=== PATIENT | male | born 1955 | race Caucasian/White ===

== ENCOUNTER → 2016-12-23 | Outpatient (CLI) | payer OTHER ==
--- NOTE | 2016-12-23 09:12 | US ---
EXAMINATION TYPE: US renals and bladder DATE OF EXAM: 12/23/2016 8:30 AM COMPARISON: NONE CLINICAL HISTORY: R31.0 gross hematuria. Sudden onset gross hematuria EXAM MEASUREMENTS: Right Kidney: 13.5 x 9.3 x 9.2 cm Left Kidney: 12.0 x 6.8 x 5.5 cm TECHNOLOGIST IMPRESSION: Right Kidney: large heterogeneous vascular mass = 13.2 x 11.6 x 13.1cm Left Kidney: cystic area upper pole = 1.0 x 1.0 x 1.0cm Bladder: irregular mass-like area posterior wall = 4.1 x 2.5 x 4.3cm Bilateral Jets seen: yes Normal Post Void Residual: patient unable to urinate There is no evidence for hydronephrosis at this point in time. No nephrolithiasis is seen. The urin mu bladder is anechoic. Bilateral ureteral jets are seen near the level of the mass on images saved . There is suspicious large heterogeneous solid partially exophytic mass from the right kidney worrisom e for neoplasm given patient history. There is also suspicious lobulated mass suspected in the bladde r in which neoplasm needs to BE excluded. IMPRESSION: Suspicious large right renal solid mass and bladder mass both worrisome for neoplasm. Urology and nida gical follow-up advised. Consider confirmation with CT urogram to confirm 2 suspicious areas.
--- NOTE | 2016-12-23 09:30 | US ---
EXAMINATION TYPE: US prostate transrectal DATE OF EXAM: 12/23/2016 8:52 AM COMPARISON: NONE CLINICAL HISTORY: N32.89 bladder spasm/R53.83 fatigue/R31.0 gross hematuria. This examination was performed using the transrectal probe. EXAM MEASUREMENTS: Gland Size: 4.6 x 2.8 x 4.1cm Volume: 28.0ml Predicted PSA: 3.36 Actual PSA (if available):unavailable TECHNOLOGIST IMPRESSION: Heterogeneous gland with no distinct nodule within peripheral zone. Calcifi cations noted The visualized seminal vesicles are unremarkable towards the beginning of study. Prostate gland is up per limits of normal in size with some central zone calcifications present. No worrisome hypoechoic n odule is identified. IMPRESSION: Prostate gland is upper limits of normal in size, no worrisome nodules are evident.
== END | disposition home or self-care (01) ==
LOC: RADUSMAIN 07:55
PROVIDERS: ATTEND Nurse Practitioner
DX: R53.83 Other fatigue (principal); R31.0 Gross hematuria; N32.89 Other specified disorders of bladder
CPT/HCPCS: 76770; 76872

== ENCOUNTER → 2016-12-27 | Outpatient (CLI) | payer OTHER ==
[2016-12-27 09:28] LABS: Blood Urea Nitrogen 17 mg/dL (9-20); Non-African American GFR(MDRD) 55 (>60 ml/min/1.73 sqM)
--- NOTE | 2016-12-27 11:08 | CT ---
EXAMINATION TYPE: CT chest abdomen w con DATE OF EXAM: 12/27/2016 10:41 AM COMPARISON: Correlation ultrasound performed 12/23/2016 HISTORY: 61-year-old male with renal and Bladder mass TECHNIQUE: Contiguous axial scanning of the chest and abdomen following administration of 80 ml Visip aque 320 IV contrast. Delayed images through the kidneys and coronal/sagittal reconstructions perfor med. CT DLP: 2179.8 mGycm Automated exposure control for dose reduction was used. FINDINGS: CHEST: The heart is normal size without pericardial effusion. Ectasia of the ascending aorta 3.8 cm with conventional arch vessel branching anatomy. There is an enlarged left tracheobronchial angle lymph node in the mediastinum measuring 1.4 cm. Zaid tional smaller mediastinal lymph nodes are not enlarged by CT size criteria. Mild bilateral gynecomas tia is noted. Numerous pulmonary nodules are present throughout both lungs, most of which are small measuring on th e order of 6 mm. Larger pulmonary nodules in the left mid and lower lung measure up to 1.2 and 1.8 cm , respectively. There is additional abnormal pleural-based soft tissue thickening measuring 3.2 x 1.1 cm posterolateral right upper lobe. No consolidation or pleural effusion. ABDOMEN: There is a hypervascular focus in the right hepatic dome, axial image 44 which is suspicious. The gallbladder, left adrenal gland, spleen, and pancreas appear within normal limits. Subcentimeter cortical cyst lateral upper pole left kidney. There is a very large heterogeneously enhancing mass involving the lateral right kidney extending fro m the upper pole to the lower pole measuring up to 13.8 cm craniocaudal by 14.5 cm AP by 10.7 cm wide . Portions of this mass extend to involve the renal sinus region and the collecting systems. There is also delayed excretion of contrast from the right kidney. There appears to be thrombus extending across the right renal vein and into the IVC extending up to t he level of the diaphragm, refer to coronal images 53 and 57. Some nodularity of the right adrenal gland 1.5 cm, axial image 59 and coronal image 60. Borderline enlarged retroperitoneal lymph nodes measure up to 7 mm particularly in the pericaval griselda on and are indeterminate. No mesenteric lymphadenopathy seen. Normal appendix. No dilated small bowel, free fluid, or free air. Mild stool burden without pericolon ic inflammatory change. BONES: Area of endosteal scalloping seen within the left iliac crest, axial image 94 is suspicious additiona l lytic area within the left L4 vertebral body with a mild pathologic compression deformity. Expansile lytic destruction involving the right acromion, axial image 2. Possible enhancing soft tiss ue lesion along the lateral mid right latissimus dorsi, axial image 33. IMPRESSION: 1. Large 13.8 cm heterogeneously enhancing mass involving the lateral right kidney highly suggestive of RCC extending from the upper pole to lower pole and demonstrating some invasion of the renal sinus and central collecting system. 2. Tumor versus bland thrombus within the right renal vein and extending up in the IVC to the level o f the diaphragm. 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 3. Findings compatible with metastatic disease with numerous pulmonary nodules measuring up to 1.8 cm , right upper lobe pleural-based metastasis measuring 3.2 cm, left tracheobronchial angle lymph node measuring 1.4 cm, and suspected hypervascular metastasis in the right hepatic dome. Right adrenal gla nd nodularity measuring 1.5 cm and borderline enlarged pericaval lymph nodes in the retroperitoneum m easuring 7 mm are equivocal for metastatic disease. 4. Additional osseous metastases with lytic destruction involving the right acromion, pathologic mild vertebral compression deformity of L4, and lytic metastatic disease involving the left iliac crest. Possible soft tissue metastasis involving the lateral right latissimus dorsi.
== END | disposition home or self-care (01) ==
LOC: RADCTMAIN 08:30
PROVIDERS: ATTEND Urology
DX: N28.89 Other specified disorders of kidney and ureter (principal); C79.51 Secondary malignant neoplasm of bone; E27.8 Other specified disorders of adrenal gland; R59.0 Localized enlarged lymph nodes
CPT/HCPCS: 82565; 84520; 71260; 74160; 36415; Q9967

== ENCOUNTER 2017-01-29 21:25 | Inpatient (IN) | payer OTHER ==
[2017-01-29] MEDS ORDERED: SODIUM CHLORIDE 0.9% 1,000 ML IV STA (22:07)
[2017-01-29] MEDS ORDERED: SODIUM CHLORIDE 0.9% 500 ML IV STA (22:07)
[2017-01-29] MEDS ORDERED: RX INFO: IV CONTRAST WAS GIVEN 1 EACH MISC MISCELLANE PRN (22:07)
--- NOTE | 2017-01-29 22:19 | ED ---
General Adult HPI - General Chief complaint: Shortness of Breath Stated complaint: Diff breathing Time Seen by Provider: 01/29/17 21:36 Source: patient, RN notes reviewed, old records reviewed Mode of arrival: wheelchair Limitations: no limitations - History of Present Illness Initial comments: This is a 61-year-old male here for evaluation of chest pain and shortness of breath right upper chest pain and shortness of breath for about 2 days now. Patient does have significant history of recent renal cell carcinoma, and multiple areas of metastasis. Patient denies fever, has been doing some supplementation with vitamins and medications at home no formal treatment. Patient denies again fever sick contacts, has not been overnight in the hospital. An pain is right-sided with movement - Related Data Home Medications Medication Instructions Recorded Confirmed No Known Home Medications [No 01/29/17 01/29/17 Known Home Medications] Allergies Allergy/AdvReac Type Severity Reaction Status Date / Time No Known Allergies Allergy Verified 01/29/17 21:29 Review of Systems ROS Statement: Those systems with pertinent positive or pertinent negative responses have been documented in the HPI. ROS Other: All systems not noted in ROS Statement are negative. Past Medical History Past Medical History: Cancer History of Any Multi-Drug Resistant Organisms: None Reported Past Surgical History: No Surgical Hx Reported Past Psychological History: No Psychological Hx Reported Smoking Status: Former smoker Past Alcohol Use History: None Reported Past Drug Use History: Marijuana General Exam Limitations: no limitations General appearance: anxious Head exam: Present: atraumatic, normocephalic, normal inspection Eye exam: Present: normal appearance, PERRL, EOMI. Absent: scleral icterus, conjunctival injection, periorbital swelling ENT exam: Present: normal exam, mucous membranes moist Neck exam: Present: normal inspection. Absent: tenderness, meningismus, lymphadenopathy Respiratory exam: Present: normal lung sounds bilaterally. Absent: respiratory distress, wheezes, rales, rhonchi, stridor Cardiovascular Exam: Present: normal rhythm, tachycardia, normal heart sounds. Absent: systolic murmur, diastolic murmur, rubs, gallop, clicks GI/Abdominal exam: Present: soft, normal bowel sounds. Absent: distended, tenderness, guarding, rebound, rigid Extremities exam: Present: normal inspection, full ROM, normal capillary refill. Absent: tenderness, pedal edema, joint swelling, calf tenderness Back exam: Present: normal inspection Neurological exam: Present: alert, oriented X3, CN II-XII intact Psychiatric exam: Present: normal affect, normal mood Skin exam: Present: warm, dry, intact, normal color. Absent: rash Course Vital Signs 01/29/17 01/30/17 21:29 00:01 Temperature 98.5 F 98.0 F Pulse Rate 120 H 100 Respiratory 20 20 Rate Blood Pressure 136/79 130/83 O2 Sat by Pulse 92 L 95 Oximetry - Reevaluation(s) Reevaluation #1: 01/30/17 00:31 Can continue significant shortness of breath, patient swears that is positional and not pain related. He does get very anxious and his pulse ox drops to the low 90s high 80s with tachypnea Medical Decision Making - Medical Decision Making 61-year-old male to the ER with new diagnosis of renal CA, with metastasis, patient does have CT positive for PE with shortness of breath and hypoxia. Patient's hypoxia is correctable with oxygen patient will be admitted for hemodynamic monitoring, anticoagulation and pain control. - Lab Data Result diagrams: 01/29/17 22:36 01/29/17 22:36 Lab Results 01/29/17 01/29/17 01/29/17 Range/Units 22:36 22:36 22:36 WBC 12.2 H (3.8-10.6) k/uL RBC 4.78 (4.30-5.90) m/uL Hgb 13.7 (13.0-17.5) gm/dL Hct 40.8 (39.0-53.0) % MCV 85.3 (80.0-100.0) fL MCH 28.6 (25.0-35.0) pg MCHC 33.6 (31.0-37.0) g/dL RDW 12.5 (11.5-15.5) % Plt Count 349 (150-450) k/uL Neutrophils % 77 % Lymphocytes % 13 % Monocytes % 7 % Eosinophils % 2 % Basophils % 1 % Neutrophils # 9.3 H (1.3-7.7) k/uL Lymphocytes # 1.6 (1.0-4.8) k/uL Monocytes # 0.8 (0-1.0) k/uL Eosinophils # 0.2 (0-0.7) k/uL Basophils # 0.1 (0-0.2) k/uL PT (9.0-12.0) sec INR (<1.1) APTT (22.0-30.0) sec D-Dimer (<0.60) mg/L FEU Sodium 137 (137-145) mmol/L Potassium 4.8 (3.5-5.1) mmol/L Chloride 102 (98-107) mmol/L Carbon Dioxide 25 (22-30) mmol/L Anion Gap 10 mmol/L BUN 16 (9-20) mg/dL Creatinine 1.00 (0.66-1.25) mg/dL Est GFR (MDRD) Af Amer >60 (>60 ml/min/1.73 sqM) Est GFR (MDRD) Non-Af >60 (>60 ml/min/1.73 sqM) Glucose 107 H (74-99) mg/dL Plasma Lactic Acid Janusz (0.7-2.0) mmol/L Calcium 10.6 H (8.4-10.2) mg/dL Phosphorus 3.8 (2.5-4.5) mg/dL Magnesium 2.1 (1.6-2.3) mg/dL Total Bilirubin 0.7 (0.2-1.3) mg/dL AST 33 (17-59) U/L ALT 31 (21-72) U/L Alkaline Phosphatase 77 (38-126) U/L Total Creatine Kinase 22 L (55-170) U/L CK-MB (CK-2) 0.5 (0.0-2.4) ng/mL CK-MB (CK-2) Rel Index 2.3 Troponin I <0.012 (0.000-0.034) ng/mL NT-Pro-B Natriuret Pep pg/mL Total Protein 6.8 (6.3-8.2) g/dL Albumin 3.7 (3.5-5.0) g/dL 01/29/17 01/29/17 01/29/17 Range/Units 22:36 22:36 22:36 WBC (3.8-10.6) k/uL RBC (4.30-5.90) m/uL Hgb (13.0-17.5) gm/dL Hct (39.0-53.0) % MCV (80.0-100.0) fL MCH (25.0-35.0) pg MCHC (31.0-37.0) g/dL RDW (11.5-15.5) % Plt Count (150-450) k/uL Neutrophils % % Lymphocytes % % Monocytes % % Eosinophils % % Basophils % % Neutrophils # (1.3-7.7) k/uL Lymphocytes # (1.0-4.8) k/uL Monocytes # (0-1.0) k/uL Eosinophils # (0-0.7) k/uL Basophils # (0-0.2) k/uL PT 10.9 (9.0-12.0) sec INR 1.1 (<1.1) APTT 23.5 (22.0-30.0) sec D-Dimer 5.00 H (<0.60) mg/L FEU Sodium (137-145) mmol/L Potassium (3.5-5.1) mmol/L Chloride (98-107) mmol/L Carbon Dioxide (22-30) mmol/L Anion Gap mmol/L BUN (9-20) mg/dL Creatinine (0.66-1.25) mg/dL Est GFR (MDRD) Af Amer (>60 ml/min/1.73 sqM) Est GFR (MDRD) Non-Af (>60 ml/min/1.73 sqM) Glucose (74-99) mg/dL Plasma Lactic Acid Janusz 1.3 (0.7-2.0) mmol/L Calcium (8.4-10.2) mg/dL Phosphorus (2.5-4.5) mg/dL Magnesium (1.6-2.3) mg/dL Total Bilirubin (0.2-1.3) mg/dL AST (17-59) U/L ALT (21-72) U/L Alkaline Phosphatase (38-126) U/L Total Creatine Kinase (55-170) U/L CK-MB (CK-2) (0.0-2.4) ng/mL CK-MB (CK-2) Rel Index Troponin I (0.000-0.034) ng/mL NT-Pro-B Natriuret Pep 254 pg/mL Total Protein (6.3-8.2) g/dL Albumin (3.5-5.0) g/dL - Radiology Data Radiology results: report reviewed (CT is positive for PE), image reviewed Critical Care Time Critical Care Time: Yes Total Critical Care Time: 31 Disposition Clinical Impression: Acute pulmonary embolism, Hypoxia Disposition: ADMITTED IP TO THIS [facility] Condition: Serious Referrals: Evelyn Negrete MD [Primary Care Provider] - 1-2 days
[2017-01-29 22:50] LABS: Basophils # (A) 0.1 k/uL (0-0.2); Basophils % (A) 1 %; CH 28.6; CHCM 33.6; Eosinophils # (A) 0.2 k/uL (0-0.7); Eosinophils % (A) 2 %; HCT 40.8 % (39.0-53.0); HDW 2.67; HGB 13.7 gm/dL (13.0-17.5); Luc # (Auto) 0.22; Luc % (Auto) 2; Lymphocytes # (A) 1.6 k/uL (1.0-4.8); Lymphocytes % (A) 13 %; MCH 28.6 pg (25.0-35.0); MCHC 33.6 g/dL (31.0-37.0); MCV 85.3 fL (80.0-100.0); Mean Platelet Volume 7.4; Monocytes # (A) 0.8 k/uL (0-1.0); Monocytes % (A) 7 %; Neutrophils # (A) 9.3 k/uL (1.3-7.7); Neutrophils % (A) 77 %; RBC 4.78 m/uL (4.30-5.90); RDW 12.5 % (11.5-15.5); WBC 12.2 k/uL (3.8-10.6); WBC (Perox) 12.46
[2017-01-29 23:04] LABS: ALT 31 U/L (21-72); AST 33 U/L (17-59); Alkaline Phosphatase 77 U/L (38-126); Anion Gap 10 mmol/L; Blood Urea Nitrogen 16 mg/dL (9-20); Calcium 10.6 mg/dL (8.4-10.2); Carbon Dioxide 25 mmol/L (22-30); Chloride 102 mmol/L (98-107); Glucose 107 mg/dL (74-99); Magnesium 2.1 mg/dL (1.6-2.3); Non-African American GFR(MDRD) >60 (>60 ml/min/1.73 sqM); Phosphorous 3.8 mg/dL (2.5-4.5); Potassium 4.8 mmol/L (3.5-5.1); Sodium 137 mmol/L (137-145); Total Bilirubin 0.7 mg/dL (0.2-1.3); Total Protein 6.8 g/dL (6.3-8.2)
[2017-01-29 23:12] LABS: INR 1.1 (<1.1); Prothrombin Time 10.9 sec (9.0-12.0)
[2017-01-29 23:21] LABS: Partial Thromboplastin Time 23.5 sec (22.0-30.0)
[2017-01-29 23:26] LABS: Creatine Kinase 22 U/L (55-170)
[2017-01-29 23:39] LABS: Creatine Kinase MB 0.5 ng/mL (0.0-2.4); Troponin I <0.012 ng/mL (0.000-0.034)
--- NOTE | 2017-01-29 23:57 | CT ---
EXAM: CT Angiography Chest With Intravenous Contrast. CLINICAL HISTORY: Reason: Pain TECHNIQUE: Axial computed tomographic angiography images of the chest with intravenous contrast using pulmonary embolism protocol. CTDI is 13 mGy and DLP is 493 mGy-cm This CT exam was performed using one or more of the following dose reduction techniques: automated exposure control, adjustment of the mA and/or kV according to patient size, and/or use of iterative reconstruction technique. MIP reconstructed images were created and reviewed. Coronal and sagittal reformatted images were created and reviewed. COMPARISON: CT 12/27/16 FINDINGS: Pulmonary arteries: Possible filling defects seen within the posterior and lateral segments of the left lower lobe suggestive of acute pulmonary embolism. Aorta: No acute findings. No thoracic aortic aneurysm. Lungs: Right upper lobe 3.7 x 5 cm alveolar opacity which may represent a new lung mass. Extensive pulmonary nodules are once again seen with interval increase in size the largest with the largest left upper lobe nodule measuring 7.3 mm, the largest left lower lobe nodule measuring 21 mm, the largest lingular lung nodule measuring up to 7.5 mm and the largest right lower lobe nodule measuring up to 12 mm. Previously seen right upper lobe pleural based mass is obscured. Pleural space: New large right pleural effusion. Heart: Unremarkable. No cardiomegaly. No significant pericardial effusion. No evidence of RV dysfunction. Bones/joints: There is a mass involving the right scapular spine measuring 8.5 x 6.7 cm, not fully visualized on the prior study. Lytic lesion of T2. Soft tissues: See above. Lymph nodes: AP window adenopathy measuring up to 2.3 cm, previously 2. 1 cm. Right hilar adenopathy appears to be slightly increased in size. Subcarinal, prevascular and paratracheal lymph nodes are also seen. IMPRESSION: 1. Possible filling defects seen within the posterior and lateral segments of the left lower lobe suggestive of acute pulmonary embolism. 2. There is a mass involving the right scapular spine measuring 8.5 x 6. 7 cm, not fully visualized on the prior study. 3. Right upper lobe 3.7 x 5 cm alveolar opacity which may represent a new lung mass. 4. New large right pleural effusion. 5. Extensive pulmonary nodules and adenopathy, increased in size. 6. Lytic lesion of T2. 7. Previously seen right upper lobe pleural based mass is obscured. [employer] 01/30/17 00:05 Call Doctor Regarding Pulmonary Embolism, called Dr. Guillermo on 01/30 00:05 (-04:00)
[2017-01-30] MEDS ORDERED: HEPARIN SODIUM,PORCINE 10,000 UNIT/ML 1 ML VIAL IV ONE (00:08)
[2017-01-30] MEDS ORDERED: HEPARIN SODIUM,PORCINE 5,000 UNIT/ML 1 ML VIAL IV PRN ×2 (00:08→16:07)
[2017-01-30] MEDS ORDERED: NITROGLYCERIN SL TABS 0.4 MG TAB SUBLINGUAL PRN (00:27)
[2017-01-30] MEDS: SODIUM CHLORIDE 0.9% 1,000 ML IV SCH ×3 (00:45→22:54)
[2017-01-30] MEDS: HEPARIN SODIUM,PORCINE/D5W PMX 25,000 UNIT in DEXTROSE/WATER 1 500ML.BAG IV SCH ×4 (00:47→22:53)
[2017-01-30 07:06] LABS: Creatine Kinase MB 0.9 ng/mL (0.0-2.4); Troponin I 0.013 ng/mL (0.000-0.034)
--- NOTE | 2017-01-30 10:27 | ECHOF ---
Referral Reason:PE MEASUREMENTS -------- HEIGHT: 172.7 cm WEIGHT: 114.3 kg BP: 138/87 RVIDd: 2.9 cm (< 3.3) IVSd: 1.1 cm (0.6 - 1.1) LVIDd: 4.8 cm (3.9 - 5.3) LVPWd: 1.1 cm (0.6 - 1.1) IVSs: 1.8 cm LVIDs: 3.0 cm LVPWs: 1.2 cm LA Diam: 3.2 cm (2.7 - 3.8) Ao Diam: 3.7 cm (2.0 - 3.7) AV Cusp: 2.3 cm (1.5 - 2.6) MV EXCURSION: 19.783 mm (> 18.000) MV EF SLOPE: 69 mm/s (70 - 150) EPSS: 0.8 cm MV E Christopher: 0.75 m/s MV DecT: 242 ms MV A Christopher: 0.67 m/s MV E/A Ratio: 1.12 FINDINGS -------- Sinus rhythm. This was a technically adequate study. The left ventricular size is normal. Left ventricular wall thickness is normal. Overall left ventricular systolic function is normal with, an EF between 55 - 60 %. The right ventricle is normal in size and function. The left atrial size is normal. The right atrium is normal in size. The aortic valve is trileaflet and appears structurally normal. Normal appearing mitral valve. No mitral regurgitation. The tricuspid valve appears structurally normal. No regurgitation noted The pulmonic valve was not well visualized. The aortic root is dilated measuring 3.7cm. AREA OF INTEREST IVC. Possible thrombus in IVC There is no pericardial effusion. CONCLUSIONS -------- 1. Sinus rhythm. 2. The aortic root is dilated measuring 3.7cm. 3. AREA OF INTEREST IVC. 4. Possible thrombus in IVC 5. There is no pericardial effusion. 6. This was a technically adequate study. 7. The left ventricular size is normal. 8. Left ventricular wall thickness is normal. 9. The left atrial size is normal. 10. The aortic valve is trileaflet and appears structurally normal. 11. Normal appearing mitral valve. 12. No regurgitation noted 13. The pulmonic valve was not well visualized. PARKING ENFORCER: Awa Gaitan RDCS
--- NOTE | 2017-01-30 10:48 | P.HPIM ---
History of Present Illness H&P Date: 01/30/17 Chief Complaint: Worsening shortness of breath This is a 61-year-old male, patient of Dr. Negrete. Patient has a known past medical history of recent diagnosis of renal cell carcinoma with metastatic disease about 4 months ago. He Was a former smoker. Patient presents to the emergency room with complaints of worsening shortness of breath. He reports symptoms started on Monday. He used some steam to help with the symptoms and was able to cough up yellowish phlegm. But then on Monday he was having difficulty breathing or talking in the front phone to a friend. The friend advised him to go to the emergency room. Patient waited a few more hours and noted that his breathing was not improving and did come in to the emergency room for further evaluation. Patient was hypoxic and tachycardic in the emergency room and was started on oxygen. He did have elevated d-dimer and a CTA was completed showing a pulmonary embolism in the left lower lobe. Patient was started on IV heparin. Cardiology and oncology have been consulted. Also on the computed tomography scan there is noted a mass involving the right scapular spine measuring 8.5 x 6 x 7 cm. Also a right upper lobe 3.7 x 5 cm alveolar opacity which may represent a new lung mass. A new large right pleural effusion. Extensive pulmonary nodules and adenopathy increased in size. Lytic lesion of T2. And previously seen right upper lobe pleural-based mass is obscured. Patient does report knowing he has multiple areas of cancer. He has seen oncology outpatient and is currently undergoing a holistic treatment. He has not received any chemo or radiation. Cardiology did order an echocardiogram showing a possible thrombus in the IVC. EF is 55-60%. Patient denies any chest pain. Denies any nausea or vomiting. He is complaining of some constipation and has been about 2 days since last bowel movement. Denies any burning with urination. Patient does admit to night sweats and weight loss. Patient also noted some right leg pain, mostly in the drying area a few days ago prior to the shortness of breath episodes. Review of Systems Please refer to HPI otherwise unremarkable Past Medical History Past Medical History: Cancer History of Any Multi-Drug Resistant Organisms: None Reported Past Surgical History: Ear Surgery, Orthopedic Surgery, Tonsillectomy Past Anesthesia/Blood Transfusion Reactions: No Reported Reaction Past Psychological History: No Psychological Hx Reported Smoking Status: Former smoker Past Alcohol Use History: None Reported Past Drug Use History: Marijuana Additional Drug Use History / Comment(s): pt states still smokes marijuana - Past Family History Father Family Medical History: Cancer Additional Family Medical History / Comment(s): dad 2015 from leukemia Mother Family Medical History: COPD, CVA/TIA Medications and Allergies Home Medications Medication Instructions Recorded Confirmed Type No Known Home Medications [No 01/29/17 01/30/17 History Known Home Medications] Allergies Allergy/AdvReac Type Severity Reaction Status Date / Time No Known Allergies Allergy Verified 01/29/17 21:29 Physical Exam Vitals: Vital Signs Temp Pulse Pulse Resp BP BP Pulse Ox 01/30/17 04:00 98.7 F 103 H 18 138/87 96 01/30/17 02:13 97.2 F L 98 20 137/78 95 01/30/17 01:31 98.7 F 108 H 18 135/91 95 Intake and Output 01/29/17 01/30/17 01/30/17 22:59 06:59 14:59 Intake Total 795.07 Output Total 500 Balance 795.07 -500 Intake: IV 564 Heparin Sodium,Porcine/ 164 D5w Pmx 25,000 unit In Dextrose/Water 1 500ml. bag @ 18 UNITS/KG/HR 41. 14 mls/hr IV .[id number] DARRIN Rx#:[id number] Sodium Chloride 0.9% 1, 400 000 ml @ 100 mls/hr IV . Q10H DARRIN Rx#:[id number] Intake, IV Titration 231.07 Amount Heparin Sodium,Porcine/ 231.07 D5w Pmx 25,000 unit In Dextrose/Water 1 500ml. bag @ 18 UNITS/KG/HR 41. 14 mls/hr IV .[id number] DARRIN Rx#:[id number] Output: Urine 500 Other: Voiding Method Urinal # Voids 1 Weight 110.3 kg Head normocephalic Neck supple Lungs diminished Heart regular rate and rhythm S1-S2, no rub or gallop Abdomen is soft nontender distended positive bowel sounds no hepatosplenomegaly Extremities no edema, no pain with palpation. Right shoulder palpable mass Neuro alert and orientated to 3 Results CBC & Chem 7: 01/29/17 22:36 01/29/17 22:36 Labs: Abnormal Lab Results - Last 24 Hours (Table) 01/30/17 01/30/17 Range/Units 05:37 05:37 APTT 45.9 H (22.0-30.0) sec Total Creatine Kinase 30 L (55-170) U/L Thrombosis Risk Factor Assmnt - Choose All That Apply Any of the Below Risk Factors Present?: Yes Each Factor Represents 1 point: Age 41-60 years Other Risk Factors: No Other congenital or acquired thrombophilia - If yes, enter type in comment: No Thrombosis Risk Factor Assessment Total Risk Factor Score: 1 Thrombosis Risk Factor Assessment Level: Low Risk Assessment and Plan Plan: 1. Acute pulmonary embolism: Patient started on IV heparin in the emergency room. Pulmonary service consulted. Agree with Dopplers of the lower extremity 2. Renal cell carcinoma with metastatic disease: Oncology has been consulted. Patient has not received chemo or radiation or any surgical intervention. He is proceed with a holistic approach. His cancer was diagnosed about 4 months ago 3. 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 Cardiology following. EF of 55 -60% 4. Former smoking history 5. Constipation start Colace 6. Pain management: Continue with the morphine as needed. At this time patient is refusing pain medication. 8. Acute hypoxic respiratory failure secondary to his pulmonary embolism GI prophylaxis Pepcid and DVT prophylaxis IV heparin Time with Patient: Greater than 30 (Greater than 50% of the total time spent in counseling and coordination of care.I performed an examination of the patient and discussed their management with the physician Pst Specialist. I have reviewed the Physician Pst Specialist's notes and agree with the documented findings and plan of care)
--- NOTE | 2017-01-30 11:55 | US ---
EXAMINATION TYPE: US venous doppler duplex LE BI DATE OF EXAM: 01/30/2017 11:27 AM COMPARISON: NONE CLINICAL HISTORY: PE. SIDE PERFORMED: Bilateral VESSELS IMAGED: External Iliac Vein (EIV) Common Femoral Vein Deep Femoral Vein Greater Saphenous Vein * Femoral Vein Popliteal Vein Small Saphenous Vein * Proximal Calf Veins- not visualized, large body habitus/swelling (* superficial vessels) Severe rouleaux seen on right, with no evidence of clot, seen on left as well but not as severe. Right Leg: Negative for DVT Left Leg: Negative for DVT No popliteal fossa lesion is seen. IMPRESSION: THIS EXAMINATION IS NEGATIVE FOR DVT IN BOTH LEGS.
[2017-01-30] MEDS: DOCUSATE 100 MG CAP PO SCH ×2 (12:31→20:17)
[2017-01-30] MEDS: FAMOTIDINE 20 MG TAB PO SCH (12:32)
[2017-01-30 13:05] LABS: Creatine Kinase MB 1.1 ng/mL (0.0-2.4); Troponin I 0.014 ng/mL (0.000-0.034)
--- NOTE | 2017-01-30 14:25 | CONS ---
DATE OF CONSULTATION: REASON FOR CONSULTATION: Cardiac evaluation and treatment. HISTORY OF PRESENT ILLNESS: Mr. Givens is a known patient of renal cancer with mets diagnosed about a month ago. Patient apparently was not feeling well for a year. Had some blood work at that time. Renal cancer was not diagnosed. Patient has not had any chemotherapy or radiation at the present time. Not being evaluated by oncologist ( ). Patient admitted to the hospital with increasing shortness of breath for the last 2 days, noted to have pulmonary embolism. Patient has METS to the right scapula and METs to the T1 and also lung mass noted consistent with renal cell cancer with METs to be confirmed but clinically suspected. Patient lives alone and patient used to be a smoker, quit smoking approximately 2 years ago. Not been feeling well over the last year. Has not been on any medications at present time. Patient since admission has been on heparin infusion and we will get an echocardiogram to assess LV function. REVIEW OF SYSTEMS: The patient denies any difficulties in hearing or vision, continues to have recurrent pains and not feeling well. Denies any cough or expectoration. Denies any cardiac problems. No history of hypertension, no history of diabetes. Patient is a former smoker; quit smoking 2 years ago. Patient's past history of marijuana use. Physical examination revealed a 61-year-old gentleman, who appears to be in mild distress with stable vital signs with a pulse rate of 100 beats per minute and regular, blood pressure 130/83, respirations 20. Head normocephalic. HEENT unremarkable. NECK: Supple. No thyroid enlargement. No bruit noted. Good carotid upstroke bilaterally. Chest is symmetrical. CARDIAC EXAMINATION: Chest is symmetrical and mass noted on the right scapula ( ) because of the mass. Neck is supple. No JVD. CARDIAC EXAMINATION: S1 and S2. Lungs are clinically to auscultation and percussion. ABDOMEN: No organomegaly. Active bowel sounds. EXTREMITIES: Peripheral pulses. No pedal edema. ADVERTISING OPERATIONS MANAGER examination: Grossly within normal limits. EKG revealed normal sinus rhythm, normal ST-T waves. Troponin x3 are negative. Patient D. dimer is elevated 5. Chest CT showed pulmonary nodules and scapular lesion and T1 lesion and also pulmonary embolism with pulmonary nodules. ASSESSMENT: 1. Acute pulmonary embolism. 2. Metastatic renal cell cancer untreated. 3. Past history of smoking. 4. Past history of marijuana use. RECOMMENDATIONS: Concur with current therapy. The patient is on heparin. Supportive care. We will get an echocardiogram to assess LV function. Thanks again for this kind referral and we will continue to follow him with interest.
--- NOTE | 2017-01-30 19:14 | P.CONS ---
History of Present Illness - Reason for Consult Consult date: 01/30/17 [facility] Requesting physician: Adria Guillermo - Chief Complaint STU, SOB - History of Present Illness Mr. Givens is a pleasant male who presented with acute onset of hematuria 12/19/16. He was treated for UTI with Bactrim and had an renal US on . This revealed 13.2 cmx 11.6 cm mass associated with the right kidney and a possible lobulated mass in the bladder. Urology did TRUS which was normal, PSA was negative, CT CAP on 12/27/16 showed a left tracheobronchial node 1.4 cm, multiple bilateral lung nodules, largest 1.8 cm, a pleural based mass in the posterolateral RUL 3.2 cm x 1.1 cm, a suspicious focus in the right hepatic dome , a 13.8 cm x 14.5 cm hypervascular mass associated with the right kidney with a thrombus extending into the right renal vein, lesions in the left iliac crest , left L4, right acromion along with a soft tissue mass involving the right latissimus dorsi muscle. He was seen in the office by Dr. Armando on 01/09/17 and was referred for a biopsy of the rt shoulder mass which was done on 01/11/17, path revealed poorly differentiated carcinoma most consistent with metastatic renal cell carcinoma. Patient was seen on 01/[address] Armando at which time diagnosis of stage IV renal cell carcinoma was communicated to the patient. He was explained to him that this was not curable with the objective of treatment to be prolongation of life and palliation of symptoms. Initial treatment with Votrient was recommended with Xgeva for bone metastases. The patient was not interested in pursuing chemotherapy at that time time as he wanted to pursue natural methods. He also wanted a opinion from [facility]. I confirm with the patient he did have his second opinion. Both free it was their recommendation as well. Patient states that he was doing very well and feeling much better with things such as nutrient dense diet, multiple herbs as well as alkaline water. He states he quit all of these last to see how he would feel. By Monday the patient was experiencing severe shortness of breath and difficulty in breathing. The patient could not walk more than a few feet without his chest hurting and being short of breath. Patient came to the hospital and has been diagnosed with pulmonary embolism. Heparin drip has been initiated. Doppler of bilateral lower extremities does not reveal DVT. Patient is still complaining of chest discomfort at this time. Patient denies any nosebleeds or hemoptysis, no current nausea or vomiting, he denies substernal or radiating chest pain, he can still only walk a few feet without being severely short of breath, he is requiring oxygen at this time. Review of Systems All systems: negative Constitutional: Reports as per HPI Past Medical History Past Medical History: Cancer History of Any Multi-Drug Resistant Organisms: None Reported Past Surgical History: Ear Surgery, Orthopedic Surgery, Tonsillectomy Past Anesthesia/Blood Transfusion Reactions: No Reported Reaction Past Psychological History: No Psychological Hx Reported Smoking Status: Former smoker Past Alcohol Use History: None Reported Past Drug Use History: Marijuana Additional Drug Use History / Comment(s): pt states still smokes marijuana - Past Family History Father Family Medical History: Cancer Additional Family Medical History / Comment(s): dad 2015 from leukemia Mother Family Medical History: COPD, CVA/TIA Medications and Allergies Home Medications Medication Instructions Recorded Confirmed Type No Known Home Medications [No 01/29/17 01/30/17 History Known Home Medications] Allergies Allergy/AdvReac Type Severity Reaction Status Date / Time No Known Allergies Allergy Verified 01/29/17 21:29 Physical Exam Vitals: Vital Signs Temp Pulse Pulse Resp BP BP Pulse Ox 01/30/17 16:26 98 01/30/17 12:00 98.7 F 97 18 154/94 96 01/30/17 08:00 98.2 F 95 18 133/93 97 01/30/17 04:00 98.7 F 103 H 18 138/87 96 01/30/17 02:13 97.2 F L 98 20 137/78 95 01/30/17 01:31 98.7 F 108 H 18 135/91 95 Intake and Output 01/30/17 01/30/17 01/30/17 06:59 14:59 22:59 Intake Total 795.07 388.93 Output Total 500 Balance 795.07 -111.07 Intake: IV 564 Heparin Sodium,Porcine/ 164 D5w Pmx 25,000 unit In Dextrose/Water 1 500ml. bag @ 18 UNITS/KG/HR 41. 14 mls/hr IV .[id number] [facility] Rx#:[id number] Sodium Chloride 0.9% 1, 400 000 ml @ 100 mls/hr IV . Q10H [facility] Rx#:[id number] Intake, IV Titration 231.07 268.93 Amount Heparin Sodium,Porcine/ 231.07 268.93 D5w Pmx 25,000 unit In Dextrose/Water 1 500ml. bag @ 18 UNITS/KG/HR 41. 14 mls/hr IV .[id number] [facility] Rx#:[id number] Oral 120 Output: Urine 500 Other: Voiding Method Urinal Urinal # Voids 1 Weight 110.3 kg - Constitutional General appearance: cooperative, mild distress, obese - EENT Eyes: anicteric sclerae, EOMI, PERRLA, normal appearance ENT: normal oropharynx - Neck Neck: no lymphadenopathy - Respiratory Respiratory: right: diminished, left: CTA - Cardiovascular Rhythm: regular Heart sounds: normal: S1, S2 leg Peripheral Edema: bilateral: None - Gastrointestinal General gastrointestinal: no absent bowel sounds, no decreased bowel sounds, no distended, no hepatomegaly, no hyperactive bowel sounds, normal bowel sounds, no organomegaly, no rigid, no scaphoid, soft, no splenomegaly, no tenderness, no umbilical hernia, no ventral hernia - Integumentary Integumentary: pale - Neurologic Neurologic: CNII-XII intact - Musculoskeletal Musculoskeletal: generalized weakness, strength equal bilaterally - Psychiatric Psychiatric: A&O x's 3, appropriate affect, intact judgment & insight Results CBC & Chem 7: 01/29/17 22:36 01/29/17 22:36 Labs: Abnormal Lab Results - Last 24 Hours (Table) 01/30/17 01/30/17 01/30/17 Range/Units 05:37 05:37 12:20 APTT 45.9 H (22.0-30.0) sec Total Creatine Kinase 30 L 33 L (55-170) U/L 01/30/17 Range/Units 12:20 APTT 37.4 H (22.0-30.0) sec Total Creatine Kinase (55-170) U/L Comments: BLE doppler report reviewed CT scan - chest: report reviewed Assessment and Plan (1) Renal cell carcinoma Narrative/Plan: Patient knows of metastatic renal cell carcinoma diagnosis. Patient is interested first in radiation to see if he can get control over his shoulder pain. Consultation will be placed for radiation oncology to evaluate patient. Patient is not interested currently in beginning any Votrient therapy but he states he will meet with Dr. Armando after he has spoken with radiation oncology. We will put a follow-up appointment in the patient's chart tomorrow to see Dr. Armando in the next few weeks. Status: Acute (2) Metastatic carcinoma Status: Acute (3) Cancer related pain Narrative/Plan: We will order patient [place] and see if he is willing to utilize the pain medication. We will also consult radiation oncology to evaluate patient Status: Acute (4) Acute pulmonary embolism Narrative/Plan: Patient is still very symptomatic. We'll continue heparin drip for at least 48- 72 hours. I did talk with the patient about multiple options for anticoagulation orally. Coumadin is not the best choice for this patient as he is treating himself with multiple herbs and diet control. Patient does have fluctuating renal function, therefore best choice would be eliquis. Patient will be started on 10 mg twice a day for 7 days then he will convert over to 5 mg twice a day. Status: Acute
[2017-01-31] MEDS: MORPHINE SULFATE 4 MG/ML SYRINGE IV PRN ×3 (03:28→15:28)
[2017-01-31] MEDS: HYDROcodone/APAP 5-325MG 1 EACH TAB PO PRN ×2 (06:26→12:55)
[2017-01-31 06:42] LABS: Basophils # (A) 0.1 k/uL (0-0.2); Basophils % (A) 1 %; CH 28.5; CHCM 33.1; Eosinophils # (A) 0.3 k/uL (0-0.7); Eosinophils % (A) 3 %; HCT 38.7 % (39.0-53.0); HDW 2.64; HGB 12.5 gm/dL (13.0-17.5); Luc # (Auto) 0.27; Luc % (Auto) 3; Lymphocytes # (A) 1.4 k/uL (1.0-4.8); Lymphocytes % (A) 14 %; MCHC 32.4 g/dL (31.0-37.0); MCV 86.4 fL (80.0-100.0); Mean Platelet Volume 7.2; Monocytes # (A) 0.7 k/uL (0-1.0); Monocytes % (A) 6 %; Neutrophils # (A) 7.7 k/uL (1.3-7.7); Neutrophils % (A) 74 %; RBC 4.47 m/uL (4.30-5.90); RDW 12.5 % (11.5-15.5); WBC 10.4 k/uL (3.8-10.6); WBC (Perox) 10.89
[2017-01-31 06:51] LABS: INR 1.2 (<1.1); Partial Thromboplastin Time 63.1 sec (22.0-30.0); Prothrombin Time 11.6 sec (9.0-12.0)
[2017-01-31] MEDS: SODIUM CHLORIDE 0.9% 1,000 ML IV SCH (07:04)
[2017-01-31 07:24] LABS: ALT 41 U/L (21-72); AST 26 U/L (17-59); Alkaline Phosphatase 77 U/L (38-126); Anion Gap 8 mmol/L; Blood Urea Nitrogen 11 mg/dL (9-20); Calcium 9.7 mg/dL (8.4-10.2); Carbon Dioxide 29 mmol/L (22-30); Chloride 102 mmol/L (98-107); Cholesterol 130 mg/dL (<200); Glucose 110 mg/dL (74-99); HDL Cholesterol 25 mg/dL (40-60); Non-African American GFR(MDRD) >60 (>60 ml/min/1.73 sqM); Potassium 4.3 mmol/L (3.5-5.1); Sodium 139 mmol/L (137-145); Total Bilirubin 0.5 mg/dL (0.2-1.3); Total Protein 6.1 g/dL (6.3-8.2); Triglycerides 179 mg/dL (<150)
[2017-01-31] MEDS: FAMOTIDINE 20 MG TAB PO SCH (09:42)
[2017-01-31] MEDS: DOCUSATE 100 MG CAP PO SCH ×2 (09:42→21:18)
[2017-01-31] MEDS: ASPIRIN 325 MG TAB PO SCH (09:42)
--- NOTE | 2017-01-31 12:01 | P.PN ---
Subjective Patient is complaining of pain today that is not well controlled. He is getting IV morphine and oral [place] around the clock with minimal relief. He said that his pain is worse in the right shoulder as well as his lower back. He is rating his pain as 8 out of 10 in severity. His daughter is at bedside. Objective - Vital Signs Vital signs: Vital Signs Temp 96.4 F L 01/31/17 11:21 Pulse 96 01/31/17 11:21 Resp 18 01/31/17 11:21 BP 141/83 01/31/17 11:21 Pulse Ox 97 01/31/17 11:21 Intake & Output 01/30/17 01/31/17 01/31/17 18:59 06:59 18:59 Intake Total 388.93 748.497 120 Output Total 500 1200 300 Balance -111.07 -451.503 -180 Weight 108.3 kg Intake: Intake, IV Titration 268.93 748.497 Amount Heparin Sodium,Porcine/ 748.497 D5w Pmx 25,000 unit In Dextrose/Water 1 500ml. bag @ 18 UNITS/KG/HR 39.7 mls/hr IV .[id number] [facility] Rx#:[id number] Heparin Sodium,Porcine/ 268.93 D5w Pmx 25,000 unit In Dextrose/Water 1 500ml. bag @ 18 UNITS/KG/HR 41. 14 mls/hr IV .[id number] [facility] Rx#:[id number] Oral 120 120 Output: Urine 500 1200 300 Other: Voiding Method Urinal Urinal Urinal # Voids 1 1 - Exam General: The patient is awake and alert, in no distress Eye: there is normal conjunctiva bilaterally. Neck: The neck is supple, there is no JVD. Cardiovascular: Normal S1-S2, no S3-S4, no murmurs. Respiratory: Lungs clear to auscultation bilaterally Gastrointestinal: Abdomen is soft, nontender Musculoskeletal: There is no pedal edema. Neurological:. Speech is normal. Skin: Skin is warm and dry - Labs CBC & Chem 7: 01/31/17 06:19 01/31/17 06:19 Labs: Abnormal Lab Results - Last 24 Hours (Table) 01/30/17 01/30/17 01/30/17 Range/Units 12:20 12:20 21:56 Hgb (13.0-17.5) gm/dL Hct (39.0-53.0) % APTT 37.4 H 84.4 H (22.0-30.0) sec Glucose (74-99) mg/dL Total Creatine Kinase 33 L (55-170) U/L Total Protein (6.3-8.2) g/dL Albumin (3.5-5.0) g/dL Triglycerides (<150) mg/dL HDL Cholesterol (40-60) mg/dL 01/31/17 01/31/17 01/31/17 Range/Units 06:19 06:19 06:19 Hgb 12.5 L (13.0-17.5) gm/dL Hct 38.7 L (39.0-53.0) % APTT 63.1 H (22.0-30.0) sec Glucose 110 H (74-99) mg/dL Total Creatine Kinase (55-170) U/L Total Protein 6.1 L (6.3-8.2) g/dL Albumin 3.2 L (3.5-5.0) g/dL Triglycerides 179 H (<150) mg/dL HDL Cholesterol 25 L (40-60) mg/dL Assessment and Plan Plan: 1. Acute pulmonary embolism: Patient started on IV heparin. Pulmonary and hematology following. Plan to continue IV heparin until 02/02/17 then switched to Eliquis as recommended by hematology. Lower extremity ultrasound negative for DVT. 2. Metastatic renal cell carcinoma: Oncology following. Patient was following holistic treatment and natural remedies since diagnosis approximately a month ago. He is not a candidate for systemic therapy at this time. Radiation oncology consulted for possible palliative treatment. 3. 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 Cardiology following. EF of 55 -60% 4. Former smoking history 5. Constipation started Colace 6. Pain management: I would add extended release morphine 15 mg every 8 hours to his regimen. Continue with the IV morphine as needed. 8. Acute hypoxic respiratory failure secondary to his pulmonary embolism Today, I discussed goals of care with the patient and his daughter at bedside. He is interested in palliative care and comfort measures. We agreed to consult hospice for an informative meeting. We will continue current regimen otherwise. Repeat lab work in the morning. Appreciate senior microsoft consultant's recommendations.
--- NOTE | 2017-01-31 12:11 | P.PN ---
Subjective Principal diagnosis: PE This is a pleasant 61-year-old patient with recent diagnosis of renal cell carcinoma with metastatic disease approximately 4 months ago. He presented to the hospital with symptoms of progressively worsening shortness of breath. Patient was found to have a pulmonary embolism and was initiated on anticoagulation. Also on the computed tomography scan there was a noted mass involving the right scapular spine, right upper lobe alveolar up a city which also may represent a new lung mass. Patient had presence of a large right pleural effusion with extensive pulmonary nodules and adenopathy. Echocardiogram with Doppler study was performed which revealed a normal ejection fraction with possible thrombus in the IVC. At the time of my examination this morning, patient had no complaints. Overall stable from a cardiology perspective, on Eliquis 10 mg by mouth twice a day. Objective - Vital Signs Vital signs: Vital Signs Temp 96.4 F L 01/31/17 11:21 Pulse 96 01/31/17 11:21 Resp 18 01/31/17 11:21 BP 141/83 01/31/17 11:21 Pulse Ox 97 01/31/17 11:21 Intake & Output 01/30/17 01/31/17 01/31/17 18:59 06:59 18:59 Intake Total 388.93 748.497 120 Output Total 500 1200 300 Balance -111.07 -451.503 -180 Weight 108.3 kg Intake: Intake, IV Titration 268.93 748.497 Amount Heparin Sodium,Porcine/ 748.497 D5w Pmx 25,000 unit In Dextrose/Water 1 500ml. bag @ 18 UNITS/KG/HR 39.7 mls/hr IV .[id number] [facility] Rx#:[id number] Heparin Sodium,Porcine/ 268.93 D5w Pmx 25,000 unit In Dextrose/Water 1 500ml. bag @ 18 UNITS/KG/HR 41. 14 mls/hr IV .[id number] [facility] Rx#:[id number] Oral 120 120 Output: Urine 500 1200 300 Other: Voiding Method Urinal Urinal Urinal # Voids 1 1 - Exam PHYSICAL EXAMINATION: HEENT: Head is atraumatic, normocephalic. Pupils equal, round. Neck is supple. There is no elevated jugular venous pressure. HEART EXAMINATION: Heart S1, S2 normal. No murmur or gallop heard. CHEST EXAMINATION: Lungs are clear to auscultation and precussion. No chest wall tenderness is noted on palpation or with deep breathing. ABDOMEN: Soft, nontender. Bowel sounds are heard. No organomegaly noted. EXTREMITIES: 2+ peripheral pulses with no evidence of peripheral edema and no calf tenderness noted. NEUROLOGIC patient is awake, alert and oriented -3. . - Labs CBC & Chem 7: 01/31/17 06:19 01/31/17 06:19 Labs: Abnormal Lab Results - Last 24 Hours (Table) 01/30/17 01/30/17 01/30/17 Range/Units 12:20 12:20 21:56 Hgb (13.0-17.5) gm/dL Hct (39.0-53.0) % APTT 37.4 H 84.4 H (22.0-30.0) sec Glucose (74-99) mg/dL Total Creatine Kinase 33 L (55-170) U/L Total Protein (6.3-8.2) g/dL Albumin (3.5-5.0) g/dL Triglycerides (<150) mg/dL HDL Cholesterol (40-60) mg/dL 01/31/17 01/31/17 01/31/17 Range/Units 06:19 06:19 06:19 Hgb 12.5 L (13.0-17.5) gm/dL Hct 38.7 L (39.0-53.0) % APTT 63.1 H (22.0-30.0) sec Glucose 110 H (74-99) mg/dL Total Creatine Kinase (55-170) U/L Total Protein 6.1 L (6.3-8.2) g/dL Albumin 3.2 L (3.5-5.0) g/dL Triglycerides 179 H (<150) mg/dL HDL Cholesterol 25 L (40-60) mg/dL Assessment and Plan (1) Acute pulmonary embolism Status: Acute (2) Metastatic carcinoma Status: Acute (3) Renal cell carcinoma Status: Acute Plan: Cardiology's perspective, we'll follow this patient with you now on an as- needed basis only, please hesitate to call with any questions. DNP note has been reviewed, I agree with a documented findings and plan of care. Patient was seen and examined.
--- NOTE | 2017-01-31 14:27 | P.CNPUL ---
History of Present Illness Consult date: 01/31/17 Reason for consult: dyspnea, lung mass Chief complaint: shortness of breath, difficulty breathing, shoulder pain History of present illness: This is a very sad case of a 61-year-old white male with a history of widely metastatic hypernephroma. The patient has a significant disease not only his kidney but distant sites including the right shoulder for had liver long, etc. He apparently was not taking any medications at home other than a number of different supplements that he was using for pain. He's overall homeopathic- type treatments. The patient presented to the emergency room with complaints of shortness of breath. The patient apparently had a CT that was possibly suggestive of PE in the distal pulmonary artery on the left side. He's got more than enough disease in the right chest explain his shortness of breath. He also has a large metastatic deposit near the right shoulder blade. He was on no medications at home. Does not have any ALLERGIES. The patient's currently on IV heparin. Apparently doesn't start the patient on Xarelto which is a factor X a inhibitor on . I think really the patient showed referred to hospice. CODE STATUS should be addressed immediately. Review of Systems The 12 point review of system is positive for shortness of breath and also primarily right shoulder pain. He also may be experiencing some pelvic and groin pain as well. Past Medical History Past Medical History: Cancer History of Any Multi-Drug Resistant Organisms: None Reported Past Surgical History: Ear Surgery, Orthopedic Surgery, Tonsillectomy Past Anesthesia/Blood Transfusion Reactions: No Reported Reaction Past Psychological History: No Psychological Hx Reported Smoking Status: Former smoker Past Alcohol Use History: None Reported Past Drug Use History: Marijuana Additional Drug Use History / Comment(s): pt states still smokes marijuana - Past Family History Father Family Medical History: Cancer Additional Family Medical History / Comment(s): dad 2016 from leukemia Mother Family Medical History: COPD, CVA/TIA Medications and Allergies Home Medications Medication Instructions Recorded Confirmed Type No Known Home Medications [No 01/29/17 01/30/17 History Known Home Medications] Allergies Allergy/AdvReac Type Severity Reaction Status Date / Time No Known Allergies Allergy Verified 01/29/17 21:29 Physical Exam Osteopathic Statement: *. No significant issues noted on an osteopathic structural exam other than those noted in the History and Physical/Consult. Vitals: Vital Signs Temp Pulse Resp BP Pulse Ox 01/31/17 12:00 95 20 01/31/17 11:21 96.4 F L 96 18 141/83 97 01/31/17 09:27 95 01/31/17 08:50 96 18 01/31/17 08:05 96.5 F L 102 H 18 126/78 95 01/31/17 08:00 18 01/31/17 03:43 99.1 F 100 18 141/82 96 01/31/17 00:00 98.5 F 96 18 136/85 97 01/30/17 20:00 99.6 F 95 18 127/83 94 L 01/30/17 16:26 98 01/30/17 16:00 97.6 F 100 18 149/82 96 Intake and Output 01/30/17 01/31/17 01/31/17 22:59 06:59 14:59 Intake Total 347.057 401.44 210 Output Total 1200 300 Balance 347.057 -798.56 -90 Intake: Intake, IV Titration 347.057 401.44 Amount Heparin Sodium,Porcine/ 347.057 401.44 D5w Pmx 25,000 unit In Dextrose/Water 1 500ml. bag @ 18 UNITS/KG/HR 39.7 mls/hr IV .[id number] [facility] Rx#:[id number] Oral 210 Output: Urine 1200 300 Other: Voiding Method Urinal Urinal Urinal # Voids 1 300 Weight 108.3 kg No acute distress, oriented 3. He does have some conversational dyspnea. HEENT examinations grossly unremarkable. Mucous membranes are moist. No oral lesions. He does have a lesion on his right forehead which is consistent with metastatic hypernephroma. Neck supple. Full range of motion. No adenopathy or thyromegaly. Neck veins are flat. Cardio vascular examination reveals regular rhythm rate. S1 and S2 normal. No S3-S4 or murmur. Lungs reveal few scattered rhonchi. No wheezes. No crackles. Breath sounds are slightly diminished on the right side. Abdomen soft bowel sounds are heard. Extremities are intact Results - Laboratory Findings CBC and BMP: 01/31/17 06:19 01/31/17 06:19 PT/INR, D-dimer PT 11.6 sec (9.0-12.0) 01/31/17 06:19 INR 1.2 (<1.1) 01/31/17 06:19 D-Dimer 5.00 mg/L FEU (<0.60) H 01/29/17 22:36 Abnormal lab findings: Abnormal Labs 01/30/17 01/30/17 01/30/17 05:37 05:37 12:20 Hgb Hct APTT 45.9 H Glucose Total Creatine Kinase 30 L 33 L Total Protein Albumin Triglycerides HDL Cholesterol 01/30/17 01/30/17 01/31/17 12:20 21:56 06:19 Hgb 12.5 L Hct 38.7 L APTT 37.4 H 84.4 H Glucose Total Creatine Kinase Total Protein Albumin Triglycerides HDL Cholesterol 01/31/17 01/31/17 06:19 06:19 Hgb Hct APTT 63.1 H Glucose 110 H Total Creatine Kinase Total Protein 6.1 L Albumin 3.2 L Triglycerides 179 H HDL Cholesterol 25 L - Diagnostic Findings Chest x-ray: image reviewed CT scan - chest: image reviewed (Chest x-ray labs and medications are all reviewed.) Assessment and Plan (1) Acute pulmonary embolism Status: Acute (2) Cancer related pain Status: Acute (3) Hypoxia Status: Acute (4) Metastatic carcinoma Status: Acute (5) Renal cell carcinoma Status: Acute Plan: Plan The patient's a pulmonary embolism may actually represent tumor emboli. I'm not sure that I really see much of a pulmonary embolism in the left lower lobe left lower lobe pulmonary artery. Anyway, as mentioned previously, he has more than enough disease in the right chest explain his shortness of breath. I would be inclined to be more conservative with this gentleman and off for him hospice consultation and/or palliative care consultation. Should he be started on blood thinners, he will need lifelong anticoagulation. No additional recommendations are made. Prognosis is very poor. Time with Patient: Greater than 30
--- NOTE | 2017-01-31 15:04 | P.CONS ---
History of Present Illness - Reason for Consult Consult date: 01/31/17 Right shoulder pain Requesting physician: Ayla Hays - Chief Complaint I have severe shoulder pain - History of Present Illness Mr. Givens is a pleasant 61-year-old male with a diagnosis of metastatic renal cell carcinoma. He initially presented and December 19, 2016 with acute onset hematuria. He was treated with antibiotics and underwent a renal ultrasound on December 22, 2016. Ultrasound identified a 13.2 cm mass associated with the right kidney. CT of the chest abdomen pelvis performed on December 27, 2016 identified a tracheobronchial node, multiple bilateral lung nodules, a pleural-based mass in the posterior lateral right upper lobe, and multiple bony metastatic lesions. Mr. Givens subsequently underwent a biopsy of the right shoulder mass on January 11, 2017. Pathology revealed poorly differentiated carcinoma most consistent with metastatic renal cell. Mr. Givens was evaluated by Dr. Armando who discussed the use of palliative chemotherapy as well as XGEVA for bone metastases. Mr. Givens wanted to approach his new diagnosis of malignancy with natural treatments prior to any chemotherapy. He did undergo a second opinion at [facility] which was consistent with Dr. Clancy opinion. Mr. Givens is now being seen as an inpatient with chief complaint of worsening shortness of breath and right upper shoulder pain. On admission, CT of the chest was performed and identified possible filling defects within the posterior and lateral segments of left lower lobe also noted was a mass involving the right Spine now measuring 8.5 x 6.7 cm in size. A large right upper lobe opacity was seen which may represent collapse and/or pleural effusion. Mr. Givens is now being seen for discussion of palliative radiotherapy Review of Systems Constitutional: Reports as per HPI Cardiovascular: Reports chest pain, Reports dyspnea on exertion Respiratory: Reports congestion, Reports dyspnea Gastrointestinal: Reports dyspepsia Musculoskeletal: Reports myalgias, Reports neck pain, Reports neck stiffness Past Medical History Past Medical History: Cancer History of Any Multi-Drug Resistant Organisms: None Reported Past Surgical History: Ear Surgery, Orthopedic Surgery, Tonsillectomy Past Anesthesia/Blood Transfusion Reactions: No Reported Reaction Past Psychological History: No Psychological Hx Reported Smoking Status: Former smoker Past Alcohol Use History: None Reported Past Drug Use History: Marijuana Additional Drug Use History / Comment(s): pt states still smokes marijuana - Past Family History Father Family Medical History: Cancer Additional Family Medical History / Comment(s): dad 2015 from leukemia Mother Family Medical History: COPD, CVA/TIA Medications and Allergies Home Medications Medication Instructions Recorded Confirmed Type No Known Home Medications [No 01/29/17 01/30/17 History Known Home Medications] Allergies Allergy/AdvReac Type Severity Reaction Status Date / Time No Known Allergies Allergy Verified 01/29/17 21:29 Physical Exam Vitals: Vital Signs Temp Pulse Resp BP Pulse Ox 01/31/17 12:00 95 20 01/31/17 11:21 96.4 F L 96 18 141/83 97 01/31/17 09:27 95 01/31/17 08:50 96 18 01/31/17 08:05 96.5 F L 102 H 18 126/78 95 01/31/17 08:00 18 01/31/17 03:43 99.1 F 100 18 141/82 96 01/31/17 00:00 98.5 F 96 18 136/85 97 01/30/17 20:00 99.6 F 95 18 127/83 94 L 01/30/17 16:26 98 01/30/17 16:00 97.6 F 100 18 149/82 96 Intake and Output 01/30/17 01/31/17 01/31/17 22:59 06:59 14:59 Intake Total 347.057 401.44 210 Output Total 1200 300 Balance 347.057 -798.56 -90 Intake: Intake, IV Titration 347.057 401.44 Amount Heparin Sodium,Porcine/ 347.057 401.44 D5w Pmx 25,000 unit In Dextrose/Water 1 500ml. bag @ 18 UNITS/KG/HR 39.7 mls/hr IV .[id number] [facility] Rx#:[id number] Oral 210 Output: Urine 1200 300 Other: Voiding Method Urinal Urinal Urinal # Voids 1 300 Weight 108.3 kg - Constitutional General appearance: obese - EENT Eyes: EOMI - Neck Neck: normal ROM - Respiratory Respiratory: right: diminished, dullness, prolonged expiration, left: CTA - Cardiovascular Rhythm: regular - Neurologic Neurologic: CNII-XII intact Results CBC & Chem 7: 01/31/17 06:19 01/31/17 06:19 Labs: Abnormal Lab Results - Last 24 Hours (Table) 01/30/17 01/31/17 01/31/17 Range/Units 21:56 06:19 06:19 Hgb 12.5 L (13.0-17.5) gm/dL Hct 38.7 L (39.0-53.0) % APTT 84.4 H 63.1 H (22.0-30.0) sec Glucose (74-99) mg/dL Total Protein (6.3-8.2) g/dL Albumin (3.5-5.0) g/dL Triglycerides (<150) mg/dL HDL Cholesterol (40-60) mg/dL 01/31/17 Range/Units 06:19 Hgb (13.0-17.5) gm/dL Hct (39.0-53.0) % APTT (22.0-30.0) sec Glucose 110 H (74-99) mg/dL Total Protein 6.1 L (6.3-8.2) g/dL Albumin 3.2 L (3.5-5.0) g/dL Triglycerides 179 H (<150) mg/dL HDL Cholesterol 25 L (40-60) mg/dL Assessment and Plan (1) Renal cell carcinoma Status: Acute Plan: Mr. Givens is a 61 year old with a diagnosis of metastatic renal cell caricnoma. He is treatment naive. We discussed palliative radiotherapy specifically to the right clavicular metastasis followed by possible palliative votrient. Mr. Givens is agreeable to the initiation of external beam radiation with plans for simulation on 02/01/17. A discussion of the risks and side effects of treatment was had and Mr. Givens has an appropriate understanding of our plan. We will see him in the department of radiation oncology 02/01/17. He was informed that have he any questions or concerns he can contact our office at any time.
[2017-01-31] MEDS: MORPHINE SULFATE ER 15 MG TABLET PO SCH ×2 (17:09→23:37)
[2017-01-31] MEDS: HEPARIN SODIUM,PORCINE/D5W PMX 25,000 UNIT in DEXTROSE/WATER 1 500ML.BAG IV SCH (18:42)
[2017-02-01] MEDS: HEPARIN SODIUM,PORCINE/D5W PMX 25,000 UNIT in DEXTROSE/WATER 1 500ML.BAG IV SCH ×2 (06:36→13:10)
[2017-02-01 07:06] LABS: INR 1.2 (<1.1); Partial Thromboplastin Time 59.5 sec (22.0-30.0); Prothrombin Time 11.7 sec (9.0-12.0)
[2017-02-01 07:09] LABS: Basophils # (A) 0.1 k/uL (0-0.2); Basophils % (A) 0 %; CH 28.2; CHCM 32.2; Eosinophils # (A) 0.3 k/uL (0-0.7); Eosinophils % (A) 3 %; HCT 37.7 % (39.0-53.0); HDW 2.64; HGB 12.4 gm/dL (13.0-17.5); Luc # (Auto) 0.18; Luc % (Auto) 2; Lymphocytes # (A) 1.4 k/uL (1.0-4.8); Lymphocytes % (A) 14 %; MCH 28.8 pg (25.0-35.0); MCHC 32.8 g/dL (31.0-37.0); MCV 87.6 fL (80.0-100.0); Mean Platelet Volume 6.9; Monocytes # (A) 0.7 k/uL (0-1.0); Monocytes % (A) 6 %; Neutrophils % (A) 75 %; RDW 12.5 % (11.5-15.5); WBC 10.7 k/uL (3.8-10.6); WBC (Perox) 10.76
[2017-02-01 07:29] LABS: ALT 38 U/L (21-72); AST 25 U/L (17-59); Alkaline Phosphatase 79 U/L (38-126); Anion Gap 7 mmol/L; Blood Urea Nitrogen 12 mg/dL (9-20); Calcium 9.8 mg/dL (8.4-10.2); Carbon Dioxide 28 mmol/L (22-30); Chloride 102 mmol/L (98-107); Glucose 111 mg/dL (74-99); Non-African American GFR(MDRD) >60 (>60 ml/min/1.73 sqM); Potassium 4.3 mmol/L (3.5-5.1); Sodium 137 mmol/L (137-145); Total Bilirubin 0.5 mg/dL (0.2-1.3)
[2017-02-01] MEDS: MORPHINE SULFATE ER 15 MG TABLET PO SCH ×2 (08:58→15:57)
[2017-02-01] MEDS: ASPIRIN 325 MG TAB PO SCH (08:59)
[2017-02-01] MEDS: FAMOTIDINE 20 MG TAB PO SCH (09:00)
[2017-02-01] MEDS: DOCUSATE 100 MG CAP PO SCH ×2 (09:00→21:08)
[2017-02-01] MEDS: ALPRAZolam 0.25 MG TAB PO PRN ×3 (09:42→22:01)
[2017-02-01] MEDS: HYDROcodone/APAP 5-325MG 1 EACH TAB PO PRN (09:49)
--- NOTE | 2017-02-01 11:48 | P.PN ---
Subjective Principal diagnosis: Acute pulmonary embolism Patient is feeling better he is complaining of cough complaining of shortness of breath complaining of pain in the right shoulder blade area and complaining of constipation otherwise no complaints at this time. Objective - Vital Signs Vital signs: Vital Signs Temp 96.1 F L 02/01/17 11:23 Pulse 99 02/01/17 11:23 Resp 18 02/01/17 11:23 BP 128/84 02/01/17 11:23 Pulse Ox 100 02/01/17 11:23 Intake & Output 01/31/17 02/01/17 02/01/17 18:59 06:59 18:59 Intake Total 428.56 500 120 Output Total 1100 900 Balance -671.44 -400 120 Weight 108 kg Intake: Intake, IV Titration 98.56 500 Amount Heparin Sodium,Porcine/ 98.56 500 D5w Pmx 25,000 unit In Dextrose/Water 1 500ml. bag @ 18 UNITS/KG/HR 39.7 mls/hr IV .[id number] [facility] Rx#:[id number] Oral 330 120 Output: Urine 1100 900 Other: Voiding Method Urinal Urinal Urinal # Voids 300 1 - Exam HEENT head normocephalic and atraumatic Neck is supple no JVD no goiter no lymphadenopathy Chest exam reveals a few scattered crackles no wheezing Cardiac exam reveals regular heart sounds no gallops no murmurs Abdomen is soft nontender no organomegaly Extremity exam reveals no edema no cyanosis or clubbing - Labs CBC & Chem 7: 02/01/17 05:49 02/01/17 05:49 Labs: Abnormal Lab Results - Last 24 Hours (Table) 02/01/17 02/01/17 02/01/17 Range/Units 05:49 05:49 05:49 WBC 10.7 H (3.8-10.6) k/uL Hgb 12.4 L (13.0-17.5) gm/dL Hct 37.7 L (39.0-53.0) % Neutrophils # 8.0 H (1.3-7.7) k/uL APTT 59.5 H (22.0-30.0) sec Glucose 111 H (74-99) mg/dL Total Protein 6.0 L (6.3-8.2) g/dL Albumin 3.1 L (3.5-5.0) g/dL Assessment and Plan Plan: 1. Acute pulmonary embolism: Patient started on IV heparin. Pulmonary and hematology following. Plan to continue IV heparin until 02/02/17 then switched to Eliquis as recommended by hematology. Lower extremity ultrasound negative for DVT. 2. Metastatic renal cell carcinoma: Oncology following. Patient was following holistic treatment and natural remedies since diagnosis approximately a month ago. He is not a candidate for systemic therapy at this time. Radiation oncology consulted for possible palliative treatment. 3. 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 Cardiology following. EF of 55 -60% 4. Former smoking history 5. Constipation started Colace, at this time will give a dose of lactulose 6. Pain management: I would add extended release morphine 15 mg every 8 hours to his regimen. Continue with the IV morphine as needed. 8. Acute hypoxic respiratory failure secondary to his pulmonary embolism Continue was current management will follow in a.m.
[2017-02-01] MEDS ORDERED: LACTULOSE 20 GM/30 ML CUP PO ONE (11:49)
[2017-02-01] MEDS: guaiFENesin 600 MG TABLET.ER PO SCH ×2 (12:22→21:08)
--- NOTE | 2017-02-01 14:04 | P.PN ---
Subjective Progress note dated 02/01/2017 This is a 61-year-old male with a history of widely metastatic hypernephroma. The patient was admitted with a possible diagnosis of pulmonary embolism. After I saw him yesterday examination he looked to his scans and labs, I thought may be a tumor embolism syndrome. Anyway regardless, he is currently on IV heparin. The patient's feeling a bit better today. His breathing is improved. His disease throughout his body including the right forehead right shoulder and lung. Anyway I thought that he should have a palliative care consult release a referral to hospice. I'm not sure where he sat in that process. I did see his daughter talking to the hospice individual yesterday. Again he looks a bit better today. Apparently still be started on a factor X inhibitor tomorrow. Objective - Vital Signs Vital signs: Vital Signs Temp 96.1 F L 02/01/17 11:23 Pulse 99 02/01/17 11:23 Resp 18 02/01/17 11:23 BP 128/84 02/01/17 11:23 Pulse Ox 100 02/01/17 11:23 Intake & Output 01/31/17 02/01/17 02/01/17 18:59 06:59 18:59 Intake Total 428.56 500 943.305 Output Total 1100 900 Balance -671.44 -400 943.305 Weight 108 kg Intake: Intake, IV Titration 98.56 500 343.305 Amount Heparin Sodium,Porcine/ 98.56 500 343.305 D5w Pmx 25,000 unit In Dextrose/Water 1 500ml. bag @ 18 UNITS/KG/HR 39.7 mls/hr IV .[id number] [facility] Rx#:[id number] Oral 330 600 Output: Urine 1100 900 Other: Voiding Method Urinal Urinal Urinal # Voids 300 1 - Exam No acute distress, oriented 3. Sleeping when we first came in. HEENT examination is grossly unremarkable. Neck supple. Full range of motion. No adenopathy. Cardiovascular examination reveals regular rhythm rate. S1-S2 normal. No S3- S4 murmur. Lungs reveal relatively clear breath sounds. A few scattered rhonchi. No wheezes. No crackles. Breast examination: The abdomen extremities are normal. - Labs CBC & Chem 7: 02/01/17 05:49 02/01/17 05:49 Labs: Abnormal Lab Results - Last 24 Hours (Table) 02/01/17 02/01/17 02/01/17 Range/Units 05:49 05:49 05:49 WBC 10.7 H (3.8-10.6) k/uL Hgb 12.4 L (13.0-17.5) gm/dL Hct 37.7 L (39.0-53.0) % Neutrophils # 8.0 H (1.3-7.7) k/uL APTT 59.5 H (22.0-30.0) sec Glucose 111 H (74-99) mg/dL Total Protein 6.0 L (6.3-8.2) g/dL Albumin 3.1 L (3.5-5.0) g/dL Assessment and Plan (1) Acute pulmonary embolism Status: Acute (2) Cancer related pain Status: Acute (3) Hypoxia Status: Acute (4) Metastatic carcinoma Status: Acute (5) Renal cell carcinoma Status: Acute Plan: Plan The patient's a pulmonary embolism may actually represent tumor emboli. I'm not sure that I really see much of a pulmonary embolism in the left lower lobe left lower lobe pulmonary artery. Anyway, as mentioned previously, he has more than enough disease in the right chest explain his shortness of breath. I would be inclined to be more conservative with this gentleman and off for him hospice consultation and/or palliative care consultation. Should he be started on blood thinners, he will need lifelong anticoagulation. No additional recommendations are made. Prognosis is very poor. Plan dated 02/01/2017 From the pulmonary standpoint patient seems reasonably stable. He has a history of possible acute pulmonary embolism, versus tumor embolism syndrome. He also suffers from widely metastatic hypernephroma. Apparently hospice will come today to speak to the patient. Additional recommendations suggestions are forthcoming. He is currently in IV heparin. We switched to a factor X a inhibitor tomorrow. Discharge hopefully soon. If he is maintained on the blood thinner, should be lifelong. Time with Patient: Less than 30
--- NOTE | 2017-02-01 18:58 | P.PN ---
Subjective Pt is somewhat improved,but still SOB. Objective - Vital Signs Vital signs: Vital Signs Temp 98.5 F 02/01/17 16:00 Pulse 95 02/01/17 16:00 Resp 20 02/01/17 16:00 BP 126/97 02/01/17 16:00 Pulse Ox 97 02/01/17 16:00 Intake & Output 01/31/17 02/01/17 02/01/17 18:59 06:59 18:59 Intake Total 428.56 500 1855.305 Output Total 1100 900 950 Balance -671.44 -400 905.305 Weight 108 kg Intake: IV 912 Heparin Sodium,Porcine/ 312 D5w Pmx 25,000 unit In Dextrose/Water 1 500ml. bag @ 18 UNITS/KG/HR 39.7 mls/hr IV .[id number] [facility] Rx#:[id number] Sodium Chloride 0.9% 1, 600 000 ml @ 100 mls/hr Intake, IV Titration 98.56 500 343.305 Amount Heparin Sodium,Porcine/ 98.56 500 343.305 D5w Pmx 25,000 unit In Dextrose/Water 1 500ml. bag @ 18 UNITS/KG/HR 39.7 mls/hr IV .[id number] [facility] Rx#:[id number] Oral 330 600 Output: Urine 1100 900 950 Other: Voiding Method Urinal Urinal Urinal # Voids 300 1 - Constitutional General appearance: Present: mild distress - EENT Eyes: Present: EOMI, PERRLA ENT: Present: hearing grossly normal, normal oropharynx - Respiratory Respiratory: right: diminished (lower half of lung.) - Cardiovascular Rhythm: regular Heart sounds: normal: S1, S2 - Gastrointestinal General gastrointestinal: Present: normal bowel sounds, soft - Integumentary Integumentary: Present: normal - Neurologic Neurologic: Present: CNII-XII intact - Musculoskeletal Musculoskeletal: Present: generalized weakness - Additional findings Additional findings: nodular metastasis on scalp, right shoulder - Labs CBC & Chem 7: 02/01/17 05:49 02/01/17 05:49 Labs: Abnormal Lab Results - Last 24 Hours (Table) 02/01/17 02/01/17 02/01/17 Range/Units 05:49 05:49 05:49 WBC 10.7 H (3.8-10.6) k/uL Hgb 12.4 L (13.0-17.5) gm/dL Hct 37.7 L (39.0-53.0) % Neutrophils # 8.0 H (1.3-7.7) k/uL APTT 59.5 H (22.0-30.0) sec Glucose 111 H (74-99) mg/dL Total Protein 6.0 L (6.3-8.2) g/dL Albumin 3.1 L (3.5-5.0) g/dL Assessment and Plan (1) Acute pulmonary embolism Narrative/Plan: the patient's CTA was read as pulmonary emboli in the distal arteries. Tumor emboli are also possible, but the distinction essentially impossible. The patient is at risk for PE because of his widespread metastatic cancer. Therefore it would be reasonable to and regulate him, in my opinion. The patient is currently on IV heparin, with plans to transition to direct factor inhibitor. If we treat him for a 0 PE, he will need prolonged anticoagulation since the cause of the PE is the cancer, which is not curable. Status: Acute (2) Dyspnea Narrative/Plan: the patient continues to be quite short of breath despite some improvement. The thrombi on CTA, were small and distal. Therefore the majority of his dyspnea is most likely due to the pleural effusion. I will consult the invasive radiology, to do a thoracentesis. Since the procedure is planned, I would recommend continuing heparin, as that can be stopped about 2-4 hours prior to the procedure. I would hold off on starting the direct factor inhibitor, because of a longer duration of action, till the procedure is completed Status: Acute (3) Renal cell carcinoma Narrative/Plan: the patient has widely metastatic disease is noted. He was having increasing pain in the right shoulder, and is now agreeable to palliative radiation. He did start radiation today. For systemic therapy I had recommended Votrient. The same was also recommended by the [facility], during his consult there. Apparently the patient and daughter, have met with Palliative care. The patient clarified to me that he DOES desire active treatment at this point. Therefore for now he is not a hospice candidate. She can continue symptom management with palliative care, while also having active treatment for his cancer, depending on his performance status. The purpose of cancer treatment in his situation is prolonged resolution of life and palliation of symptoms. In my opinion, Votrient is a reasonable option for him as it is overall and generally well tolerated. The patient states that he is inclined for that, but has not decided definitely yet. He wants to see how she will feel with the radiation and thoracentesis, and then decide if he wants to start the Votrient Status: Acute
[2017-02-02] MEDS: MORPHINE SULFATE ER 15 MG TABLET PO SCH ×4 (00:08→23:37)
[2017-02-02] MEDS: FLUTICASONE 50MCG/SPRAY NASAL 16GM EA NOSTRIL PRN ×2 (00:57→22:16)
[2017-02-02] MEDS: MORPHINE SULFATE 4 MG/ML SYRINGE IV PRN ×2 (03:35→11:25)
[2017-02-02] MEDS: ALPRAZolam 0.25 MG TAB PO PRN ×3 (03:51→23:37)
[2017-02-02 06:51] LABS: Basophils # (A) 0.1 k/uL (0-0.2); Basophils % (A) 1 %; CHCM 32.2; Eosinophils # (A) 0.4 k/uL (0-0.7); Eosinophils % (A) 3 %; HCT 38.6 % (39.0-53.0); HDW 2.69; HGB 12.8 gm/dL (13.0-17.5); Luc # (Auto) 0.31; Luc % (Auto) 2; Lymphocytes # (A) 1.6 k/uL (1.0-4.8); Lymphocytes % (A) 11 %; MCH 28.9 pg (25.0-35.0); MCHC 33.1 g/dL (31.0-37.0); MCV 87.2 fL (80.0-100.0); Mean Platelet Volume 7.4; Monocytes # (A) 0.9 k/uL (0-1.0); Monocytes % (A) 7 %; Neutrophils # (A) 10.6 k/uL (1.3-7.7); Neutrophils % (A) 76 %; RBC 4.42 m/uL (4.30-5.90); RDW 12.6 % (11.5-15.5); WBC 13.9 k/uL (3.8-10.6); WBC (Perox) 14.22
[2017-02-02 07:06] LABS: INR 1.2 (<1.1); Partial Thromboplastin Time 46.8 sec (22.0-30.0)
[2017-02-02] MEDS ORDERED: RIVAROXABAN 15 MG TAB PO SCH (07:30)
[2017-02-02 07:43] LABS: ALT 47 U/L (21-72); AST 35 U/L (17-59); Alkaline Phosphatase 94 U/L (38-126); Anion Gap 9 mmol/L; Blood Urea Nitrogen 9 mg/dL (9-20); Calcium 10.2 mg/dL (8.4-10.2); Carbon Dioxide 28 mmol/L (22-30); Chloride 101 mmol/L (98-107); Glucose 114 mg/dL (74-99); Non-African American GFR(MDRD) >60 (>60 ml/min/1.73 sqM); Sodium 138 mmol/L (137-145); Total Bilirubin 0.7 mg/dL (0.2-1.3); Total Protein 6.4 g/dL (6.3-8.2)
[2017-02-02] MEDS ORDERED: APIXABAN 5 MG TAB PO SCH (09:00)
[2017-02-02] MEDS: DOCUSATE 100 MG CAP PO SCH ×2 (09:23→20:57)
[2017-02-02] MEDS: FAMOTIDINE 20 MG TAB PO SCH (09:23)
[2017-02-02] MEDS: guaiFENesin 600 MG TABLET.ER PO SCH ×2 (09:25→20:57)
[2017-02-02] MEDS: HEPARIN SODIUM,PORCINE/D5W PMX 25,000 UNIT in DEXTROSE/WATER 1 500ML.BAG IV SCH ×3 (11:01→23:08)
[2017-02-02] MEDS ORDERED: IPRATROPIUM-ALBUTEROL 3 ML NEB INHALATION PRN (11:01)
--- NOTE | 2017-02-02 11:01 | P.PN ---
Subjective Progress note dated 02/01/2017 This is a 61-year-old male with a history of widely metastatic hypernephroma. The patient was admitted with a possible diagnosis of pulmonary embolism. After I saw him yesterday examination he looked to his scans and labs, I thought may be a tumor embolism syndrome. Anyway regardless, he is currently on IV heparin. The patient's feeling a bit better today. His breathing is improved. His disease throughout his body including the right forehead right shoulder and lung. Anyway I thought that he should have a palliative care consult release a referral to hospice. I'm not sure where he sat in that process. I did see his daughter talking to the hospice individual yesterday. Again he looks a bit better today. Apparently still be started on a factor X inhibitor tomorrow. Progress note dated 02/02/2017 61-year-old male with a history of widely metastatic hypernephroma. The patient was admitted with a possible diagnosis of pulmonary most him. Myself and my nurse practitioner looked at the CT angiogram were not impressed and I thought if he had pulmonary embolism it was really more tumor embolism syndrome. I do not think he really had a significant blood clot and certainly not large enough blood clots explain his respiratory issues. He does have a lot of disease in the right chest including pleural fluid. Interventional radiology was asked to do a drainage procedure on him today. I think just appropriate. Anyway there was a consult made to hospice. His breathing is worse today. I did speak to his daughter. His in bed. Using oxygen therapy. We'll be stacked started on a factor X a inhibitor today I believe her tomorrow. Other than that doing about the same. Objective - Vital Signs Vital signs: Vital Signs Temp 97.1 F L 02/02/17 08:06 Pulse 110 H 02/02/17 08:06 Resp 16 02/02/17 08:06 BP 117/79 02/02/17 08:06 Pulse Ox 95 02/02/17 08:06 Intake & Output 02/01/17 02/02/17 02/02/17 18:59 06:59 18:59 Intake Total 1855.305 600 Output Total 950 1200 Balance 905.305 -600 Weight 109.3 kg Intake: IV 912 Heparin Sodium,Porcine/ 312 D5w Pmx 25,000 unit In Dextrose/Water 1 500ml. bag @ 18 UNITS/KG/HR 39.7 mls/hr IV .[id number] [facility] Rx#:[id number] Sodium Chloride 0.9% 1, 600 000 ml @ 100 mls/hr Intake, IV Titration 343.305 Amount Heparin Sodium,Porcine/ 343.305 D5w Pmx 25,000 unit In Dextrose/Water 1 500ml. bag @ 18 UNITS/KG/HR 39.7 mls/hr IV .[id number] [facility] Rx#:[id number] Oral 600 600 Output: Urine 950 1200 Other: Voiding Method Urinal Urinal Urinal - Exam No acute distress, oriented 3. Sleeping when we first came in. HEENT examination is grossly unremarkable.he is a large lesion in his right forehead area consistent with metastatic hypernephroma Neck supple. Full range of motion. No adenopathy. Cardiovascular examination reveals regular rhythm rate. S1-S2 normal. No S3- S4 murmur. Lungs reveal relatively clear breath sounds. A few scattered rhonchi. No wheezes. No crackles. His abdominal examination is unremarkable. Extremities are intact. - Labs CBC & Chem 7: 02/02/17 06:11 02/02/17 06:11 Labs: Abnormal Lab Results - Last 24 Hours (Table) 02/02/17 02/02/17 02/02/17 Range/Units 06:11 06:11 06:11 WBC 13.9 H (3.8-10.6) k/uL Hgb 12.8 L (13.0-17.5) gm/dL Hct 38.6 L (39.0-53.0) % Neutrophils # 10.6 H (1.3-7.7) k/uL APTT 46.8 H (22.0-30.0) sec Glucose 114 H (74-99) mg/dL Albumin 3.3 L (3.5-5.0) g/dL Assessment and Plan (1) Acute pulmonary embolism Status: Acute (2) Cancer related pain Status: Acute (3) Hypoxia Status: Acute (4) Metastatic carcinoma Status: Acute (5) Renal cell carcinoma Status: Acute Plan: Plan The patient's a pulmonary embolism may actually represent tumor emboli. I'm not sure that I really see much of a pulmonary embolism in the left lower lobe left lower lobe pulmonary artery. Anyway, as mentioned previously, he has more than enough disease in the right chest explain his shortness of breath. I would be inclined to be more conservative with this gentleman and off for him hospice consultation and/or palliative care consultation. Should he be started on blood thinners, he will need lifelong anticoagulation. No additional recommendations are made. Prognosis is very poor. Plan dated 02/01/2017 From the pulmonary standpoint patient seems reasonably stable. He has a history of possible acute pulmonary embolism, versus tumor embolism syndrome. He also suffers from widely metastatic hypernephroma. Apparently hospice will come today to speak to the patient. Additional recommendations suggestions are forthcoming. He is currently in IV heparin. We switched to a factor X a inhibitor tomorrow. Discharge hopefully soon. If he is maintained on the blood thinner, should be lifelong. Plan dated 02/02/2017 Agree with thoracentesis done by interventional radiology. 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 He does have widely metastatic hypernephroma. His overall prognosis is poor. Additional recommendations suggestions are forthcoming. We' ll continue to follow. Meds labs and x-rays are reviewed. Time with Patient: Less than 30
--- NOTE | 2017-02-02 11:20 | P.PN ---
Subjective Patient having shortness of breath. He is scheduled for thoracentesis today. Currently on IV heparin. Also complaining of constipation. No BM after lactulose. Soapsuds enema ordered. Patient denies any chest pain. Denies any nausea or vomiting. Denies any difficulty urinating. Objective - Vital Signs Vital signs: Vital Signs Temp 97.1 F L 02/02/17 08:06 Pulse 110 H 02/02/17 08:06 Resp 16 02/02/17 08:06 BP 117/79 02/02/17 08:06 Pulse Ox 95 02/02/17 08:06 Intake & Output 02/01/17 02/02/17 02/02/17 18:59 06:59 18:59 Intake Total 1855.305 600 Output Total 950 1200 Balance 905.305 -600 Weight 109.3 kg Intake: IV 912 Heparin Sodium,Porcine/ 312 D5w Pmx 25,000 unit In Dextrose/Water 1 500ml. bag @ 18 UNITS/KG/HR 39.7 mls/hr IV .[id number] [facility] Rx#:[id number] Sodium Chloride 0.9% 1, 600 000 ml @ 100 mls/hr Intake, IV Titration 343.305 Amount Heparin Sodium,Porcine/ 343.305 D5w Pmx 25,000 unit In Dextrose/Water 1 500ml. bag @ 18 UNITS/KG/HR 39.7 mls/hr IV .[id number] [facility] Rx#:[id number] Oral 600 600 Output: Urine 950 1200 Other: Voiding Method Urinal Urinal Urinal - Exam Head normocephalic Neck supple Lungs diminished on the right Heart regular rate and rhythm S1-S2, no rub or gallop Abdomen is soft nontender nondistended positive bowel sounds no hepatosplenomegaly Extremities no edema Neuro alert and orientated to 3 - Labs CBC & Chem 7: 02/02/17 06:11 02/02/17 06:11 Labs: Abnormal Lab Results - Last 24 Hours (Table) 02/02/17 02/02/17 02/02/17 Range/Units 06:11 06:11 06:11 WBC 13.9 H (3.8-10.6) k/uL Hgb 12.8 L (13.0-17.5) gm/dL Hct 38.6 L (39.0-53.0) % Neutrophils # 10.6 H (1.3-7.7) k/uL APTT 46.8 H (22.0-30.0) sec Glucose 114 H (74-99) mg/dL Albumin 3.3 L (3.5-5.0) g/dL Assessment and Plan Plan: 1. Acute pulmonary embolism: Currently on IV heparin. Pulmonary and hematology following. 2. Renal cell carcinoma with metastatic disease: Oncology following. Patient started radiation treatment. Patient was following holistic treatment and natural remedies since diagnosis approximately a month ago. 3. 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 Cardiology following. EF of 55 -60% 4. Former smoking history 5. Constipation : We'll give us a soapsuds enema 6. Pain management: Continue morphine 15 mg every 8 hours and IV morphine as needed 8. Acute hypoxic respiratory failure secondary to his pulmonary embolism 9. Right-sided pleural effusion: Scheduled for thoracentesis today. GI prophylaxis Pepcid and DVT prophylaxis IV heparin
--- NOTE | 2017-02-02 13:03 | CDI ---
In responding to this query, please exercise your independent professional judgment. The [facility] Coding Staff and Clinical Documentation Specialists appreciate your assistance in clarifying documentation, maintaining compliance with coding guidelines, accurately documenting patients condition and capturing severity of illness. The fact that a question is asked does not imply that any particular answer is desired or expected. Communication forms are a method of clarifying documentation and are not made part of the Legal Health Record. Thank you in advance for your clarification. Last Revision, September 2015 Guicho Scott [address] [place] [address] Documentation Clarification Form Date: 02/02/2017 12:26:00 PM From: Simone Conley, RN, BSN, CDI Admit Date: 01/30/2017 12:34:00 AM Patient Name: Ever Givens Visit Number: [id number] Dr. Berenice Sosa: Presenting symptoms: Patient presents for evaluation of right upper chest pain and shortness of breath for 2 days. His pain is right-sided and worse with movement. Patient history/risk factors: The patient has a recent diagnosis of renal cell cancer with multiple areas of metastasis. He has not been treated for the cancer but has chosen a more holistic approach. Clinical Indicators: Radiology findings: CTA chest: possible filling defect seen w/in the posterior and lateral segments of the LLL suggestive of acute PE, there is a mass involving the right scapular spine, right upper lobe alveolar opacity which may represent new lung mass and new large right pleural effusion. Initial Vital Signs (done in ED): 136/79, 120, 20, 98.5, 92% RA (does drop to high 80's on RA). Treatment: Heparin drip, palliative radiotherapy specifically to the right clavicular metastasis followed by possible palliative Votrient, thoracentesis scheduled for today, Arco, Xanax, Morphine and MS Contin. Hospice has been consulted. per pulmonary note on 02/02: "looked at CTA lung, not to impressed w/PE- it was really more tumor embolism syndrome. Do not think he really had a significant blood clot and certainly not large enough to explain his respiratory issues-he does have a lot of disease in his right chest" The patients principal diagnosis has not been clearly identified and requires clarification. In your professional opinion, can you please clarify which diagnosis(es), after study, accounted for the patients presenting symptoms and was the reason chiefly responsible for the admission? Right sided chest pain and shortness of breath possibly secondary to: -Acute PE -Bony metastatic lesions (right shoulder) -Tumor emboli -Large right pleural effusion -Multifactorial (please document all possible diagnosis(es) that could have contributed to the patient's symptoms): -Unable to determine -Other, please specify: Please document in your progress notes and discharge summary in order to capture severity of illness and risk of mortality. Include clinical findings that support your diagnosis. FYI: Press F11 to launch patient chart. Place X here if this finding has no clinical significance, is not applicable or if you are not able to provide any additional documentation. ROGELIO
--- NOTE | 2017-02-02 15:06 | XR ---
EXAMINATION TYPE: XR chest 1V portable DATE OF EXAM: 02/02/2017 2:54 PM HISTORY: right thoracentesis. REFERENCE: NONE. FINDINGS: There is a large right pleural effusion. I do not see evidence of pneumothorax. There is va scular congestion and mild interstitial change. Heart size is obscured. IMPRESSION: 1. I DO NOT SEE A POSTTHORACENTESIS COMPLICATION. 2. CHANGES CONSISTENT WITH CONGESTIVE HEART FAILURE.
--- NOTE | 2017-02-02 15:56 | US ---
Ultrasound-guided therapeutic and diagnostic thoracentesis CLINICAL HISTORY: Large right pleural effusion The procedure was discussed with the patient. The risks, complications, benefits, and alternatives we re discussed and any questions were answered. Informed consent was obtained. The patient was placed s upine on the ultrasound table and prepped and draped in the usual sterile fashion. All elements of maximal barrier technique were utilized. Under ultrasound guidance, access into the pleural space was obtained, via the thoracentesis catheter system and direct ultrasound guidance. Approximately 1.5 liters of serous fluid was removed. Sample sent to pathology. The patient was stable throughout the procedure and remained stable upon discharge from Department of Radiology. IMPRESSION: Successful therapeutic and diagnostic thoracentesis under ultrasound guidance.
[2017-02-02 17:45] LABS: RBC, Body Fluid 357000 /uL
[2017-02-02] MEDS: IPRATROPIUM-ALBUTEROL 3 ML NEB INHALATION SCH ×2 (18:26→20:27)
[2017-02-02] MEDS: HYDROcodone/APAP 5-325MG 1 EACH TAB PO PRN (21:58)
[2017-02-03 06:36] LABS: Basophils % (A) 0 %; CH 28.2; CHCM 32.5; Eosinophils # (A) 0.3 k/uL (0-0.7); Eosinophils % (A) 3 %; HCT 36.2 % (39.0-53.0); HDW 2.65; HGB 11.7 gm/dL (13.0-17.5); Luc # (Auto) 0.27; Luc % (Auto) 3; Lymphocytes # (A) 1.4 k/uL (1.0-4.8); Lymphocytes % (A) 13 %; MCH 28.1 pg (25.0-35.0); MCHC 32.3 g/dL (31.0-37.0); Mean Platelet Volume 6.7; Monocytes # (A) 0.8 k/uL (0-1.0); Monocytes % (A) 7 %; Neutrophils # (A) 7.7 k/uL (1.3-7.7); Neutrophils % (A) 74 %; RBC 4.16 m/uL (4.30-5.90); RDW 12.7 % (11.5-15.5); WBC 10.5 k/uL (3.8-10.6); WBC (Perox) 10.39
[2017-02-03 06:50] LABS: INR 1.2 (<1.1); Partial Thromboplastin Time 45.1 sec (22.0-30.0); Prothrombin Time 11.9 sec (9.0-12.0)
[2017-02-03] MEDS: IPRATROPIUM-ALBUTEROL 3 ML NEB INHALATION SCH ×3 (08:38→20:43)
[2017-02-03] MEDS: MORPHINE SULFATE ER 15 MG TABLET PO SCH ×2 (08:54→16:30)
[2017-02-03] MEDS: guaiFENesin 600 MG TABLET.ER PO SCH ×2 (08:55→21:05)
[2017-02-03] MEDS: DOCUSATE 100 MG CAP PO SCH ×2 (08:55→21:05)
[2017-02-03] MEDS: FAMOTIDINE 20 MG TAB PO SCH (08:55)
[2017-02-03] MEDS: RIVAROXABAN 15 MG TAB PO SCH ×3 (11:47→13:06)
[2017-02-03] MEDS ORDERED: HEPARIN SODIUM,PORCINE 5,000 UNIT/ML 1 ML VIAL IV PRN ×2 (12:07→13:07)
[2017-02-03] MEDS ORDERED: HEPARIN SODIUM,PORCINE/D5W PMX 25,000 UNIT in DEXTROSE/WATER 1 500ML.BAG IV SCH (12:15)
--- NOTE | 2017-02-03 12:16 | P.PN ---
Subjective Progress note dated 02/01/2017 This is a 61-year-old male with a history of widely metastatic hypernephroma. The patient was admitted with a possible diagnosis of pulmonary embolism. After I saw him yesterday examination he looked to his scans and labs, I thought may be a tumor embolism syndrome. Anyway regardless, he is currently on IV heparin. The patient's feeling a bit better today. His breathing is improved. His disease throughout his body including the right forehead right shoulder and lung. Anyway I thought that he should have a palliative care consult release a referral to hospice. I'm not sure where he sat in that process. I did see his daughter talking to the hospice individual yesterday. Again he looks a bit better today. Apparently still be started on a factor X inhibitor tomorrow. Progress note dated 02/02/2017 61-year-old male with a history of widely metastatic hypernephroma. The patient was admitted with a possible diagnosis of pulmonary most him. Myself and my nurse practitioner looked at the CT angiogram were not impressed and I thought if he had pulmonary embolism it was really more tumor embolism syndrome. I do not think he really had a significant blood clot and certainly not large enough blood clots explain his respiratory issues. He does have a lot of disease in the right chest including pleural fluid. Interventional radiology was asked to do a drainage procedure on him today. I think just appropriate. Anyway there was a consult made to hospice. His breathing is worse today. I did speak to his daughter. His in bed. Using oxygen therapy. We'll be stacked started on a factor X a inhibitor today I believe her tomorrow. The patient is seen again today 02/03/2017 in follow-up on the selective care unit. He is awake and alert in no acute distress. He has been started on radiation treatments to the right scapular region and his pain feels improved today as compared to yesterday. Interventional radiology did remove 1.5 L of fluid from the right chest. Today's chest x-ray shows continued fluid there. Still requiring 4 L of high flow nasal cannula to maintain O2 saturations in the 90s. He is currently afebrile. Slightly tachycardic. No worsening shortness of breath. Objective - Vital Signs Vital signs: Vital Signs Temp 97.3 F L 02/03/17 08:00 Pulse 100 02/03/17 08:49 Resp 22 02/03/17 08:00 BP 127/75 02/03/17 08:00 Pulse Ox 94 L 02/03/17 08:00 Intake & Output 02/02/17 02/03/17 02/03/17 18:59 06:59 18:59 Intake Total 1356 2745.316 100 Output Total 550 2040 Balance 806 705.316 100 Weight 108 kg Intake: IV 706 1370.7 Heparin Sodium,Porcine/ 206 470.7 D5w Pmx 25,000 unit In Dextrose/Water 1 500ml. bag @ 18 UNITS/KG/HR 39.7 mls/hr IV .[id number] DARRIN Rx#:[id number] Sodium Chloride 0.9% 1, 500 900 000 ml @ 100 mls/hr Intake, IV Titration 774.616 Amount Heparin Sodium,Porcine/ 774.616 D5w Pmx 25,000 unit In Dextrose/Water 1 500ml. bag @ 18 UNITS/KG/HR 39.7 mls/hr IV .[id number] DARRIN Rx#:[id number] Oral 650 600 100 Output: Urine 550 2040 Other: Voiding Method Urinal Urinal Urinal # Voids 1 - Exam GENERAL EXAM: Alert, comfortable in no apparent distress. HEAD: Normocephalic. EYES: Normal reaction of pupils, equal size. NOSE: Clear with pink turbinates. THROAT: No erythema or exudates. NECK: No masses, no JVD. CHEST: No chest wall deformity. LUNGS: Equal air entry with crackles bilaterally more so on the right lung. CVS: S1 and S2 normal with no audible murmurs, regular rhythm. ABDOMEN: No hepatosplenomegaly, normal bowel sounds, no guarding or rigidity. Extremities: There is no significant peripheral edema. No clubbing, no cyanosis. Peripheral pulses are intact. - Labs CBC & Chem 7: 02/03/17 06:11 02/02/17 06:11 Labs: Abnormal Lab Results - Last 24 Hours (Table) 02/03/17 02/03/17 Range/Units 06:11 06:11 RBC 4.16 L (4.30-5.90) m/uL Hgb 11.7 L (13.0-17.5) gm/dL Hct 36.2 L (39.0-53.0) % APTT 45.1 H (22.0-30.0) sec Microbiology - Last 24 Hours (Table) 02/02/17 14:15 Gram Stain - Preliminary Pleural Fluid Body Fluid Culture - Preliminary Assessment and Plan Plan: Impression: #1 Pulmonary embolism or perhaps tumor emboli. #2 Large right-sided pleural effusion status post thoracentesis with 1.5 L of serous fluid removed. Pathology is pending. #3 Acute hypoxic respiratory failure secondary to above. #4 Metastatic renal cell carcinoma. Plan: The patient was seen and evaluated by Dr. Guerrero. We feel the pleural effusion will continue to be recurrent secondary to the metastatic disease. We have asked cardiothoracic surgeons to place a Pleurx catheter prior to the patient's discharge. They are in agreement and will plan on the procedure tomorrow. In the interim we'll continue with his current medications. He'll continue with radiation therapy as scheduled. He is considering Votrient therapy as well. We 'll continue to follow up
[2017-02-03] MEDS: HEPARIN SODIUM,PORCINE/D5W PMX 25,000 UNIT in DEXTROSE/WATER 1 500ML.BAG IV SCH (13:19)
--- NOTE | 2017-02-03 13:19 | P.PN ---
Subjective Pulmonary embolism Patient's shortness of breath has shown some improvement. He did have the right sided thoracentesis with 1.5 L removed. He denies any chest pain. Denies any nausea or vomiting. Did have a bowel movement yesterday. Denies any difficulty urinating. Pulmonary service has consulted cardiothoracic surgery for a Pleurx catheter for possible reoccurrence of pleural effusion. Patient lost IV access today. Objective - Vital Signs Vital signs: Vital Signs Temp 97.4 F L 02/03/17 12:00 Pulse 106 H 02/03/17 12:00 Resp 20 02/03/17 12:00 BP 129/74 02/03/17 12:00 Pulse Ox 95 02/03/17 12:00 Intake & Output 02/02/17 02/03/17 02/03/17 18:59 06:59 18:59 Intake Total 1356 2745.316 100 Output Total 550 2040 Balance 806 705.316 100 Weight 108 kg Intake: IV 706 1370.7 Heparin Sodium,Porcine/ 206 470.7 D5w Pmx 25,000 unit In Dextrose/Water 1 500ml. bag @ 18 UNITS/KG/HR 39.7 mls/hr IV .[id number] DARRIN Rx#:[id number] Sodium Chloride 0.9% 1, 500 900 000 ml @ 100 mls/hr Intake, IV Titration 774.616 Amount Heparin Sodium,Porcine/ 774.616 D5w Pmx 25,000 unit In Dextrose/Water 1 500ml. bag @ 18 UNITS/KG/HR 39.7 mls/hr IV .[id number] DARRIN Rx#:[id number] Oral 650 600 100 Output: Urine 550 2040 Other: Voiding Method Urinal Urinal Urinal # Voids 1 - Exam Head normocephalic Neck supple Lungs improvement in air movement Heart regular rate and rhythm S1-S2, no rub or gallop Abdomen is soft nontender nondistended positive bowel sounds no hepatosplenomegaly Extremities no edema Neuro alert and orientated to 3 - Labs CBC & Chem 7: 02/03/17 06:11 02/02/17 06:11 Labs: Abnormal Lab Results - Last 24 Hours (Table) 02/03/17 02/03/17 Range/Units 06:11 06:11 RBC 4.16 L (4.30-5.90) m/uL Hgb 11.7 L (13.0-17.5) gm/dL Hct 36.2 L (39.0-53.0) % APTT 45.1 H (22.0-30.0) sec Microbiology - Last 24 Hours (Table) 02/02/17 14:15 Gram Stain - Preliminary Pleural Fluid Body Fluid Culture - Preliminary Assessment and Plan Plan: 1. Acute pulmonary embolism or possible tumor emboli. Patient is followed by both pulmonary and hematology. IV heparin discontinued and patient started on Xarelto. Patient's insurance does cover the Xarelto 2. Renal cell carcinoma with metastatic disease: Oncology following. Patient started palliative radiation treatment. Patient scheduled for radiation treatment again tonight. He is considering Votrient therapy. Patient was following holistic treatment and natural remedies since diagnosis approximately a month ago. 3. 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 Cardiology following. EF of 55 -60% 4. Former smoking history 5. Constipation : Improved after soapsuds 6. Pain management: Continue morphine 15 mg every 8 hours and IV morphine as needed 8. Acute hypoxic respiratory failure secondary to his pulmonary embolism 9. Right-sided pleural effusion: Status post thoracentesis with 1.5 L removed. Pulmonary service recommendations noted they've asked cardiothoracic surgery to evaluate patient for possible Pleurx catheter. They're planning to proceed with procedure tomorrow Consult physical therapy Discharge plan: Patient is to go home with home care when discharged. GI prophylaxis Pepcid and DVT prophylaxis Xarelto
--- NOTE | 2017-02-03 15:22 | P.PN ---
Subjective Principal diagnosis: STU, PE, metastatic renal cell carcinoma Pt seen today s/p 1.5L thoracentesis, his breathing is better. He remains on heparin drip at this time for PE, denies any bleeding. Objective - Vital Signs Vital signs: Vital Signs Temp 97.4 F L 02/03/17 12:00 Pulse 106 H 02/03/17 12:00 Resp 20 02/03/17 12:00 BP 129/74 02/03/17 12:00 Pulse Ox 95 02/03/17 12:00 Intake & Output 02/02/17 02/03/17 02/03/17 18:59 06:59 18:59 Intake Total 1356 2745.316 100 Output Total 550 2040 Balance 806 705.316 100 Weight 108 kg Intake: IV 706 1370.7 Heparin Sodium,Porcine/ 206 470.7 D5w Pmx 25,000 unit In Dextrose/Water 1 500ml. bag @ 18 UNITS/KG/HR 39.7 mls/hr IV .[id number] DARRIN Rx#:[id number] Sodium Chloride 0.9% 1, 500 900 000 ml @ 100 mls/hr Intake, IV Titration 774.616 Amount Heparin Sodium,Porcine/ 774.616 D5w Pmx 25,000 unit In Dextrose/Water 1 500ml. bag @ 18 UNITS/KG/HR 39.7 mls/hr IV .[id number] DARRIN Rx#:[id number] Oral 650 600 100 Output: Urine 550 2040 Other: Voiding Method Urinal Urinal Urinal # Voids 1 - Constitutional General appearance: Present: cooperative, no acute distress, obese - Respiratory Respiratory: bilateral: CTA - Cardiovascular Heart sounds: normal: S1, S2 - Gastrointestinal General gastrointestinal: Present: soft - Integumentary Integumentary: Present: normal - Neurologic Neurologic: Present: CNII-XII intact - Musculoskeletal Musculoskeletal: Present: strength equal bilaterally - Psychiatric Psychiatric: Present: A&O x's 3, appropriate affect, intact judgment & insight - Labs CBC & Chem 7: 02/03/17 06:11 02/02/17 06:11 Labs: Abnormal Lab Results - Last 24 Hours (Table) 02/03/17 02/03/17 Range/Units 06:11 06:11 RBC 4.16 L (4.30-5.90) m/uL Hgb 11.7 L (13.0-17.5) gm/dL Hct 36.2 L (39.0-53.0) % APTT 45.1 H (22.0-30.0) sec Microbiology - Last 24 Hours (Table) 02/02/17 14:15 Gram Stain - Preliminary Pleural Fluid Body Fluid Culture - Preliminary Assessment and Plan (1) Renal cell carcinoma Narrative/Plan: Dr. Armando discussed with the pt VEGF therapy with pazopanib and pt is interested. We will have office look into that specialty Rx and follow up outpatient. He will continue with radiation therapy for pain control of right shoulder Status: Acute (2) Metastatic carcinoma Status: Acute (3) Cancer related pain Narrative/Plan: Continue radiation therapy and titrate pain meds for comfort Status: Acute (4) Acute pulmonary embolism Narrative/Plan: Continue on heparin drip for now. Xarelto will be initiated once all procedures have been completed. Status: Acute (5) Pleural effusion Narrative/Plan: 1.5 L drained, highly suspect malignant effusion. Plan is for pleurix drain. Status: Acute
[2017-02-03] MEDS: MORPHINE SULFATE 4 MG/ML SYRINGE IV PRN (15:26)
[2017-02-03] MEDS: ALPRAZolam 0.25 MG TAB PO PRN (16:32)
--- NOTE | 2017-02-03 18:58 | P.GSCN ---
<Yvrose Ornelas - Last Filed: 02/03/17 18:37> History of Present Illness Consult date: 02/03/17 Reason for Consult: Right pleural effusion, need for Pleurex catheter placement. Requesting physician: Derik Guerrero History of present illness: This 61 y/o male presented to ER with increasing shortness of breath and chest pain with coughing for approximately two days. He was worked up by cardiology and pulmonary as well as consults for oncology and radiation oncology as he has a recent diagnosis of metestatic renal cell carcinoma. He underwent thoracentesis yesterday with the post procedure xray demonstrating continued pleural effusion. Dr. Pena from thoracic surgery was consulted for placement of pleurex catheter for relief of symptoms. Review of Systems 14 point review of systems was completed and is negative except as noted. - Cardiovascular Reports as per HPI - Respiratory Reports as per HPI Past Medical History Past Medical History: Cancer Additional Past Medical History / Comment(s): recent diagnosis metastatic renal cell cancer History of Any Multi-Drug Resistant Organisms: None Reported Past Surgical History: Ear Surgery, Orthopedic Surgery, Tonsillectomy Past Anesthesia/Blood Transfusion Reactions: No Reported Reaction Past Psychological History: No Psychological Hx Reported Smoking Status: Former smoker Past Alcohol Use History: None Reported Past Drug Use History: Marijuana Additional Drug Use History / Comment(s): pt states still smokes marijuana - Past Family History Father Family Medical History: Cancer Additional Family Medical History / Comment(s): dad 2015 from leukemia Mother Family Medical History: COPD, CVA/TIA Medications and Allergies Home Medications Medication Instructions Recorded Confirmed Type No Known Home Medications [No 01/29/17 01/30/17 History Known Home Medications] Allergies Allergy/AdvReac Type Severity Reaction Status Date / Time No Known Allergies Allergy Verified 01/29/17 21:29 Surgical - Exam Vital Signs Temp Pulse Resp BP Pulse Ox 98.5 F 120 H 20 136/79 92 L 01/29/17 21:29 01/29/17 21:29 01/29/17 21:29 01/29/17 21:29 01/29/17 21:29 - General mild distress, anxious well developed - Eyes PERRL, normal ocular movement - Neck no masses, no bruits, trachea midline - Respiratory lung sounds diminished bilaterally, right > left, currently on 4L NC - Cardiovascular NSR/ST on telemetry, no edema present Rhythm: regular Heart Sounds: normal: S1, S2 - Abdomen Abdomen: soft, non tender, bowel sounds - Genitourinary deferred - Rectum deferred - Neurologic normal coordination, normal sensation - Musculoskeletal normal gait - Psychiatric oriented to time, oriented to person, oriented to place, speech is normal, memory intact Results - Labs 02/03/17 06:11 02/02/17 06:11 Abnormal Lab Results - Last 24 Hours (Table) 02/03/17 02/03/17 Range/Units 06:11 06:11 RBC 4.16 L (4.30-5.90) m/uL Hgb 11.7 L (13.0-17.5) gm/dL Hct 36.2 L (39.0-53.0) % APTT 45.1 H (22.0-30.0) sec Microbiology - Last 24 Hours (Table) 02/02/17 14:15 Gram Stain - Preliminary Pleural Fluid Body Fluid Culture - Preliminary - Imaging Chest x-ray: report reviewed, image reviewed Assessment and Plan (1) Dyspnea Status: Acute (2) Metastatic carcinoma Status: Acute (3) Pleural effusion Status: Acute Plan: 1. Pt is to be NPO after midnight for planned right pleurex catheter placement tomorrow morning. 2. Stop heparin drip transport conductor to OR. 3. Teaching done with pt/family related to pleurex catheter, all questions answered. 4. Medical management per primary/pulmonology/oncology. 5. May discharge after pleurex cath placement from our standpoint with need for teaching to family and home care to follow. Pt can have pleurex cath drained 3x per week, or more often if warranted by symptoms. Please have home care call our office at with drainage amounts so that we may determine when the catheter needs to be removed. Thank you, Dr. Guerrero, for this consult. We appreciate the ability to assist in the care of your patient. Time with Patient: Greater than 30 <Marbin Pena - Last Filed: 02/04/17 09:42> Surgical - Exam Vital Signs Temp Pulse Resp BP Pulse Ox 98.5 F 120 H 20 136/79 92 L 01/29/17 21:29 01/29/17 21:29 01/29/17 21:29 01/29/17 21:29 01/29/17 21:29 Results - Labs 02/04/17 02:57 02/04/17 02:57 Abnormal Lab Results - Last 24 Hours (Table) 02/03/17 02/04/17 02/04/17 Range/Units 19:06 02:57 02:57 RBC 4.11 L (4.30-5.90) m/uL Hgb 11.7 L (13.0-17.5) gm/dL Hct 36.1 L (39.0-53.0) % APTT 32.1 H (22.0-30.0) sec Carbon Dioxide 31 H (22-30) mmol/L BUN 8 L (9-20) mg/dL Glucose 118 H (74-99) mg/dL Total Protein 5.6 L (6.3-8.2) g/dL Albumin 2.8 L (3.5-5.0) g/dL 02/04/17 Range/Units 02:57 RBC (4.30-5.90) m/uL Hgb (13.0-17.5) gm/dL Hct (39.0-53.0) % APTT 35.6 H (22.0-30.0) sec Carbon Dioxide (22-30) mmol/L BUN (9-20) mg/dL Glucose (74-99) mg/dL Total Protein (6.3-8.2) g/dL Albumin (3.5-5.0) g/dL Microbiology - Last 24 Hours (Table) 02/02/17 14:15 Gram Stain - Preliminary Pleural Fluid Body Fluid Culture - Preliminary Diabetes panel 02/04/17 Range/Units 02:57 Sodium 138 (137-145) mmol/L Potassium 4.2 (3.5-5.1) mmol/L Chloride 100 (98-107) mmol/L Carbon Dioxide 31 H (22-30) mmol/L BUN 8 L (9-20) mg/dL Creatinine 0.90 (0.66-1.25) mg/dL Glucose 118 H (74-99) mg/dL Calcium 9.7 (8.4-10.2) mg/dL AST 25 (17-59) U/L ALT 44 (21-72) U/L Alkaline Phosphatase 85 (38-126) U/L Total Protein 5.6 L (6.3-8.2) g/dL Albumin 2.8 L (3.5-5.0) g/dL Calcium panel 02/04/17 Range/Units 02:57 Calcium 9.7 (8.4-10.2) mg/dL Albumin 2.8 L (3.5-5.0) g/dL Pituitary panel 02/04/17 Range/Units 02:57 Sodium 138 (137-145) mmol/L Potassium 4.2 (3.5-5.1) mmol/L Chloride 100 (98-107) mmol/L Carbon Dioxide 31 H (22-30) mmol/L BUN 8 L (9-20) mg/dL Creatinine 0.90 (0.66-1.25) mg/dL Glucose 118 H (74-99) mg/dL Calcium 9.7 (8.4-10.2) mg/dL Adrenal panel 02/04/17 Range/Units 02:57 Sodium 138 (137-145) mmol/L Potassium 4.2 (3.5-5.1) mmol/L Chloride 100 (98-107) mmol/L Carbon Dioxide 31 H (22-30) mmol/L BUN 8 L (9-20) mg/dL Creatinine 0.90 (0.66-1.25) mg/dL Glucose 118 H (74-99) mg/dL Calcium 9.7 (8.4-10.2) mg/dL Total Bilirubin 0.5 (0.2-1.3) mg/dL AST 25 (17-59) U/L ALT 44 (21-72) U/L Alkaline Phosphatase 85 (38-126) U/L Total Protein 5.6 L (6.3-8.2) g/dL Albumin 2.8 L (3.5-5.0) g/dL Assessment and Plan Plan: chest x-ray was reviewed with Dr. Guerrero. chart was reviewed. The patient was examined. There was marked decrease in breath sounds on the right as well as dullness to percussion. I met with the patient and his family and discussed the options for treatment. In light of his rapidly recurrent and symptomatic right pleural effusion status post thoracentesis the day before, the best treatment appears to be a Pleurx catheter. The operation its indications risks versus benefits possible complications and alternatives were all discussed. The usual perioperative course was discussed. The outpatient management was also discussed. Informed consent was obtained. Assessment is recurrent right malignant pleural effusion due to lung cancer. Plan is to proceed with right Pleurx catheter placement in the morning.
[2017-02-04 03:13] LABS: Basophils # (A) 0.1 k/uL (0-0.2); Basophils % (A) 1 %; CH 28.2; CHCM 32.2; Eosinophils # (A) 0.3 k/uL (0-0.7); Eosinophils % (A) 3 %; HCT 36.1 % (39.0-53.0); HDW 2.61; HGB 11.7 gm/dL (13.0-17.5); Luc # (Auto) 0.19; Luc % (Auto) 2; Lymphocytes # (A) 1.3 k/uL (1.0-4.8); Lymphocytes % (A) 14 %; MCH 28.5 pg (25.0-35.0); MCHC 32.4 g/dL (31.0-37.0); MCV 87.9 fL (80.0-100.0); Mean Platelet Volume 6.5; Monocytes # (A) 0.7 k/uL (0-1.0); Monocytes % (A) 7 %; Neutrophils % (A) 74 %; RBC 4.11 m/uL (4.30-5.90); RDW 12.8 % (11.5-15.5); WBC 9.5 k/uL (3.8-10.6); WBC (Perox) 10.26
[2017-02-04 03:21] LABS: INR 1.2 (<1.1); Partial Thromboplastin Time 35.6 sec (22.0-30.0); Prothrombin Time 11.8 sec (9.0-12.0)
[2017-02-04 03:25] LABS: ALT 44 U/L (21-72); AST 25 U/L (17-59); Alkaline Phosphatase 85 U/L (38-126); Anion Gap 7 mmol/L; Blood Urea Nitrogen 8 mg/dL (9-20); Calcium 9.7 mg/dL (8.4-10.2); Carbon Dioxide 31 mmol/L (22-30); Chloride 100 mmol/L (98-107); Glucose 118 mg/dL (74-99); Non-African American GFR(MDRD) >60 (>60 ml/min/1.73 sqM); Potassium 4.2 mmol/L (3.5-5.1); Sodium 138 mmol/L (137-145); Total Bilirubin 0.5 mg/dL (0.2-1.3); Total Protein 5.6 g/dL (6.3-8.2)
[2017-02-04] MEDS: HYDROcodone/APAP 5-325MG 1 EACH TAB PO PRN (05:19)
[2017-02-04] MEDS ORDERED: LIDOCAINE 1% INJ 10MG/ML (20 ML MDV) SQ ONE ×3 (08:30→09:17)
[2017-02-04] MEDS ORDERED: IV FLUID CONTINUATION 1,000 ML IV ONE (08:31)
[2017-02-04] MEDS: IPRATROPIUM-ALBUTEROL 3 ML NEB INHALATION SCH ×3 (08:59→21:02)
[2017-02-04] MEDS ORDERED: MIDAZOLAM 2 MG/2 ML VIAL ONE (09:01)
[2017-02-04] MEDS ORDERED: KETAMINE 10 MG/ML 20 ML VIAL ONE (09:01)
[2017-02-04] MEDS ORDERED: PROPOFOL 10 MG/ML 20 ML VIAL IV ONE (09:01)
[2017-02-04] MEDS ORDERED: SODIUM CHLORIDE 0.9% 100 ML with ceFAZolin 2,000 MG IV ONE ×2 (09:12)
--- NOTE | 2017-02-04 09:40 | P.OP ---
Date of Procedure: 02/04/17 Preoperative Diagnosis: recurrent malignant pleural effusion Postoperative Diagnosis: recurrent malignant pleural effusion Procedure(s) Performed: right Pleurx catheter placement with fluoroscopic guidance Implants: Pleurx catheter Anesthesia: MAC Surgeon: Marbin Pena Estimated Blood Loss (ml): 2 IV fluids (ml): 150 Urine output (ml): 0 Pathology: none sent Condition: stable Disposition: PACU Indications for Procedure: recurrent right malignant pleural effusion Operative Findings: 1700 mL of serosanguineous fluid was drained from right pleural space Description of Procedure: the patient was brought to the operating room and placed supine on the operating table. The right anterior and lateral chest and right upper quadrant were sterilely prepped and draped. One percent lidocaine was used for local anesthesia this was infused in the skin in the region of the sixth interspace in the midaxillary line. We then used the skinny needle to confirm presence of pleural fluid deep to this area. 18-gauge needle was then used to puncture the pleural space in this area. Guidewire was threaded into the right pleural space under fluoroscopic guidance. The puncture site was enlarged to just over a centimeter with an 11 blade and a counter incision was made with local anesthesia infiltration at the costal margin anterior and inferior to this. The Pleurx catheter was tunneled from the counterincision to the puncture site and the cuff was positioned just subcutaneous. Introducer and dilator were placed over the wire and through the introducer sheath the Pleurx catheter was placed into the right pleural space under fluoroscopic guidance. Introducer sheath was then removed. The catheter was connected to suction and the pleural space evacuated. Catheter was secured at the exit site with a 2-0 silk suture. The puncture site was closed with a 4-0 Vicryl subcuticular stitch and then dressed with skin glue and a Band-Aid.'s were removed and standard Pleurx catheter dressing was placed on the Pleurx catheter. Patient was transferred to recovery in stable condition.
--- NOTE | 2017-02-04 09:58 | FL ---
FLUOROSCOPY 9 seconds of fluoroscopy time were utilized during pleural catheter placement. 0 images document the procedure.
[2017-02-04] MEDS ORDERED: HYDROmorphone 1 MG/ML 1 ML SYRINGE IVP ONE (10:06)
--- NOTE | 2017-02-04 10:21 | XR ---
EXAMINATION TYPE: XR chest 1V portable DATE OF EXAM: 02/04/2017 10:07 AM HISTORY: Pleural Catheter placement. REFERENCE: Previous study dated 02/02/2017. FINDINGS: The patient's pleural catheter cannot be visualized with certainty. There has been a reduction in the size of the pleural effusion on the right. Some fluid persists. The re is right basilar airspace disease. Heart size is obscured. The left lung appears normal. IMPRESSION: DECREASE IN THE SIZE OF THE PATIENT'S RIGHT-SIDED PLEURAL EFFUSION.
[2017-02-04] MEDS: MORPHINE SULFATE 4 MG/ML SYRINGE IV PRN ×2 (10:34→14:19)
[2017-02-04] MEDS: FAMOTIDINE 20 MG TAB PO SCH (11:17)
[2017-02-04] MEDS: DOCUSATE 100 MG CAP PO SCH (11:17)
[2017-02-04] MEDS: MORPHINE SULFATE ER 15 MG TABLET PO SCH ×3 (11:17→17:45)
[2017-02-04] MEDS: guaiFENesin 600 MG TABLET.ER PO SCH (11:17)
[2017-02-04] MEDS: HEPARIN SODIUM,PORCINE/D5W PMX 25,000 UNIT in DEXTROSE/WATER 1 500ML.BAG IV SCH (11:21)
--- NOTE | 2017-02-04 12:05 | P.PN ---
Subjective Progress note dated 02/01/2017 This is a 61-year-old male with a history of widely metastatic hypernephroma. The patient was admitted with a possible diagnosis of pulmonary embolism. After I saw him yesterday examination he looked to his scans and labs, I thought may be a tumor embolism syndrome. Anyway regardless, he is currently on IV heparin. The patient's feeling a bit better today. His breathing is improved. His disease throughout his body including the right forehead right shoulder and lung. Anyway I thought that he should have a palliative care consult release a referral to hospice. I'm not sure where he sat in that process. I did see his daughter talking to the hospice individual yesterday. Again he looks a bit better today. Apparently still be started on a factor X inhibitor tomorrow. Progress note dated 02/02/2017 61-year-old male with a history of widely metastatic hypernephroma. The patient was admitted with a possible diagnosis of pulmonary most him. Myself and my nurse practitioner looked at the CT angiogram were not impressed and I thought if he had pulmonary embolism it was really more tumor embolism syndrome. I do not think he really had a significant blood clot and certainly not large enough blood clots explain his respiratory issues. He does have a lot of disease in the right chest including pleural fluid. Interventional radiology was asked to do a drainage procedure on him today. I think just appropriate. Anyway there was a consult made to hospice. His breathing is worse today. I did speak to his daughter. His in bed. Using oxygen therapy. We'll be stacked started on a factor X a inhibitor today I believe her tomorrow. The patient is seen again today 02/03/2017 in follow-up on the selective care unit. He is awake and alert in no acute distress. He has been started on radiation treatments to the right scapular region and his pain feels improved today as compared to yesterday. Interventional radiology did remove 1.5 L of fluid from the right chest. Today's chest x-ray shows continued fluid there. Still requiring 4 L of high flow nasal cannula to maintain O2 saturations in the 90s. He is currently afebrile. Slightly tachycardic. No worsening shortness of breath. He is seen again today 01/04/2017 in follow-up. He is awake and alert in no acute distress. He did undergo Pleurx catheter insertion to the right chest this morning. His chest x-ray does show decrease in size of the right pleural effusion. Fluid for cytology is still pending from previous thoracentesis.He denies any worsening shortness of breath, cough or congestion. He does state he feels he is getting a sore throat and is utilizing lozenges. Has has complaints of right lower extremity discomfort and low back pain. Otherwise he is doing about the same as compared to yesterday. He did have a follow-up radiation to the right scapular area. Objective - Vital Signs Vital signs: Vital Signs Temp 96.8 F L 02/04/17 09:36 Pulse 94 02/04/17 10:15 Resp 14 02/04/17 10:15 BP 103/71 02/04/17 10:15 Pulse Ox 94 L 02/04/17 10:15 Intake & Output 02/03/17 02/04/17 02/04/17 18:59 06:59 18:59 Intake Total 100 900.000 300 Output Total 150 2000 405 Balance -50 -1100.000 -105 Weight 107.9 kg Intake: IV 300 Intake, IV Titration 500.000 Amount Heparin Sodium,Porcine/ 500.000 D5w Pmx 25,000 unit In Dextrose/Water 1 500ml. bag @ 18 UNITS/KG/HR 38. 88 mls/hr IV .[id number] [facility] Rx#:[id number] Oral 100 400 Output: Urine 150 2000 400 Estimated Blood Loss 5 Other: Voiding Method Toilet Toilet # Voids 1 1 - Exam GENERAL EXAM: Alert, comfortable in no apparent distress. HEAD: Normocephalic. EYES: Normal reaction of pupils, equal size. NOSE: Clear with pink turbinates. THROAT: No erythema or exudates. NECK: No masses, no JVD. CHEST: No chest wall deformity. Right-sided Pleurx catheter in place. LUNGS: Equal air entry with crackles bilaterally more so on the right lung. CVS: S1 and S2 normal with no audible murmurs, regular rhythm. ABDOMEN: No hepatosplenomegaly, normal bowel sounds, no guarding or rigidity. Extremities: There is no significant peripheral edema. No clubbing, no cyanosis. Peripheral pulses are intact. - Labs CBC & Chem 7: 02/04/17 02:57 02/04/17 02:57 Labs: Abnormal Lab Results - Last 24 Hours (Table) 02/03/17 02/04/17 02/04/17 Range/Units 19:06 02:57 02:57 RBC 4.11 L (4.30-5.90) m/uL Hgb 11.7 L (13.0-17.5) gm/dL Hct 36.1 L (39.0-53.0) % APTT 32.1 H (22.0-30.0) sec Carbon Dioxide 31 H (22-30) mmol/L BUN 8 L (9-20) mg/dL Glucose 118 H (74-99) mg/dL Total Protein 5.6 L (6.3-8.2) g/dL Albumin 2.8 L (3.5-5.0) g/dL 02/04/17 Range/Units 02:57 RBC (4.30-5.90) m/uL Hgb (13.0-17.5) gm/dL Hct (39.0-53.0) % APTT 35.6 H (22.0-30.0) sec Carbon Dioxide (22-30) mmol/L BUN (9-20) mg/dL Glucose (74-99) mg/dL Total Protein (6.3-8.2) g/dL Albumin (3.5-5.0) g/dL Microbiology - Last 24 Hours (Table) 02/02/17 14:15 Gram Stain - Preliminary Pleural Fluid Body Fluid Culture - Preliminary Assessment and Plan Plan: Impression: #1 Pulmonary embolism or perhaps tumor emboli. #2 Large right-sided pleural effusion status post thoracentesis with 1.5 L of serous fluid removed. Pathology is pending. Status post Pleurx catheter insertion today 02/04/2017. #3 Acute hypoxic respiratory failure secondary to above. #4 Metastatic renal cell carcinoma. Plan: The patient was seen and evaluated by Dr. Guerrero. His chest x-ray and labs were reviewed. He did receive a Pleurx catheter the right side of the chest today. In the interim we'll continue with his current medications. Oncology has discussed with him palliative versus hospice care. He'll continue with radiation therapy as scheduled. He is considering Votrient therapy as well. We' ll continue to follow.
--- NOTE | 2017-02-04 12:53 | P.PN ---
Subjective Principal diagnosis: Acute pulmonary embolism Patient is feeling better he is complaining of cough complaining of shortness of breath complaining of pain in the right shoulder blade area and complaining of constipation otherwise no complaints at this time. Objective - Vital Signs Vital signs: Vital Signs Temp 96.8 F L 02/04/17 09:36 Pulse 94 02/04/17 10:15 Resp 14 02/04/17 10:15 BP 103/71 02/04/17 10:15 Pulse Ox 94 L 02/04/17 10:15 Intake & Output 02/03/17 02/04/17 02/04/17 18:59 06:59 18:59 Intake Total 100 900.000 300 Output Total 150 2000 405 Balance -50 -1100.000 -105 Weight 107.9 kg Intake: IV 300 Intake, IV Titration 500.000 Amount Heparin Sodium,Porcine/ 500.000 D5w Pmx 25,000 unit In Dextrose/Water 1 500ml. bag @ 18 UNITS/KG/HR 38. 88 mls/hr IV .[id number] [facility] Rx#:[id number] Oral 100 400 Output: Urine 150 2000 400 Estimated Blood Loss 5 Other: Voiding Method Toilet Toilet # Voids 1 1 - Exam HEENT head normocephalic and atraumatic Neck is supple no JVD no goiter no lymphadenopathy Chest exam reveals a few scattered crackles no wheezing Cardiac exam reveals regular heart sounds no gallops no murmurs Abdomen is soft nontender no organomegaly Extremity exam reveals no edema no cyanosis or clubbing - Labs CBC & Chem 7: 02/04/17 02:57 02/04/17 02:57 Labs: Abnormal Lab Results - Last 24 Hours (Table) 02/03/17 02/04/17 02/04/17 Range/Units 19:06 02:57 02:57 RBC 4.11 L (4.30-5.90) m/uL Hgb 11.7 L (13.0-17.5) gm/dL Hct 36.1 L (39.0-53.0) % APTT 32.1 H (22.0-30.0) sec Carbon Dioxide 31 H (22-30) mmol/L BUN 8 L (9-20) mg/dL Glucose 118 H (74-99) mg/dL Total Protein 5.6 L (6.3-8.2) g/dL Albumin 2.8 L (3.5-5.0) g/dL 02/04/17 Range/Units 02:57 RBC (4.30-5.90) m/uL Hgb (13.0-17.5) gm/dL Hct (39.0-53.0) % APTT 35.6 H (22.0-30.0) sec Carbon Dioxide (22-30) mmol/L BUN (9-20) mg/dL Glucose (74-99) mg/dL Total Protein (6.3-8.2) g/dL Albumin (3.5-5.0) g/dL Microbiology - Last 24 Hours (Table) 02/02/17 14:15 Gram Stain - Preliminary Pleural Fluid Body Fluid Culture - Preliminary Assessment and Plan Plan: 1. Acute pulmonary embolism: Patient started on IV heparin. Pulmonary and hematology following. Plan to continue IV heparin then switch to Eliquis as recommended by hematology. Lower extremity ultrasound negative for DVT. 2. Metastatic renal cell carcinoma: Oncology following. Patient was following holistic treatment and natural remedies since diagnosis approximately a month ago. He is not a candidate for systemic therapy at this time. Radiation oncology consulted for possible palliative treatment. 3. 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 Cardiology following. EF of 55 -60% 4. Former smoking history 5. Constipation started Colace, at this time will give a dose of lactulose 6. Pain management: I would add extended release morphine 15 mg every 8 hours to his regimen. Continue with the IV morphine as needed. 8. Acute hypoxic respiratory failure secondary to his pulmonary emboli 9. R hip pain will check R hip CT scan Continue was current management will follow in a.m.
[2017-02-04] MEDS: ALPRAZolam 0.25 MG TAB PO PRN ×2 (14:17)
[2017-02-04] MEDS: RIVAROXABAN 15 MG TAB PO SCH (17:47)
--- NOTE | 2017-02-04 18:13 | CT ---
EXAMINATION TYPE: CT hip RT wo con DATE OF EXAM: 02/04/2017 2:48 PM COMPARISON: NONE HISTORY: Recent diagnosis renal cell cancer. Right hip pain, difficulty walking. CT DLP: 894.20 mGycm Automated exposure control for dose reduction was used. FINDINGS: There is a 2.8 x 4.6 x 4.9 cm destructive mass involving the posterior aspect of the iliac bone. This is invading through the SI joint and affecting the posterior sacrum on the right. This is also invad ing the adjacent gluteus muscles. There is an additional 2.7 x 3.0 x 5.1 cm lesion in the intertrochanteric region of the right hip. Th is is also breaking through the cortex. No pathological fracture is seen at this time. This is invadi ng the adjacent soft tissues. The pseudocystic change within the right femoral neck. The hip is nonspherical. There is a "bump" on the femoral neck. IMPRESSION: 1. 2 METASTATIC DEPOSITS BOTH WITH CORTICAL BREAKTHROUGH AND LOCAL INVASION. ONE INVOLVES THE INTERTR OCHANTERIC REGION AND PROXIMAL DIAPHYSIS OF THE FEMUR AND A LARGER LESION INVOLVES THE ILIAC BONE AND SACRUM. 2. FINDINGS COMPATIBLE WITH FEMOROACETABULAR IMPINGEMENT SYNDROME.
[2017-02-05] MEDS: MORPHINE SULFATE ER 15 MG TABLET PO SCH ×4 (00:08→23:19)
[2017-02-05] MEDS: ALPRAZolam 0.25 MG TAB PO PRN ×2 (00:08→12:42)
[2017-02-05] MEDS: guaiFENesin 600 MG TABLET.ER PO SCH ×3 (00:09→20:01)
[2017-02-05] MEDS: DOCUSATE 100 MG CAP PO SCH ×3 (00:09→20:01)
[2017-02-05] MEDS: HYDROcodone/APAP 5-325MG 1 EACH TAB PO PRN (06:00)
[2017-02-05 06:53] LABS: Basophils % (A) 0 %; Eosinophils # (A) 0.4 k/uL (0-0.7); Eosinophils % (A) 4 %; HDW 2.61; Luc # (Auto) 0.19; Luc % (Auto) 2; Lymphocytes # (A) 1.2 k/uL (1.0-4.8); Lymphocytes % (A) 12 %; MCH 27.7 pg (25.0-35.0); MCHC 31.6 g/dL (31.0-37.0); MCV 87.8 fL (80.0-100.0); Mean Platelet Volume 6.9; Monocytes # (A) 0.7 k/uL (0-1.0); Monocytes % (A) 7 %; Neutrophils # (A) 7.4 k/uL (1.3-7.7); Neutrophils % (A) 75 %; RBC 4.33 m/uL (4.30-5.90); RDW 13.1 % (11.5-15.5); WBC 9.9 k/uL (3.8-10.6)
[2017-02-05 07:01] LABS: ALT 32 U/L (21-72); AST 22 U/L (17-59); Alkaline Phosphatase 82 U/L (38-126); Anion Gap 7 mmol/L; Blood Urea Nitrogen 8 mg/dL (9-20); Carbon Dioxide 31 mmol/L (22-30); Chloride 100 mmol/L (98-107); Glucose 114 mg/dL (74-99); Non-African American GFR(MDRD) >60 (>60 ml/min/1.73 sqM); Potassium 4.2 mmol/L (3.5-5.1); Sodium 138 mmol/L (137-145); Total Bilirubin 0.7 mg/dL (0.2-1.3); Total Protein 5.9 g/dL (6.3-8.2)
[2017-02-05 07:05] LABS: INR 1.2 (<1.1); Prothrombin Time 12.3 sec (9.0-12.0)
[2017-02-05] MEDS: IPRATROPIUM-ALBUTEROL 3 ML NEB INHALATION SCH ×3 (07:07→21:16)
--- NOTE | 2017-02-05 07:23 | XR ---
EXAMINATION TYPE: XR chest 2V DATE OF EXAM: 02/05/2017 7:00 AM HISTORY: Pleural Catheter placement. REFERENCE: Previous study dated 02/04/2017. FINDINGS: I cannot with certainty identify the patient is pleural drain. There continues to be right-sided effusion. Some of this appears loculated. There is right basilar at electasis. The left lung is clear. Heart size is obscured. IMPRESSION: CONTINUING RIGHT-SIDED PLEURAL EFFUSION, SOME OF WHICH IS LOCULATED. THERE IS ASSOCIATED ATELECTASIS AT THE RIGHT LUNG BASE.
--- NOTE | 2017-02-05 08:06 | P.PN ---
Subjective Principal diagnosis: Recurrent malignant plural effusion, POD #1 right Pleurx catheter placement with fluoroscopic guidance Patient currently sitting up in bed in no apparent distress. States his breathing feels much better since placement of the catheter. Does admit to pain with movement but states his ordered pain medication is helping. Objective - Vital Signs Vital signs: Vital Signs Temp 97.8 F 02/05/17 04:00 Pulse 106 H 02/05/17 04:00 Resp 20 02/05/17 04:00 BP 110/72 02/05/17 04:00 Pulse Ox 91 L 02/05/17 04:00 Intake & Output 02/04/17 02/05/17 02/05/17 18:59 06:59 18:59 Intake Total 1560 Output Total 405 4150 Balance 1155 -4150 Weight 106.5 kg Intake: IV 1100 Sodium Chloride 0.9% 1, 800 000 ml @ 100 mls/hr Oral 460 Output: Urine 400 4150 Estimated Blood Loss 5 Other: Voiding Method Urinal Urinal # Voids 1 - Constitutional General appearance: Present: cooperative, no acute distress, obese - Respiratory Details: Lungs sounds diminished bilaterally. Respirations even, nonlabored. Currently on 3 L nasal cannula. Right Pleurx catheter present covered by occlusive dressing. - Cardiovascular Details: S1, S2 present. No murmurs, rubs, or gallops. Regular rate and rhythm, sinus rhythm to sinus tach on telemetry. - Gastrointestinal Gastrointestinal Comment(s): Abdomen soft, nontender, nondistended. Active bowel sounds 4 quadrants. Tolerating diet. - Genitourinary Genitourinary Comment(s): Continues to void clear yellow urine. - Musculoskeletal Musculoskeletal: Present: strength equal bilaterally - Psychiatric Psychiatric: Present: A&O x's 3, appropriate affect, intact judgment & insight - Allied health notes Allied health notes reviewed: nursing - Labs CBC & Chem 7: 02/05/17 06:26 02/05/17 06:26 Labs: Abnormal Lab Results - Last 24 Hours (Table) 02/05/17 02/05/17 02/05/17 Range/Units 06:26 06:26 06:26 Hgb 12.0 L (13.0-17.5) gm/dL Hct 38.0 L (39.0-53.0) % PT 12.3 H (9.0-12.0) sec Carbon Dioxide 31 H (22-30) mmol/L BUN 8 L (9-20) mg/dL Glucose 114 H (74-99) mg/dL Total Protein 5.9 L (6.3-8.2) g/dL Albumin 3.0 L (3.5-5.0) g/dL Microbiology - Last 24 Hours (Table) 02/02/17 14:15 Gram Stain - Preliminary Pleural Fluid Body Fluid Culture - Preliminary - Imaging and Cardiology Chest x-ray: report reviewed, image reviewed Assessment and Plan (1) Dyspnea Status: Acute (2) Metastatic carcinoma Status: Acute (3) Pleural effusion Status: Acute Plan: 1. Will drain Pleurx catheter tomorrow morning with family present in order for teaching to be reinforced. 2. Chest x-ray looks improved this morning. No need for further x-rays. 3. Teaching done with pt/family related to pleurex catheter, all questions answered. 4. Medical management per primary/pulmonology/oncology. 5. May discharge from our standpoint with need for teaching to family and home care to follow. Pt can have pleurex cath drained 3x per week, or more often if warranted by symptoms. Please have home care call our office at with drainage amounts so that we may determine when the catheter needs to be removed. Time with Patient: Greater than 30
[2017-02-05] MEDS: RIVAROXABAN 15 MG TAB PO SCH ×2 (08:25→17:58)
[2017-02-05] MEDS: FAMOTIDINE 20 MG TAB PO SCH (08:25)
--- NOTE | 2017-02-05 08:30 | P.PN ---
Subjective Principal diagnosis: Acute pulmonary embolism Patient is feeling better he is complaining of cough, complaining of shortness of breath, complaining of pain in the right shoulder blade area and complaining of constipation, patient is also complaining of R hip pain otherwise no complaints at this time. Objective - Vital Signs Vital signs: Vital Signs Temp 97.5 F L 02/05/17 08:00 Pulse 102 H 02/05/17 08:00 Resp 20 02/05/17 08:00 BP 114/68 02/05/17 08:00 Pulse Ox 95 02/05/17 08:00 Intake & Output 02/04/17 02/05/17 02/05/17 18:59 06:59 18:59 Intake Total 1560 Output Total 405 4150 200 Balance 1155 -4150 -200 Weight 106.5 kg Intake: IV 1100 Sodium Chloride 0.9% 1, 800 000 ml @ 100 mls/hr Oral 460 Output: Urine 400 4150 200 Estimated Blood Loss 5 Other: Voiding Method Urinal Urinal # Voids 1 - Exam HEENT head normocephalic and atraumatic Neck is supple no JVD no goiter no lymphadenopathy Chest exam reveals a few scattered crackles no wheezing Cardiac exam reveals regular heart sounds no gallops no murmurs Abdomen is soft nontender no organomegaly Extremity exam reveals no edema no cyanosis or clubbing - Labs CBC & Chem 7: 02/05/17 06:26 02/05/17 06:26 Labs: Abnormal Lab Results - Last 24 Hours (Table) 02/05/17 02/05/17 02/05/17 Range/Units 06:26 06:26 06:26 Hgb 12.0 L (13.0-17.5) gm/dL Hct 38.0 L (39.0-53.0) % PT 12.3 H (9.0-12.0) sec Carbon Dioxide 31 H (22-30) mmol/L BUN 8 L (9-20) mg/dL Glucose 114 H (74-99) mg/dL Total Protein 5.9 L (6.3-8.2) g/dL Albumin 3.0 L (3.5-5.0) g/dL Microbiology - Last 24 Hours (Table) 02/02/17 14:15 Gram Stain - Preliminary Pleural Fluid Body Fluid Culture - Preliminary Assessment and Plan Plan: 1. Acute pulmonary embolism: Patient started on IV heparin. Pulmonary and hematology following. Plan to continue IV heparin then switch to Eliquis as recommended by hematology. Lower extremity ultrasound negative for DVT. 2. Metastatic renal cell carcinoma: Oncology following. Patient was following holistic treatment and natural remedies since diagnosis approximately a month ago. He is not a candidate for systemic therapy at this time. Radiation oncology consulted for possible palliative treatment. 3. 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 Cardiology following. EF of 55 -60% 4. Former smoking history 5. Constipation started Colace, at this time will give a dose of lactulose 6. Pain management: I would add extended release morphine 15 mg every 8 hours to his regimen. Continue with the IV morphine as needed. 8. Acute hypoxic respiratory failure secondary to his pulmonary emboli 9. R hip pain, R hip CT scan done and reveals evidence of metastatic disease Continue was current management will follow in a.m.
[2017-02-05] MEDS: MORPHINE SULFATE 4 MG/ML SYRINGE IV PRN ×2 (11:59→18:04)
--- NOTE | 2017-02-05 12:31 | P.PN ---
Subjective Progress note dated 02/01/2017 This is a 61-year-old male with a history of widely metastatic hypernephroma. The patient was admitted with a possible diagnosis of pulmonary embolism. After I saw him yesterday examination he looked to his scans and labs, I thought may be a tumor embolism syndrome. Anyway regardless, he is currently on IV heparin. The patient's feeling a bit better today. His breathing is improved. His disease throughout his body including the right forehead right shoulder and lung. Anyway I thought that he should have a palliative care consult release a referral to hospice. I'm not sure where he sat in that process. I did see his daughter talking to the hospice individual yesterday. Again he looks a bit better today. Apparently still be started on a factor X inhibitor tomorrow. Progress note dated 02/02/2017 61-year-old male with a history of widely metastatic hypernephroma. The patient was admitted with a possible diagnosis of pulmonary most him. Myself and my nurse practitioner looked at the CT angiogram were not impressed and I thought if he had pulmonary embolism it was really more tumor embolism syndrome. I do not think he really had a significant blood clot and certainly not large enough blood clots explain his respiratory issues. He does have a lot of disease in the right chest including pleural fluid. Interventional radiology was asked to do a drainage procedure on him today. I think just appropriate. Anyway there was a consult made to hospice. His breathing is worse today. I did speak to his daughter. His in bed. Using oxygen therapy. We'll be stacked started on a factor X a inhibitor today I believe her tomorrow. Other than that doing about the same. Progress note dated 02/05/2017 61-year-old male with history of metastatic hypernephroma. A Pleurx catheter was placed on the right side. The patient's got metastatic disease. His overall prognosis is poor. He was thought to have pulmonary embolism but he may actually have tumor embolism syndrome. Anyway the patient is doing about the same or slightly better. Draining the fluid from the right chest has improved his pulmonary status. He also had a thoracentesis on the right side. Objective - Vital Signs Vital signs: Vital Signs Temp 97.5 F L 02/05/17 08:00 Pulse 102 H 02/05/17 08:00 Resp 20 02/05/17 08:00 BP 114/68 02/05/17 08:00 Pulse Ox 95 02/05/17 08:00 Intake & Output 02/04/17 02/05/17 02/05/17 18:59 06:59 18:59 Intake Total 1560 240 Output Total 405 4150 200 Balance 1155 -4150 40 Weight 106.5 kg Intake: IV 1100 Sodium Chloride 0.9% 1, 800 000 ml @ 100 mls/hr Oral 460 240 Output: Urine 400 4150 200 Estimated Blood Loss 5 Other: Voiding Method Urinal Urinal # Voids 1 - Exam No acute distress, oriented 3. Sleeping when we first came in. HEENT examination is grossly unremarkable.he is a large lesion in his right forehead area consistent with metastatic hypernephroma Neck supple. Full range of motion. No adenopathy. Cardiovascular examination reveals regular rhythm rate. S1-S2 normal. No S3- S4 murmur. Lungs reveal relatively clear breath sounds. A few scattered rhonchi. No wheezes. No crackles. His abdominal examination is unremarkable. Extremities are intact. - Labs CBC & Chem 7: 02/05/17 06:26 02/05/17 06:26 Labs: Abnormal Lab Results - Last 24 Hours (Table) 02/05/17 02/05/17 02/05/17 Range/Units 06:26 06:26 06:26 Hgb 12.0 L (13.0-17.5) gm/dL Hct 38.0 L (39.0-53.0) % PT 12.3 H (9.0-12.0) sec Carbon Dioxide 31 H (22-30) mmol/L BUN 8 L (9-20) mg/dL Glucose 114 H (74-99) mg/dL Total Protein 5.9 L (6.3-8.2) g/dL Albumin 3.0 L (3.5-5.0) g/dL Microbiology - Last 24 Hours (Table) 02/02/17 14:15 Gram Stain - Preliminary Pleural Fluid Body Fluid Culture - Preliminary Assessment and Plan (1) Acute pulmonary embolism Status: Acute (2) Cancer related pain Status: Acute (3) Hypoxia Status: Acute (4) Metastatic carcinoma Status: Acute (5) Renal cell carcinoma Status: Acute Plan: Plan The patient's a pulmonary embolism may actually represent tumor emboli. I'm not sure that I really see much of a pulmonary embolism in the left lower lobe left lower lobe pulmonary artery. Anyway, as mentioned previously, he has more than enough disease in the right chest explain his shortness of breath. I would be inclined to be more conservative with this gentleman and off for him hospice consultation and/or palliative care consultation. Should he be started on blood thinners, he will need lifelong anticoagulation. No additional recommendations are made. Prognosis is very poor. Plan dated 02/01/2017 From the pulmonary standpoint patient seems reasonably stable. He has a history of possible acute pulmonary embolism, versus tumor embolism syndrome. He also suffers from widely metastatic hypernephroma. Apparently hospice will come today to speak to the patient. Additional recommendations suggestions are forthcoming. He is currently in IV heparin. We switched to a factor X a inhibitor tomorrow. Discharge hopefully soon. If he is maintained on the blood thinner, should be lifelong. Plan dated 02/02/2017 Agree with thoracentesis done by interventional radiology. 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 He does have widely metastatic hypernephroma. His overall prognosis is poor. Additional recommendations suggestions are forthcoming. We' ll continue to follow. Meds labs and x-rays are reviewed. Plan dated 02/05/2017 Overall the patient's clinical status has improved. His shortness of breath is improved with the thoracentesis done by interventional radiology and the Pleurx catheter placement done by thoracic surgery. We'll continue to follow. Chest x -rays improved although this remains of fluid loculated on the right chest. No additional recommendations are made. Hopefully discharge soon. Hospice has been consulted. Time with Patient: Less than 30
[2017-02-05] MEDS: diphenhydrAMINE 25 MG CAP PO PRN (16:36)
[2017-02-06 01:19] VITALS: RESP 18; TEMP 97.8
[2017-02-06] MEDS: diphenhydrAMINE 25 MG CAP PO PRN (03:44)
[2017-02-06] MEDS: ALPRAZolam 0.25 MG TAB PO PRN (03:44)
[2017-02-06] MEDS: MORPHINE SULFATE 4 MG/ML SYRINGE IV PRN (03:46)
[2017-02-06 06:57] LABS: ALT 32 U/L (21-72); AST 21 U/L (17-59); Alkaline Phosphatase 73 U/L (38-126); Anion Gap 8 mmol/L; Blood Urea Nitrogen 10 mg/dL (9-20); Calcium 10.1 mg/dL (8.4-10.2); Carbon Dioxide 31 mmol/L (22-30); Chloride 100 mmol/L (98-107); Glucose 122 mg/dL (74-99); Non-African American GFR(MDRD) >60 (>60 ml/min/1.73 sqM); Potassium 4.7 mmol/L (3.5-5.1); Sodium 139 mmol/L (137-145); Total Bilirubin 0.5 mg/dL (0.2-1.3); Total Protein 5.9 g/dL (6.3-8.2)
[2017-02-06] MEDS: RIVAROXABAN 15 MG TAB PO SCH ×2 (06:59→16:23)
[2017-02-06] MEDS: DOCUSATE 100 MG CAP PO SCH (08:58)
[2017-02-06] MEDS: ASPIRIN 325 MG TAB PO SCH (08:58)
[2017-02-06] MEDS: MORPHINE SULFATE ER 15 MG TABLET PO SCH ×2 (08:59→16:23)
[2017-02-06] MEDS: guaiFENesin 600 MG TABLET.ER PO SCH (08:59)
[2017-02-06] MEDS: FAMOTIDINE 20 MG TAB PO SCH (08:59)
[2017-02-06] MEDS: IPRATROPIUM-ALBUTEROL 3 ML NEB INHALATION SCH ×2 (09:07→14:03)
--- NOTE | 2017-02-06 10:20 | P.PN ---
Subjective Principal diagnosis: Recurrent malignant plural effusion, POD #2 right Pleurx catheter placement with fluoroscopic guidance Patient currently sitting up in bed in no apparent distress. States his breathing feels much better since placement of the catheter. Objective - Vital Signs Vital signs: Vital Signs Temp 97.8 F 02/06/17 00:00 Pulse 104 H 02/06/17 04:00 Resp 18 02/06/17 04:00 BP 111/79 02/06/17 04:00 Pulse Ox 93 L 02/06/17 04:00 Intake & Output 02/05/17 02/06/17 02/06/17 18:59 06:59 18:59 Intake Total 1720 1000 220 Output Total 1250 725 Balance 470 275 220 Weight 106 kg Intake: IV 800 1000 Sodium Chloride 0.9% 1, 800 1000 000 ml @ 100 mls/hr Oral 920 220 Output: Urine 1250 725 - Constitutional General appearance: Present: cooperative, no acute distress, obese - Respiratory Details: Lungs sounds diminished bilaterally, right greater than left. Respirations even , nonlabored. Currently on 3 L nasal cannula. Right Pleurx catheter present covered with dry intact dressing - Cardiovascular Details: S1, S2 present tachycardia rate, regular rhythm, sinus tach on telemetry. - Gastrointestinal Gastrointestinal Comment(s): Abdomen soft, nontender, nondistended. Active bowel sounds 4 quadrants. - Genitourinary Genitourinary Comment(s): Continues to void clear, yellow urine. - Musculoskeletal Musculoskeletal: Present: strength equal bilaterally - Psychiatric Psychiatric: Present: A&O x's 3, appropriate affect, intact judgment & insight - Allied health notes Allied health notes reviewed: nursing - Labs CBC & Chem 7: 02/05/17 06:26 02/06/17 06:16 Labs: Abnormal Lab Results - Last 24 Hours (Table) 02/06/17 Range/Units 06:16 Carbon Dioxide 31 H (22-30) mmol/L Glucose 122 H (74-99) mg/dL Total Protein 5.9 L (6.3-8.2) g/dL Albumin 2.9 L (3.5-5.0) g/dL Microbiology - Last 24 Hours (Table) 02/02/17 14:15 Gram Stain - Preliminary Pleural Fluid Body Fluid Culture - Preliminary Assessment and Plan (1) Dyspnea Status: Acute (2) Metastatic carcinoma Status: Acute (3) Pleural effusion Status: Acute Plan: 1. Pleurx catheter drained 1000 cc straw colored fluid this morning with family present. 2. Teaching done with pt/family related to pleurex catheter, all questions answered. 3. Medical management per primary/pulmonology/oncology. 4. May discharge from our standpoint with need for teaching to family and home care to follow. Pt can have pleurex cath drained 3x per week, or more often if warranted by symptoms. Please have home care call our office at with drainage amounts so that we may determine when the catheter needs to be removed. 5. If patient remains in the hospital we will see PRN. Time with Patient: Greater than 30
[2017-02-06] MEDS: HYDROcodone/APAP 5-325MG 1 EACH TAB PO PRN (11:12)
--- NOTE | 2017-02-06 11:20 | P.DS ---
Providers Date of admission: 01/30/17 00:34 Expected date of discharge: 02/06/17 Attending physician: Berenice Sosa Consults: 01/30/17 06:25 Consult Physician Routine Consulting Provider: Ramone Lewis Consult Reason/Comments: Pulmonary Embolism Do you want consulting provider notified?: Yes 01/30/17 10:42 Consult Physician Routine Consulting Provider: Adan Washington Consult Reason/Comments: Pulmonary emboli Do you want consulting provider notified?: Yes 01/30/17 19:19 Consult Physician Routine Consulting Provider: Kamari Ferro Consult Reason/Comments: Malignancy pain Do you want consulting provider notified?: Yes, Notify in am 02/03/17 18:15 Consult Physician Routine Consulting Provider: Marbin Pena Consult Reason/Comments: pleurex catheter placement Do you want consulting provider notified?: Already Contacted Primary care physician: Evelyn Spencer Hospital Course: This is a 61-year-old gentleman with complex past medical history significant for recently diagnosed metastatic renal cell carcinoma with diffuse bony metastasis presented to the hospital initially with worsening shortness of breath. Patient was found to have an acute pulmonary emboli and was seen and evaluated by multiple specialists including oncology, pulmonology, and radiation oncology. Patient was started on radiation therapy and palliative treatment. He was also noted to have a large metastatic pleural effusion and underwent a Pleurx catheter placement by thoracic surgery. Catheter will remain in place. He will be trained by visiting nurse at home as needed for symptomatic relief. His pain regimen was adjusted. He would be discharged home with home care. He is scheduled to continue radiation therapy as an outpatient. No oral anticoagulants will be used as a blood thinner. Please refer to the electronic chart for further details about this hospitalization. Patient Condition at Discharge: Serious Plan - Discharge Summary New Discharge Prescriptions: Hydrocodone/Acetaminophen [[place] 10-325] 1 tab PO Q4H PRN #60 tab PRN Reason: Pain Morphine Sulfate ER [Ms Contin] 15 mg PO Q8HR #30 tablet Rivaroxaban [Xarelto] 15 mg PO BID-W/MEALS #40 tab Rivaroxaban [Xarelto] 20 mg PO DAILY #30 tab Discharge Medication List Hydrocodone/Acetaminophen [[place] 10-325] 1 tab PO Q4H PRN #60 tab 02/06/17 [Rx] Morphine Sulfate ER [Ms Contin] 15 mg PO Q8HR #30 tablet 02/06/17 [Rx] Rivaroxaban [Xarelto] 15 mg PO BID-W/MEALS #40 tab 02/06/17 [Rx] Rivaroxaban [Xarelto] 20 mg PO DAILY #30 tab 02/06/17 [Rx] Follow up Appointment(s)/Referral(s): Evelyn Negrete MD [Primary Care Provider] - 02/07/17 2:15 pm [facility], [NON-STAFF] - Kurt Armando MD [STAFF PHYSICIAN] - 1 Week Activity/Diet/Wound Care/Special Instructions: Pleurex cath can be drained 3x per week, or more often if pt symptomatic/large drainage present. Please have home care call cardiac surgery office @ with weekly total of drainage so we may anticipate when catheter should be removed. Discharge Disposition: HOME WITH HOME HEALTH SERVICES
[2017-02-06 13:17] VITALS: BP 106/65; PULSE 103
--- NOTE | 2017-02-06 17:52 | P.PN ---
Subjective This is a 61-year-old gentleman with complex past medical history significant for recently diagnosed metastatic renal cell carcinoma with diffuse bony metastasis presented to the hospital initially with worsening shortness of breath. Patient was found to have an acute pulmonary emboli and pleural effusion. The patient underwent a successful therapeutic and diagnostic thoracentesis and total of 1.5 L of fluid was removed from the right lung and the pleural fluid was minimally cellular and it had mainly inflammatory cells. Sequently, the patient had a Pleurx catheter placement by CT surgery and he is undergoing periodic evacuation of the right sided pleural effusion and the most recent drainage was performed today where a total of 1 L of fluid was removed from the right lung. There are plans to discharge this patient home today on home oxygen. Note that he has started on radiation therapy and palliative treatment for a 8 x 6 cm mass involving the right scapular spine. He is also found out to have extensive bilateral pulmonary nodules and adenopathy along with lytic lesions at the level of the 2 and the large right upper lobe alveolar opacity measuring 5 x 3.7 cm in size. Oncology is on the case. He'll be discharged home today for outpatient radiation therapy and possible systemic therapy Objective - Vital Signs Vital signs: Vital Signs Temp 97.8 F 02/06/17 00:00 Pulse 103 H 02/06/17 12:00 Resp 18 02/06/17 12:00 BP 106/65 02/06/17 12:00 Pulse Ox 95 02/06/17 12:00 Intake & Output 02/05/17 02/06/17 02/06/17 18:59 06:59 18:59 Intake Total 1720 1000 1020 Output Total 1250 1725 Balance 470 -725 1020 Weight 106 kg Intake: IV 800 1000 Sodium Chloride 0.9% 1, 800 1000 000 ml @ 100 mls/hr Intake, IV Titration 800 Amount Sodium Chloride 0.9% 100 800 ml As IV .STK-MED ONE with ceFAZolin 2,000 mg Rx#:[id number] Oral 920 220 Output: Chest Tube Drainage 1000 Pleural Catheter Right 1000 Urine 1250 725 - Exam Head exam was generally normal. There was no scleral icterus or corneal arcus. Mucous membranes were moist.Neck was supple and without jugular venous distension, thyromegaly, or carotid bruits. Carotids were easily palpable bilaterally. There was no adenopathy. Lung sounds are diminished in the right lung base compared to the left.Cardiac exam revealed the PMI to be normally situated and sized. The rhythm was regular and no extrasystoles were noted during several minutes of auscultation. The first and second heart sounds were normal and physiologic splitting of the second heart sound was noted. There were no murmurs, rubs, clicks, or gallops.Abdominal exam revealed normal bowel sounds. The abdomen was soft, non-tender, and without masses, organomegaly, or appreciable enlargement of the abdominal aorta.Examination of the extremities revealed easily palpable radial, femoral and pedal pulses. There was no cyanosis , clubbing or edema. Examination head shows no other lesions over the right forehead typical of metastatic lesions. - Labs CBC & Chem 7: 02/05/17 06:26 02/06/17 06:16 Labs: Abnormal Lab Results - Last 24 Hours (Table) 02/06/17 Range/Units 06:16 Carbon Dioxide 31 H (22-30) mmol/L Glucose 122 H (74-99) mg/dL Total Protein 5.9 L (6.3-8.2) g/dL Albumin 2.9 L (3.5-5.0) g/dL Microbiology - Last 24 Hours (Table) 02/02/17 14:15 Gram Stain - Preliminary Pleural Fluid Body Fluid Culture - Preliminary Assessment and Plan Plan: Assessment 1 metastatic renal cell carcinoma with extensive pulmonary skeletal involvement. 2 large right-sided pleural effusion status post insertion of a Pleurx catheter 3 pulmonary embolism on Xarelto 4 hypoxic respiratory failure secondary to above Plan Continue scheduled for radiation therapy. Education on the use a Pleurx catheter and anticipate evacuation of the right-sided pleural effusion every 48 hours. Follow-up with pulmonary. Follow-up with oncology. Follow-up with radiation oncology. This is a patient home on morphine sulfate and oxycodone for pain control and Xarelto for long-term and to coagulation.
== END 2017-02-06 18:37 | disposition home health service (06) | DRG 542 ==
LOC: EC 21:25 → 6SEL 01-30 00:34
PROVIDERS: ADMIT Internal Medicine; ATTEND Internal Medicine
PROC: DP0C1ZZ Beam Radiation of Other Bone using Photons 1 - 10 MeV (ICD-10-PCS; 2017-02-01)
PROC: 0W993ZX Drainage of Right Pleural Cavity, Percutaneous Approach, Diagnostic (ICD-10-PCS; principal; 2017-02-02)
PROC: DP0C1ZZ Beam Radiation of Other Bone using Photons 1 - 10 MeV (ICD-10-PCS; 2017-02-02)
PROC: DP0C1ZZ Beam Radiation of Other Bone using Photons 1 - 10 MeV (ICD-10-PCS; 2017-02-03)
PROC: 0W9930Z Drainage of Right Pleural Cavity with Drainage Device, Percutaneous Approach (ICD-10-PCS; 2017-02-04)
PROC: DP0C1ZZ Beam Radiation of Other Bone using Photons 1 - 10 MeV (ICD-10-PCS; 2017-02-06)
DX: C79.51 Secondary malignant neoplasm of bone (principal); I26.99 Other pulmonary embolism without acute cor pulmonale; J96.01 Acute respiratory failure with hypoxia; J91.0 Malignant pleural effusion; C64.9 Malignant neoplasm of unspecified kidney, except renal pelvis; I82.890 Acute embolism and thrombosis of other specified veins; E66.9 Obesity, unspecified; R53.1 Weakness; R00.0 Tachycardia, unspecified; G89.3 Neoplasm related pain (acute) (chronic); R59.0 Localized enlarged lymph nodes; K59.00 Constipation, unspecified; F12.90 Cannabis use, unspecified, uncomplicated; Z82.5 Family history of asthma and other chronic lower respiratory diseases; Z80.6 Family history of leukemia; Z99.81 Dependence on supplemental oxygen; Z87.891 Personal history of nicotine dependence; Z82.3 Family history of stroke; Z87.440 Personal history of urinary (tract) infections; Z68.35 Body mass index [BMI] 35.0-35.9, adult
CPT/HCPCS: 32555; 36415; 71010; 71020; 71275; 77290; 77295; 77300; 77334; 77387; 77412; 80053; 80061; 82550; 82553; 82945; 83605; 83615; 83735; 83880; 84100; 84157; 84484; 85025; 85379; 85610; 85730; 87070; 87205; 88108; 88305; 89050; 93005; 93306; 93970; 94640; 94760; 96361; 96365; 96376; 99291

== ENCOUNTER → 2017-03-03 | Outpatient (CLI) | payer OTHER ==
[~2017-03-03] MED LIST: DENOSUMAB 120 MG/1.7 ML VIAL SQ ONE
[2017-03-03 12:20] VITALS: BP 111/72; PULSE 88; RESP 18; TEMP 98.1
== END ==
LOC: PROCWHC3 11:40
PROVIDERS: ATTEND Internal Medicine Hematology & Oncology
DX: C79.51 Secondary malignant neoplasm of bone (principal)
CPT/HCPCS: 96372; J0897

== ENCOUNTER 2017-03-05 22:45 | Inpatient (IN) | payer OTHER ==
--- NOTE | 2017-03-05 23:12 | ED ---
General Adult HPI - General Chief complaint: Shortness of Breath Stated complaint: Dyspnea Time Seen by Provider: 03/05/17 22:58 Source: patient, family, RN notes reviewed Mode of arrival: ambulatory Limitations: no limitations - History of Present Illness Initial comments: Patient is a pleasant 62-year-old male presenting to the emergency Department with shortness of breath. Patient does have stage IV renal cell cancer with bony metastases and erosion. Patient reportedly has a renal tumor the size of a football. Patient has had shortness of breath progressive since yesterday. Patient does have cough with occasional blood-tinged sputum. Patient is on Xarelto. Patient has some mild discomfort in his chest. Patient has had some mild intermittent abdominal discomfort and fullness. Patient has been somewhat chilled. Patient feels dehydrated. - Related Data Home Medications Medication Instructions Recorded Confirmed [id number] 12MCG/HR PATCH [Duragesic 1 patch TRANSDERM Q72H 03/03/17 03/06/17 12MCG/HR] Pazopanib HCl [Votrient] 800 mg PO DAILY 03/06/17 03/06/17 guaiFENesin [Mucinex] 600 mg PO Q12H 03/06/17 03/06/17 Previous Rx's Medication Instructions Recorded Hydrocodone/Acetaminophen [[place] 1 tab PO Q4H PRN #60 tab 02/06/17 10-325] Rivaroxaban [Xarelto] 20 mg PO DAILY #30 tab 02/06/17 Allergies Allergy/AdvReac Type Severity Reaction Status Date / Time No Known Allergies Allergy Verified 03/05/17 22:52 Review of Systems ROS Statement: Those systems with pertinent positive or pertinent negative responses have been documented in the HPI. ROS Other: All systems not noted in ROS Statement are negative. Constitutional: Reports: chills Eyes: Denies: eye pain ENT: Denies: ear pain Respiratory: Reports: dyspnea Cardiovascular: Reports: chest pain Endocrine: Reports: fatigue Gastrointestinal: Reports: abdominal pain Genitourinary: Denies: dysuria Musculoskeletal: Denies: back pain Skin: Reports: change in color (Patient appeared slightly jaundice last week) Neurological: Reports: confusion (Sometimes with pain medication) Past Medical History Past Medical History: Cancer Additional Past Medical History / Comment(s): recent diagnosis metastatic renal cell cancer History of Any Multi-Drug Resistant Organisms: None Reported Past Surgical History: Ear Surgery, Orthopedic Surgery, Tonsillectomy Past Anesthesia/Blood Transfusion Reactions: No Reported Reaction Past Psychological History: No Psychological Hx Reported Smoking Status: Former smoker Past Alcohol Use History: None Reported Past Drug Use History: Marijuana Additional Drug Use History / Comment(s): pt states still smokes marijuana - Past Family History Father Family Medical History: Cancer Additional Family Medical History / Comment(s): dad 2016 from leukemia Mother Family Medical History: COPD, CVA/TIA General Exam Limitations: no limitations General appearance: alert, in no apparent distress Head exam: Present: atraumatic, other (Patient does have some subcutaneous lesions on his head) Eye exam: Present: normal appearance, PERRL ENT exam: Present: normal oropharynx Neck exam: Present: normal inspection Respiratory exam: Present: normal lung sounds bilaterally Cardiovascular Exam: Present: regular rate, normal rhythm GI/Abdominal exam: Present: soft, distended. Absent: tenderness Extremities exam: Present: normal inspection Neurological exam: Present: alert Psychiatric exam: Present: normal affect, normal mood Skin exam: Absent: rash Course Vital Signs 03/05/17 03/06/17 03/06/17 22:49 00:00 02:19 Temperature 99.4 F Pulse Rate 98 91 90 Respiratory 22 18 18 Rate Blood Pressure 124/75 141/81 124/76 O2 Sat by Pulse 97 96 96 Oximetry EKG Findings - EKG Comments: EKG Findings:: Normal sinus rhythm and 98. UT 126. QRS 82. QT 332. QTC 423. Normal axis. Normal QRS. Normal ST-T. Medical Decision Making - Lab Data Result diagrams: 03/08/17 06:06 03/08/17 06:06 Lab Results 03/05/17 03/05/17 03/05/17 Range/Units 23:15 23:15 23:15 WBC 8.9 (3.8-10.6) k/uL RBC 4.07 L (4.30-5.90) m/uL Hgb 11.5 L (13.0-17.5) gm/dL Hct 34.2 L (39.0-53.0) % MCV 84.1 (80.0-100.0) fL MCH 28.3 (25.0-35.0) pg MCHC 33.7 (31.0-37.0) g/dL RDW 14.2 (11.5-15.5) % Plt Count 465 H (150-450) k/uL Neutrophils % 77 % Lymphocytes % 13 % Monocytes % 6 % Eosinophils % 2 % Basophils % 1 % Neutrophils # 6.9 (1.3-7.7) k/uL Lymphocytes # 1.2 (1.0-4.8) k/uL Monocytes # 0.5 (0-1.0) k/uL Eosinophils # 0.2 (0-0.7) k/uL Basophils # 0.1 (0-0.2) k/uL PT (9.0-12.0) sec INR (<1.1) APTT (22.0-30.0) sec Sodium 133 L (137-145) mmol/L Potassium 4.6 (3.5-5.1) mmol/L Chloride 98 (98-107) mmol/L Carbon Dioxide 27 (22-30) mmol/L Anion Gap 8 mmol/L BUN 14 (9-20) mg/dL Creatinine 0.80 (0.66-1.25) mg/dL Est GFR (MDRD) Af Amer >60 (>60 ml/min/1.73 sqM) Est GFR (MDRD) Non-Af >60 (>60 ml/min/1.73 sqM) Glucose 101 H (74-99) mg/dL Calcium 9.0 (8.4-10.2) mg/dL Total Bilirubin 0.6 (0.2-1.3) mg/dL AST 58 (17-59) U/L ALT 69 (21-72) U/L Alkaline Phosphatase 92 (38-126) U/L Total Creatine Kinase 23 L (55-170) U/L CK-MB (CK-2) 0.5 (0.0-2.4) ng/mL CK-MB (CK-2) Rel Index 2.2 Troponin I <0.012 (0.000-0.034) ng/mL NT-Pro-B Natriuret Pep pg/mL Total Protein 7.1 (6.3-8.2) g/dL Albumin 3.5 (3.5-5.0) g/dL Urine Color Urine Appearance (Clear) Urine pH (5.0-8.0) Ur Specific [place] (1.001-1.035) Urine Protein (Negative) Urine Glucose (UA) (Negative) Urine Ketones (Negative) Urine Blood (Negative) Urine Nitrite (Negative) Urine Bilirubin (Negative) Urine Urobilinogen (<2.0) mg/dL Ur Leukocyte Esterase (Negative) 03/05/17 03/05/17 03/05/17 Range/Units 23:15 23:15 23:23 WBC (3.8-10.6) k/uL RBC (4.30-5.90) m/uL Hgb (13.0-17.5) gm/dL Hct (39.0-53.0) % MCV (80.0-100.0) fL MCH (25.0-35.0) pg MCHC (31.0-37.0) g/dL RDW (11.5-15.5) % Plt Count (150-450) k/uL Neutrophils % % Lymphocytes % % Monocytes % % Eosinophils % % Basophils % % Neutrophils # (1.3-7.7) k/uL Lymphocytes # (1.0-4.8) k/uL Monocytes # (0-1.0) k/uL Eosinophils # (0-0.7) k/uL Basophils # (0-0.2) k/uL PT 12.1 H (9.0-12.0) sec INR 1.2 (<1.1) APTT 29.4 (22.0-30.0) sec Sodium (137-145) mmol/L Potassium (3.5-5.1) mmol/L Chloride (98-107) mmol/L Carbon Dioxide (22-30) mmol/L Anion Gap mmol/L BUN (9-20) mg/dL Creatinine (0.66-1.25) mg/dL Est GFR (MDRD) Af Amer (>60 ml/min/1.73 sqM) Est GFR (MDRD) Non-Af (>60 ml/min/1.73 sqM) Glucose (74-99) mg/dL Calcium (8.4-10.2) mg/dL Total Bilirubin (0.2-1.3) mg/dL AST (17-59) U/L ALT (21-72) U/L Alkaline Phosphatase (38-126) U/L Total Creatine Kinase (55-170) U/L CK-MB (CK-2) (0.0-2.4) ng/mL CK-MB (CK-2) Rel Index Troponin I (0.000-0.034) ng/mL NT-Pro-B Natriuret Pep 216 pg/mL Total Protein (6.3-8.2) g/dL Albumin (3.5-5.0) g/dL Urine Color Yellow Urine Appearance Clear (Clear) Urine pH 7.0 (5.0-8.0) Ur Specific [place] 1.014 (1.001-1.035) Urine Protein Trace H (Negative) Urine Glucose (UA) Negative (Negative) Urine Ketones Negative (Negative) Urine Blood Negative (Negative) Urine Nitrite Negative (Negative) Urine Bilirubin Negative (Negative) Urine Urobilinogen <2.0 (<2.0) mg/dL Ur Leukocyte Esterase Negative (Negative) Disposition Clinical Impression: Dyspnea Disposition: ADMITTED IP TO THIS HOSP
[2017-03-05 23:31] LABS: Appearance,Urine Clear (Clear); Bilirubin,Urine Negative (Negative); Glucose,Urine (UA) Negative (Negative); Ketones,Urine Negative (Negative); Leukocyte Esterase,Urine Negative (Negative); Nitrite,Urine Negative (Negative); Protein,Urine Trace (Negative); Specific Gravity,Urine 1.014 (1.001-1.035); UA Billing (MACRO vs. MICRO) CHEM; Urobilinogen,Urine <2.0 mg/dL (<2.0)
[2017-03-05 23:55] LABS: Basophils # (A) 0.1 k/uL (0-0.2); Basophils % (A) 1 %; CH 28.1; CHCM 33.6; Eosinophils # (A) 0.2 k/uL (0-0.7); Eosinophils % (A) 2 %; HCT 34.2 % (39.0-53.0); HDW 3.11; HGB 11.5 gm/dL (13.0-17.5); Luc % (Auto) 1; Lymphocytes # (A) 1.2 k/uL (1.0-4.8); Lymphocytes % (A) 13 %; MCH 28.3 pg (25.0-35.0); MCHC 33.7 g/dL (31.0-37.0); MCV 84.1 fL (80.0-100.0); Mean Platelet Volume 7.1; Monocytes # (A) 0.5 k/uL (0-1.0); Monocytes % (A) 6 %; Neutrophils # (A) 6.9 k/uL (1.3-7.7); Neutrophils % (A) 77 %; RBC 4.07 m/uL (4.30-5.90); RDW 14.2 % (11.5-15.5); WBC 8.9 k/uL (3.8-10.6); WBC (Perox) 8.42
[2017-03-05 23:57] LABS: ALT 69 U/L (21-72); AST 58 U/L (17-59); Alkaline Phosphatase 92 U/L (38-126); Anion Gap 8 mmol/L; Blood Urea Nitrogen 14 mg/dL (9-20); Carbon Dioxide 27 mmol/L (22-30); Chloride 98 mmol/L (98-107); Glucose 101 mg/dL (74-99); Non-African American GFR(MDRD) >60 (>60 ml/min/1.73 sqM); Potassium 4.6 mmol/L (3.5-5.1); Sodium 133 mmol/L (137-145); Total Bilirubin 0.6 mg/dL (0.2-1.3); Total Protein 7.1 g/dL (6.3-8.2)
[2017-03-06] MEDS ORDERED: RX INFO: IV CONTRAST WAS GIVEN 1 EACH MISC MISCELLANE PRN (00:02)
[2017-03-06] MEDS ORDERED: MORPHINE SULFATE 4 MG/ML SYRINGE IV STA (00:04)
[2017-03-06 00:05] LABS: Creatine Kinase 23 U/L (55-170); INR 1.2 (<1.1); Partial Thromboplastin Time 29.4 sec (22.0-30.0); Prothrombin Time 12.1 sec (9.0-12.0)
--- NOTE | 2017-03-06 00:06 | XR ---
EXAM: XR Chest, 2 Views CLINICAL HISTORY: Reason: difficulty breathing TECHNIQUE: Frontal and lateral views of the chest. COMPARISON: 02/05/17 and 01/29/17. FINDINGS: Lungs: Patchy bilateral lung opacities may represent atelectasis, infiltrate, or underlying pulmonary nodules seen on prior CT., More prominent 3.2 cm rounded opacity at the lateral right mid lung field. Pleural space: Persistent loculated right pleural effusion, slightly improved. Heart: Likely stable cardiomediastinal silhouette. Mediastinum: See above. Bones/joints: Stable. IMPRESSION: 1. Patchy bilateral lung opacities may represent atelectasis, infiltrate, or underlying pulmonary nodules as seen on prior CT. More prominent 3.2 cm rounded opacity at the lateral right mid lung field. 2. Persistent loculated right pleural effusion, slightly improved.
--- NOTE | 2017-03-06 00:11 | XR ---
EXAM: XR Abdomen Complete, 2 or More Views CLINICAL HISTORY: Reason: Pain TECHNIQUE: Frontal view of the abdomen/pelvis with upright view of the abdomen. COMPARISON: CT 12/27/16. FINDINGS: Lower thorax: Loculated right pleural effusion. Intraperitoneal space: No evidence of intraperitoneal free air Gastrointestinal tract: Prominent air-filled bowel loops in the mid- left abdomen. Moderate stool in the right colon. Bones/joints: L4 vertebral body lesion as seen on prior CT Tubes, lines and devices: Query catheter overlying the right upper abdomen. IMPRESSION: Prominent air-filled bowel loops in the mid-left abdomen. Differential considerations include ileus, enteritis, or early partial obstruction.
[2017-03-06 00:19] LABS: Creatine Kinase MB 0.5 ng/mL (0.0-2.4); Troponin I <0.012 ng/mL (0.000-0.034)
--- NOTE | 2017-03-06 01:30 | CT ---
EXAM: CT Angiography Chest With Intravenous Contrast CLINICAL HISTORY: Reason: pe protocol. Chest pain. TECHNIQUE: Axial computed tomographic angiography images of the chest with intravenous contrast using pulmonary embolism protocol. CTDI is 16.14 mGy and DLP is 559 mGy-cm This CT exam was performed using one or more of the following dose reduction techniques: automated exposure control, adjustment of the mA and/or kV according to patient size, and/or use of iterative reconstruction technique. MIP reconstructed images were created and reviewed. COMPARISON: CT 01/29/17. FINDINGS: Pulmonary arteries: Possible small filling defects in the right upper lobe, cannot exclude PE. Aorta: No aortic aneurysm or dissection. Lungs: Multiple bilateral pulmonary nodules, previous dominant nodule at the left lower lobe has decreased in size, now measuring 1.7 cm compared to 2.1 cm previously.. Right upper lobe pleural-based mass appears increased in size compared to 12/27/16, measuring up to 4.4 cm. Additional pulmonary nodules in the right lung, previously not well seen due to atelectasis. Interval decrease in size of loculated right pleural effusion. Right chest tube noted with the tip at the right lung base. Small focus of air at the lateral right basilar pleural space may related to intervention. Layering hyperdensity may represent hemorrhagic or proteinaceous material. Probable associated atelectasis. Pleural space: See above. Heart: Stable. Bones/joints: Partially visualized soft tissue mass involving the right scapula measures approximately 6.7 cm, appears smaller compared to prior. Lytic lesion in the T2 vertebral body and left first rib redemonstrated. Soft tissues: Stable. Lymph nodes: Left tracheobronchial angle lymph node measures 1.4 cm in short axis diameter, decreased in size compared to 1.8 cm previously. Additional smaller mediastinal and hilar lymph nodes. Additional findings: Please refer to CT abdomen/pelvis report. IMPRESSION: 1. Possible small filling defects in the right upper lobe, cannot exclude PE. 2. Multiple bilateral pulmonary nodules, previous dominant nodule at the left lower lobe has decreased in size, now measuring 1.7 cm compared to 2. 1 cm previously.. Right upper lobe pleural-based mass appears increased in size compared to 12/27/16, measuring up to 4.4 cm. Additional pulmonary nodules in the right lung, previously not well seen due to atelectasis. 3. Interval decrease in size of loculated right pleural effusion. Right chest tube noted with the tip at the right lung base. Small focus of air at the lateral right basilar pleural space may related to intervention. Layering hyperdensity may represent hemorrhagic or proteinaceous material. Probable associated atelectasis. 4. Partially visualized soft tissue mass involving the right scapula measures approximately 6.7 cm, appears smaller compared to prior. 5. Additional findings, as above. [employer] 03/06/17 01:36 Call Doctor Regarding Above results, called Dr. Llanes on 03/06 01:35 (-04:00)
[2017-03-06] MEDS ORDERED: HEPARIN SODIUM,PORCINE 5,000 UNIT/ML 1 ML VIAL IV PRN (01:50)
[2017-03-06] MEDS ORDERED: HEPARIN SODIUM,PORCINE 5,000 UNIT/ML 1 ML VIAL IV ONE (01:50)
[2017-03-06] MEDS ORDERED: ONDANSETRON 4 MG/2 ML VIAL IVP PRN (01:56)
[2017-03-06] MEDS ORDERED: ACETAMINOPHEN TAB 325 MG TAB PO PRN (01:56)
[2017-03-06] MEDS ORDERED: NALOXONE 0.4 MG/ML 1 ML VIAL IV PRN (01:56)
--- NOTE | 2017-03-06 02:06 | CT ---
EXAM: CT Abdomen and Pelvis With Intravenous Contrast CLINICAL HISTORY: Reason: Pain TECHNIQUE: Axial computed tomography images of the abdomen and pelvis with intravenous contrast. CTDI is 19.71, 17.46, 19.19 mGy and DLP is 10 38. 77, 404.6, and 701.26 mGy-cm This CT exam was performed using one or more of the following dose reduction techniques: automated exposure control, adjustment of the mA and/or kV according to patient size, and/or use of iterative reconstruction technique. COMPARISON: CT 12/27/16. FINDINGS: Lower thorax: Please see CT chest report. ABDOMEN: Liver: Small low-density lesions in the liver measuring up to 1.8 cm, not seen on prior study and concerning for metastatic disease. Gallbladder and bile ducts: Distended gallbladder. Pancreas: Unremarkable. Spleen: Mild splenomegaly. 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 Kidneys and ureters: Redemonstration of large right heterogeneous enhancing renal mass measuring approximately 14.6 cm AP x 11.5 cm SI x 10. 8 cm transverse. There is adjacent stranding/fluid. Left upper pole renal hypodensity, similar to prior. Stomach and bowel: Scattered colonic diverticula. No evidence of bowel obstruction. Appendix: No findings to suggest acute appendicitis. PELVIS: Bladder: Unremarkable. Reproductive: Unremarkable as visualized. ABDOMEN and PELVIS: Intraperitoneal space: No free air. Bones/joints: Multiple soft tissue masses with associated lytic changes in the pelvis, the largest involving the right sacroiliac region measuring approximately 6 cm. Additional lesions involving the left iliac bone , right acetabulum and proximal right femur also noted. Lytic lesion in the L4 vertebral body as seen on prior. New or increased in size of lytic lesions in the L5 vertebral body and left pedicle also noted. Soft tissues: Unremarkable. Vasculature: Redemonstration of thrombus extending from the right renal vein into the IVC. Lymph nodes: Small mesenteric and retroperitoneal lymph nodes. IMPRESSION: 1. Redemonstration of large heterogeneous enhancing right renal mass with adjacent stranding/fluid. 2. Small low-density hepatic lesions in the liver, not seen on prior study and concerning for metastatic disease. 3. 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 4. Multiple soft tissue masses with associated lytic changes in the pelvis, the largest involving the right sacroiliac region measuring approximately 6 cm. Additional osseous metastases, as described. 5. Additional findings, as above.
[2017-03-06] MEDS: SODIUM CHLORIDE 0.9% 1,000 ML IV SCH (02:10)
[2017-03-06] MEDS: HEPARIN SODIUM,PORCINE/D5W PMX 25,000 UNIT in DEXTROSE/WATER 1 500ML.BAG IV SCH ×2 (02:12→16:07)
[2017-03-06] MEDS ORDERED: LORazepam 2 MG/ML SYRINGE IV STA (02:55)
[2017-03-06 03:24] LABS: Glucose,Whole Blood 150 mg/dL (75-99)
[2017-03-06] MEDS: HYDROcodone/APAP 10-325MG 1 EACH TAB PO PRN ×2 (03:28→10:10)
[2017-03-06 05:35] LABS: ALT 70 U/L (21-72); AST 59 U/L (17-59); Alkaline Phosphatase 108 U/L (38-126); Anion Gap 12 mmol/L; Blood Urea Nitrogen 15 mg/dL (9-20); Calcium 9.1 mg/dL (8.4-10.2); Carbon Dioxide 26 mmol/L (22-30); Chloride 96 mmol/L (98-107); Glucose 147 mg/dL (74-99); Magnesium 1.9 mg/dL (1.6-2.3); Non-African American GFR(MDRD) >60 (>60 ml/min/1.73 sqM); Phosphorous 3.9 mg/dL (2.5-4.5); Potassium 3.9 mmol/L (3.5-5.1); Sodium 134 mmol/L (137-145); Total Bilirubin 0.7 mg/dL (0.2-1.3); Total Protein 7.4 g/dL (6.3-8.2)
[2017-03-06] MEDS ORDERED: SODIUM CHLORIDE 0.9% 2,000 ML IV ONE (05:54)
[2017-03-06] MEDS: VOTRIENT 200 MG PO SCH (08:22)
[2017-03-06] MEDS: FAMOTIDINE 20 MG TAB PO SCH ×2 (11:25→19:48)
--- NOTE | 2017-03-06 12:25 | P.HPIM ---
History of Present Illness H&P Date: 03/06/17 Chief Complaint: Shortness of breath This is a 62-year-old gentleman with complex past medical history significant for metastatic renal cell carcinoma with diffuse bony metastasis Presented to the hospital with worsening shortness of breath. Patient said that he has been doing fairly well recently. He is getting chemotherapy with his oncologist that he is not clear what it is. He said for the past couple of days he has been having more bloating and what he describes as abdominal distention. He said that he was having normal bowel movement though with normal stool. Yesterday he was found to be more short of breath. He usually wear 3 L of oxygen at home via nasal cannula that his shortness of breath was not getting any better so he decided to come to the emergency room. In the emergency room, patient was noted to be hypoxic requiring higher oxygen up to 8 L. He underwent a computed tomography scan of the chest showing a right upper lobe pulmonary emboli. Patient is on anticoagulation with Rivaroxaban secondary to history of PE diagnosed approximately a month ago. He was also noted to have diffuse pulmonary nodules and significant metastatic disease described in the computed tomography scan report. Patient was admitted to the hospital for further evaluation. He is currently on IV heparin. He is feeling slightly better. He reports taking all of his medication as prescribed. He did not recognize xarelto when I mention it to him that he said that he is taking a blood thinner at home for sure. Review of Systems Review of system: 14 points review of systems were obtained and were negative except to what were mentioned in the HPI. Past Medical History Past Medical History: Cancer Additional Past Medical History / Comment(s): recent diagnosis metastatic renal cell cancer with mets to bone- right leg, right arm History of Any Multi-Drug Resistant Organisms: None Reported Past Surgical History: Ear Surgery, Orthopedic Surgery, Tonsillectomy Past Anesthesia/Blood Transfusion Reactions: No Reported Reaction Past Psychological History: No Psychological Hx Reported Smoking Status: Former smoker Past Alcohol Use History: None Reported Past Drug Use History: Marijuana Additional Drug Use History / Comment(s): pt states still smokes marijuana - Past Family History Father Family Medical History: Cancer Additional Family Medical History / Comment(s): dad 2016 from leukemia Mother Family Medical History: COPD, CVA/TIA Medications and Allergies Home Medications and Allergies Comment(s): General: The patient is awake and alert, in no distress Eye: extra-ocular movements are intact; there is normal conjunctiva bilaterally. . Neck: There is no tenderness or JVD. Cardiovascular: Normal S1-S2, no S3-S4, no murmurs. Respiratory: Lungs clear to auscultation bilaterally with no wheezes rhonchi or rales. Pigtail catheter to the right chest Gastrointestinal: Abdomen is soft, nontender, nondistended, with no organomegaly. Musculoskeletal: Normal ROM, no tenderness, There is no pedal edema. Neurological: There are no obvious motor or sensory deficits. Speech is normal. Skin: Skin is warm and dry and no rashes or lesions are noted. Home Medications Medication Instructions Recorded Confirmed Type fentaNYL 12MCG/HR PATCH [Duragesic 1 patch TRANSDERM Q72H 03/03/17 03/06/17 History 12MCG/HR] Pazopanib HCl [Votrient] 800 mg PO DAILY 03/06/17 03/06/17 History guaiFENesin [Mucinex] 600 mg PO Q12H 03/06/17 03/06/17 History Allergies Allergy/AdvReac Type Severity Reaction Status Date / Time No Known Allergies Allergy Verified 03/05/17 22:52 Physical Exam Vitals: Vital Signs Temp Pulse Resp BP Pulse Ox 03/06/17 10:00 80 20 133/89 98 03/06/17 09:00 108 H 20 118/67 98 03/06/17 08:00 99.4 F 93 24 150/91 97 03/06/17 07:00 97 27 H 134/91 99 03/06/17 06:00 97 15 135/87 99 03/06/17 05:30 111 H 21 135/87 98 03/06/17 05:00 125 H 18 128/80 98 03/06/17 04:30 100.6 F H 124 H 28 H 128/80 97 03/06/17 04:00 126 H 26 H 149/97 99 03/06/17 03:30 124 H 25 H 149/97 97 03/06/17 03:22 101.2 F H 129 H 26 H 99 03/06/17 02:19 90 18 124/76 96 Intake and Output 03/05/17 03/06/17 03/06/17 22:59 06:59 14:59 Intake Total 148.113 Output Total 150 Balance -1.887 Intake: Intake, IV Titration 148.113 Amount Heparin Sodium,Porcine/ 128.113 D5w Pmx 25,000 unit In Dextrose/Water 1 500ml. bag @ 18 UNITS/KG/HR 34. 94 mls/hr IV .[id number] DARRIN Rx#:[id number] Sodium Chloride 0.9% 1, 20 000 ml @ 20 mls/hr IV . Q24H DARRIN Rx#:[id number] Output: Urine 150 Other: Voiding Method Urinal Urinal Weight 94.8 kg General: The patient is awake and alert, in no distress Eye: extra-ocular movements are intact; there is normal conjunctiva bilaterally. . Neck: There is no tenderness or JVD. Cardiovascular: Normal S1-S2, no S3-S4, no murmurs. Respiratory: Lungs clear to auscultation bilaterally with no wheezes rhonchi or rales. Pigtail catheter to the right chest Gastrointestinal: Abdomen is soft, nontender, nondistended, with no organomegaly. Musculoskeletal: Normal ROM, no tenderness, There is no pedal edema. Neurological: There are no obvious motor or sensory deficits. Speech is normal. Skin: Skin is warm and dry and no rashes or lesions are noted. Results CBC & Chem 7: 03/05/17 23:15 03/06/17 03:53 Labs: Abnormal Lab Results - Last 24 Hours (Table) 03/06/17 03/06/17 03/06/17 Range/Units 03:23 03:53 03:53 APTT (22.0-30.0) sec Sodium 134 L (137-145) mmol/L Chloride 96 L (98-107) mmol/L Glucose 147 H (74-99) mg/dL POC Glucose (mg/dL) 150 H (75-99) mg/dL Plasma Lactic Acid Janusz 2.1 H (0.7-2.0) mmol/L 03/06/17 Range/Units 08:01 APTT 54.2 H (22.0-30.0) sec Sodium (137-145) mmol/L Chloride (98-107) mmol/L Glucose (74-99) mg/dL POC Glucose (mg/dL) (75-99) mg/dL Plasma Lactic Acid Janusz (0.7-2.0) mmol/L Thrombosis Risk Factor Assmnt - Choose All That Apply Any of the Below Risk Factors Present?: Yes Each Factor Represents 1 point: Age 41-60 years, Obesity (BMI >25) Other Risk Factors: Yes Each Risk Factor Represents 2 Points: Malignancy Each Risk Factor Represents 3 Points: History of DVT/PE Thrombosis Risk Factor Assessment Total Risk Factor Score: 7 Thrombosis Risk Factor Assessment Level: High Risk Assessment and Plan Plan: 1. Acute on chronic hypoxic respiratory failure 2. Pulmonary emboli most likely chronic 3. Renal cell carcinoma with diffuse metastatic disease/bony metastasis 4. Recurrent right malignant pleural effusion status post chronic pigtail to the right chest to be drained periodically as needed 5. Chronic pain syndrome secondary to metastatic disease This is a 62-year-old gentleman with complex past medical history noted above who presented to the hospital with worsening shortness of breath and hypoxia. Findings on computed tomography scan of the chest suggests for a possible right upper lobe pulmonary emboli that patient is already on anticoagulation with Rivaroxaban. I advised to discontinue the heparin drip tonight and resume his dose of Rivaroxaban at 20 mg at bedtime. Wean off oxygen as tolerated for O2 sat above 90%. Pulmonology and oncology consulted, appreciate recommendations. We will continue current regimen otherwise. Repeat lab work in the morning.
--- NOTE | 2017-03-06 16:30 | P.CNPUL ---
History of Present Illness Consult date: 03/06/17 Requesting physician: Anna Devlin Reason for consult: pulmonary embolism Chief complaint: Shortness of breath History of present illness: This is a 62-year-old white male with history of metastatic renal cell carcinoma with diffuse pulmonary and bony metastasis. Patient is receiving chemotherapy at present for his metastatic renal cell cancer. Over the last couple of days, patient has been experiencing bloating, and some abdominal distention. He was also complaining of shortness of breath. Patient is normally on 3 L nasal cannula, but since his shortness of breath was becoming more pronounced, patient presented to the ER, and he was noted to have abnormal CT of the chest suggestive of a right upper lobe pulmonary embolism. Patient has been on Xarelto for recently diagnosed right sided pulmonary embolism about a month ago. At any rate patient was also noted to have significant pulmonary nodules consistent with metastatic disease to the lungs. He was admitted, placed on heparin, and I was asked to see him on consultation. Patient apparently has been compliant with his anticoagulation therapy, however we are not certain whether he is actually taking Xarelto at this point are not. I discussed his condition briefly with Dr. Armando, and at this point I believe the patient may or may have not failed Xarelto therapy, but considering his presentation and considering the overall picture, I believe the patient would be better off eventually discharged home on Lovenox. In the meantime patient is to continue present therapy for his metastatic renal cell carcinoma. Review of Systems 14 point review of systems were obtained, please refer to pertinent positives and negatives in HPI. Past Medical History Past Medical History: Cancer Additional Past Medical History / Comment(s): recent diagnosis metastatic renal cell cancer with mets to bone- right leg, right arm History of Any Multi-Drug Resistant Organisms: None Reported Past Surgical History: Ear Surgery, Orthopedic Surgery, Tonsillectomy Past Anesthesia/Blood Transfusion Reactions: No Reported Reaction Past Psychological History: No Psychological Hx Reported Smoking Status: Former smoker Past Alcohol Use History: None Reported Past Drug Use History: Marijuana Additional Drug Use History / Comment(s): pt states still smokes marijuana - Past Family History Father Family Medical History: Cancer Additional Family Medical History / Comment(s): dad 2015 from leukemia Mother Family Medical History: COPD, CVA/TIA Medications and Allergies Home Medications Medication Instructions Recorded Confirmed Type fentaNYL 12MCG/HR PATCH [Duragesic 1 patch TRANSDERM Q72H 03/03/17 03/06/17 History 12MCG/HR] Pazopanib HCl [Votrient] 800 mg PO DAILY 03/06/17 03/06/17 History guaiFENesin [Mucinex] 600 mg PO Q12H 03/06/17 03/06/17 History Allergies Allergy/AdvReac Type Severity Reaction Status Date / Time No Known Allergies Allergy Verified 03/05/17 22:52 Physical Exam Vitals: Vital Signs Temp Pulse Pulse Resp BP BP Pulse Ox 03/06/17 15:52 97.4 F L 87 18 135/88 98 03/06/17 12:00 98.2 F 87 23 137/79 99 03/06/17 10:00 80 20 133/89 98 03/06/17 09:00 108 H 20 118/67 98 03/06/17 08:00 99.4 F 93 24 150/91 97 03/06/17 07:00 97 27 H 134/91 99 03/06/17 06:00 97 15 135/87 99 03/06/17 05:30 111 H 21 135/87 98 03/06/17 05:00 125 H 18 128/80 98 03/06/17 04:30 100.6 F H 124 H 28 H 128/80 97 03/06/17 04:00 126 H 26 H 149/97 99 03/06/17 03:30 124 H 25 H 149/97 97 03/06/17 03:22 101.2 F H 129 H 26 H 99 03/06/17 02:19 90 18 124/76 96 Intake and Output 03/06/17 03/06/17 03/06/17 06:59 14:59 22:59 Intake Total 148.113 20 358.135 Output Total 150 Balance -1.887 20 358.135 Intake: Intake, IV Titration 148.113 20 358.135 Amount Heparin Sodium,Porcine/ 128.113 358.135 D5w Pmx 25,000 unit In Dextrose/Water 1 500ml. bag @ 18 UNITS/KG/HR 34. 94 mls/hr IV .[id number] DARRIN Rx#:[id number] Sodium Chloride 0.9% 1, 20 20 000 ml @ 20 mls/hr IV . Q24H DARRIN Rx#:[id number] Output: Urine 150 Other: Voiding Method Urinal Urinal Weight 94.8 kg Physical Exam: Revealed a 62-year-old white male in no distress. HEENT:[Neck is supple.] [No neck masses.] [No thyromegaly.] [No JVD.] Chest: [Diminished breath sounds at the bases, no crackles or rhonchi or wheezes , pigtail catheter noted in the right chest for recent pleural effusion. Cardiac Exam: [Normal S1 and S2, no S3 gallop, no murmur.] Abdomen: [Soft, nontender, no megaly, no rebound, no guarding, normal bowel sounds.] Extremities: [No clubbing, no edema, no cyanosis.] Neurological Exam: [No focal neurologic deficit.] Results - Laboratory Findings CBC and BMP: 03/05/17 23:15 03/06/17 03:53 PT/INR, D-dimer PT 12.1 sec (9.0-12.0) H 03/05/17 23:15 INR 1.2 (<1.1) 03/05/17 23:15 Abnormal lab findings: Abnormal Labs 03/06/17 03/06/17 03/06/17 03:23 03:53 03:53 APTT Sodium 134 L Chloride 96 L Glucose 147 H POC Glucose (mg/dL) 150 H Plasma Lactic Acid Janusz 2.1 H 03/06/17 08:01 APTT 54.2 H Sodium Chloride Glucose POC Glucose (mg/dL) Plasma Lactic Acid Janusz - Diagnostic Findings CT scan - chest: image reviewed (I reviewed the CT of the chest, and I agree with the radiologist that the CT is suggestive and suspicious for possible right upper lobe pulmonary embolism. There is definite filling defect noted.) Assessment and Plan Plan: Impression: Acute on chronic hypoxic respiratory failure multifactorial, mostly secondary to acute pulmonary embolism, metastatic disease to the lungs, right- sided pleural effusion requiring pigtail catheter placement today recently, and the effusion was malignant in nature. Recommendation: Agree with the treatment plan for pulmonary embolism utilizing heparin, patient could be switched to subcu Lovenox or could be placed on Xarelto, I really do not believe that this is a failure to therapy with Xarelto , not to mention the patient may have not been compliant with it to begin with. Reviewed all meds, and we'll continue to follow. Time with Patient: Greater than 30
--- NOTE | 2017-03-06 16:40 | P.CONS ---
History of Present Illness - Reason for Consult Consult date: 03/06/17 metastatic renal cell carcinoma Requesting physician: Joseph Bustos - Chief Complaint SOB, STU - History of Present Illness Mr. Givens has recently started pazopanib on 02/26/17 for metastatic renal cell carcinoma. He initially presented with acute onset hematuria 12/19/16. He was treateed with Bactrim. US on 12/22/16 revealed a 13.2 x 11.6 cm mass associated with the right kidney, possible lobulated mass in the bladder. Urology performed TRUS which was normal. PSA was negative, CT CAP on 12/27/16 showed a left tracheobronchial node 1.4 cm, multiple bilateral lung nodules, a pleural based mass in the posterolateral RUL (3.2 cm x 1.1 cm) a suspicious focus in the right hepatic dome, a 13.8 x 14.5 cm hypervascular mass associated with the right kidney with a thrombus extending into the right renal vein, lesions were also noted in the left iliac crest, left L4, right acromion, along with a soft tissue mass involving the right latissimus dorsi muscle. Biopsy of the rt shoulder mass done on 01/11 revealed poorly differentiated carcinoma most consistent with metastatic renal cell. He was recommended to start treatment with pazopanib and bisphosphonate therapy for bone mets but refused it, he continued with dietary modifications and alkaline water. He had an opinion at [facility], where the same recommendations were given. He decided to have radiation shoulder 1st due to the pain. While on radiation he was admitted with progressive pleural effusions, also found to have a PE. PleurX catheter was placed and he was discharged on Xarelto. He completed radiation 02/14/17. He was seen by Orthopedic Onc at [facility] for a large lytic lesion in the right femur with no plans at this time for surgery. He started pazopanib 02/26, he was not interested in starting xgeva yet. He was seen on 03/03 with no c/o r/ t panopanib. He states that over the weekend he was having progressive SOB, fever and chills, he had hemoptysis as well but was not sure if that was r/t removal of humidification from his O2. He still feels that the pazopanib is working as the SQ masses are smaller and softer. His breathing is a little better since admit, no nausea, indigestion, diarrhea, dysuria, pain is currently controlled. Review of Systems All systems: negative Constitutional: Reports as per HPI Past Medical History Past Medical History: Cancer Additional Past Medical History / Comment(s): recent diagnosis metastatic renal cell cancer with mets to bone- right leg, right arm History of Any Multi-Drug Resistant Organisms: None Reported Past Surgical History: Ear Surgery, Orthopedic Surgery, Tonsillectomy Past Anesthesia/Blood Transfusion Reactions: No Reported Reaction Past Psychological History: No Psychological Hx Reported Smoking Status: Former smoker Past Alcohol Use History: None Reported Past Drug Use History: Marijuana Additional Drug Use History / Comment(s): pt states still smokes marijuana - Past Family History Father Family Medical History: Cancer Additional Family Medical History / Comment(s): dad 2015 from leukemia Mother Family Medical History: COPD, CVA/TIA Medications and Allergies Home Medications Medication Instructions Recorded Confirmed Type fentaNYL 12MCG/HR PATCH [Duragesic 1 patch TRANSDERM Q72H 03/03/17 03/06/17 History 12MCG/HR] Pazopanib HCl [Votrient] 800 mg PO DAILY 03/06/17 03/06/17 History guaiFENesin [Mucinex] 600 mg PO Q12H 03/06/17 03/06/17 History Allergies Allergy/AdvReac Type Severity Reaction Status Date / Time No Known Allergies Allergy Verified 03/05/17 22:52 Physical Exam Vitals: Vital Signs Temp Pulse Pulse Resp BP BP Pulse Ox 03/06/17 15:52 97.4 F L 87 18 135/88 98 03/06/17 12:00 98.2 F 87 23 137/79 99 03/06/17 10:00 80 20 133/89 98 03/06/17 09:00 108 H 20 118/67 98 03/06/17 08:00 99.4 F 93 24 150/91 97 03/06/17 07:00 97 27 H 134/91 99 03/06/17 06:00 97 15 135/87 99 03/06/17 05:30 111 H 21 135/87 98 03/06/17 05:00 125 H 18 128/80 98 03/06/17 04:30 100.6 F H 124 H 28 H 128/80 97 03/06/17 04:00 126 H 26 H 149/97 99 03/06/17 03:30 124 H 25 H 149/97 97 03/06/17 03:22 101.2 F H 129 H 26 H 99 03/06/17 02:19 90 18 124/76 96 Intake and Output 03/06/17 03/06/17 03/06/17 06:59 14:59 22:59 Intake Total 148.113 20 358.135 Output Total 150 Balance -1.887 20 358.135 Intake: Intake, IV Titration 148.113 20 358.135 Amount Heparin Sodium,Porcine/ 128.113 358.135 D5w Pmx 25,000 unit In Dextrose/Water 1 500ml. bag @ 18 UNITS/KG/HR 34. 94 mls/hr IV .[id number] DARRIN Rx#:[id number] Sodium Chloride 0.9% 1, 20 20 000 ml @ 20 mls/hr IV . Q24H DARRIN Rx#:[id number] Output: Urine 150 Other: Voiding Method Urinal Urinal Weight 94.8 kg - Constitutional General appearance: cooperative, mild distress, obese - EENT Eyes: anicteric sclerae, normal appearance ENT: hearing grossly normal, normal oropharynx - Neck Neck: no lymphadenopathy - Respiratory Respiratory: bilateral: CTA - Cardiovascular Heart sounds: normal: S1, S2 leg Peripheral Edema: bilateral: Trace - Gastrointestinal General gastrointestinal: no absent bowel sounds, no decreased bowel sounds, no distended, no hepatomegaly, no hyperactive bowel sounds, normal bowel sounds, no organomegaly, no rigid, no scaphoid, soft, no splenomegaly, no tenderness, no umbilical hernia, no ventral hernia - Integumentary Pt has subcutaneous/MS mets palpable on forehead, leg and right shoulder, smaller and softer then previously Integumentary: pale - Neurologic Neurologic: CNII-XII intact - Musculoskeletal Musculoskeletal: strength equal bilaterally - Psychiatric Psychiatric: A&O x's 3, appropriate affect, intact judgment & insight Results CBC & Chem 7: 03/05/17 23:15 03/06/17 03:53 Labs: Abnormal Lab Results - Last 24 Hours (Table) 03/06/17 03/06/17 03/06/17 Range/Units 03:23 03:53 03:53 APTT (22.0-30.0) sec Sodium 134 L (137-145) mmol/L Chloride 96 L (98-107) mmol/L Glucose 147 H (74-99) mg/dL POC Glucose (mg/dL) 150 H (75-99) mg/dL Plasma Lactic Acid Janusz 2.1 H (0.7-2.0) mmol/L 03/06/17 Range/Units 08:01 APTT 54.2 H (22.0-30.0) sec Sodium (137-145) mmol/L Chloride (98-107) mmol/L Glucose (74-99) mg/dL POC Glucose (mg/dL) (75-99) mg/dL Plasma Lactic Acid Janusz (0.7-2.0) mmol/L CT scan - abdomen: report reviewed CT scan - chest: report reviewed CT scan - pelvis: report reviewed Assessment and Plan (1) Metastatic carcinoma Status: Acute (2) Renal cell carcinoma Status: Acute (3) Dyspnea Narrative/Plan: Case was reviewed with Dr. Washington, he will review CTA and compare with previous. We await his opinion as to if he suspects PE while on anticoagulation and adjustments in medications will be made accordingly. Cont heparin drip for now Status: Acute Plan: CT reports reviewed, plan is to continue Votrient at this time. Pt is having notable response in the SQ/MS palpable masses. He will cont to be followed closely.
[2017-03-06] MEDS ORDERED: CALCIUM CARBONATE 500 MG CHEWABLE PO PRN (20:55)
[2017-03-06] MEDS: CALCIUM CARBONATE 500 MG CHEWABLE PO PRN ×2 (21:08→21:58)
[2017-03-07] MEDS: SODIUM CHLORIDE 0.9% 1,000 ML IV SCH (00:13)
[2017-03-07] MEDS: HEPARIN SODIUM,PORCINE/D5W PMX 25,000 UNIT in DEXTROSE/WATER 1 500ML.BAG IV SCH (05:06)
[2017-03-07 07:23] LABS: Basophils % (A) 0 %; CHCM 33.2; Eosinophils % (A) 0 %; HCT 30.2 % (39.0-53.0); HDW 3.07; HGB 10.3 gm/dL (13.0-17.5); Luc # (Auto) 0.09; Luc % (Auto) 1; Lymphocytes # (A) 0.6 k/uL (1.0-4.8); Lymphocytes % (A) 8 %; MCH 28.7 pg (25.0-35.0); MCV 84.4 fL (80.0-100.0); Mean Platelet Volume 7.1; Monocytes # (A) 0.4 k/uL (0-1.0); Monocytes % (A) 5 %; Neutrophils % (A) 86 %; RBC 3.57 m/uL (4.30-5.90); RDW 14.8 % (11.5-15.5); WBC 8.2 k/uL (3.8-10.6); WBC (Perox) 8.48
[2017-03-07] MEDS ORDERED: PANTOPRAZOLE 40 MG TABLET PO SCH (07:30)
[2017-03-07 07:59] LABS: ALT 60 U/L (21-72); AST 77 U/L (17-59); Alkaline Phosphatase 91 U/L (38-126); Anion Gap 8 mmol/L; Blood Urea Nitrogen 13 mg/dL (9-20); Calcium 8.5 mg/dL (8.4-10.2); Carbon Dioxide 27 mmol/L (22-30); Chloride 102 mmol/L (98-107); Glucose 147 mg/dL (74-99); Non-African American GFR(MDRD) >60 (>60 ml/min/1.73 sqM); Potassium 4.2 mmol/L (3.5-5.1); Sodium 137 mmol/L (137-145); Total Bilirubin 0.8 mg/dL (0.2-1.3); Total Protein 6.6 g/dL (6.3-8.2)
[2017-03-07] MEDS: FAMOTIDINE 20 MG TAB PO SCH (08:59)
[2017-03-07] MEDS: VOTRIENT 200 MG PO SCH (08:59)
[2017-03-07] MEDS ORDERED: ONDANSETRON 4 MG/2 ML VIAL IVP PRN (11:55)
--- NOTE | 2017-03-07 13:07 | P.PN ---
Subjective Patient was having problems with nausea this morning. He did not take his oral chemotherapy. He had a bowel movement earlier that he described as hard. Objective - Vital Signs Vital signs: Vital Signs Temp 97.6 F 03/07/17 08:00 Pulse 77 03/07/17 11:56 Resp 16 03/07/17 12:00 BP 157/91 03/07/17 11:56 Pulse Ox 99 03/07/17 11:56 Intake & Output 03/06/17 03/07/17 03/07/17 18:59 06:59 18:59 Intake Total 243.637 5886.638 120 Output Total 300 1370 300 Balance 387.935 277.638 -180 Weight 96.1 kg 96.1 kg Intake: IV 109.8 594 Heparin Sodium,Porcine/ 69.8 374 D5w Pmx 25,000 unit In Dextrose/Water 1 500ml. bag @ 18 UNITS/KG/HR 34. 94 mls/hr IV .[id number] DARRIN Rx#:[id number] Sodium Chloride 0.9% 1, 40 220 000 ml @ 20 mls/hr IV . Q24H DARRIN Rx#:[id number] Intake, IV Titration 378.135 453.638 Amount Heparin Sodium,Porcine/ 358.135 453.638 D5w Pmx 25,000 unit In Dextrose/Water 1 500ml. bag @ 18 UNITS/KG/HR 34. 94 mls/hr IV .[id number] DARRIN Rx#:[id number] Sodium Chloride 0.9% 1, 20 000 ml @ 20 mls/hr IV . Q24H DARRIN Rx#:[id number] Oral 200 600 120 Output: Urine 300 1370 300 Other: Voiding Method Urinal Urinal Urinal # Voids 1 - Exam General: The patient is awake and alert, in no distress Eye: there is normal conjunctiva bilaterally. Neck: The neck is supple, there is no JVD. Cardiovascular: Normal S1-S2, no S3-S4, no murmurs. Respiratory: Lungs clear to auscultation bilaterally Gastrointestinal: Abdomen is soft, nontender Musculoskeletal: There is no pedal edema. Neurological:. Speech is normal. Skin: Skin is warm and dry - Labs CBC & Chem 7: 03/07/17 06:29 03/07/17 06:29 Labs: Abnormal Lab Results - Last 24 Hours (Table) 05/02/17 05/02/17 05/02/17 Range/Units 06:29 06:29 06:29 RBC 3.57 L (4.30-5.90) m/uL Hgb 10.3 L (13.0-17.5) gm/dL Hct 30.2 L (39.0-53.0) % Plt Count 108 L D (150-450) k/uL Lymphocytes # 0.6 L (1.0-4.8) k/uL APTT 55.5 H (22.0-30.0) sec Glucose 147 H (74-99) mg/dL AST 77 H (17-59) U/L Albumin 3.1 L (3.5-5.0) g/dL Assessment and Plan Plan: 1. Acute on chronic hypoxic respiratory failure 2. Pulmonary emboli most likely chronic on anticoagulation with Rivaroxaban as an outpatient 3. Renal cell carcinoma with diffuse metastatic disease/bony metastasis 4. Recurrent right malignant pleural effusion status post chronic pigtail to the right chest to be drained periodically as needed 5. Chronic pain syndrome secondary to metastatic disease This is a 62-year-old gentleman with complex past medical history noted above who presented to the hospital with worsening shortness of breath and hypoxia. Findings on computed tomography scan of the chest suggests for a possible right upper lobe pulmonary emboli that patient is already on anticoagulation with Rivaroxaban. I advise to discontinue the heparin drip tonight and resume his dose of Rivaroxaban at 20 mg at bedtime. Wean off oxygen as tolerated for O2 sat above 90%. Pulmonology and oncology consulted, appreciate recommendations. Encouraged the patient to take his Votrient dose for today. We will continue current regimen otherwise. Repeat lab work in the morning.
--- NOTE | 2017-03-07 15:01 | P.PN ---
Subjective Principal diagnosis: Acute pulmonary embolism This is a 62-year-old white male with history of metastatic renal cell carcinoma with diffuse pulmonary and bony metastasis. Patient is receiving chemotherapy at present for his metastatic renal cell cancer. Over the last couple of days, patient has been experiencing bloating, and some abdominal distention. He was also complaining of shortness of breath. Patient is normally on 3 L nasal cannula, but since his shortness of breath was becoming more pronounced, patient presented to the ER, and he was noted to have abnormal CT of the chest suggestive of a right upper lobe pulmonary embolism. Patient has been on Xarelto for recently diagnosed right sided pulmonary embolism about a month ago. At any rate patient was also noted to have significant pulmonary nodules consistent with metastatic disease to the lungs. He was admitted, placed on heparin, and I was asked to see him on consultation. Patient apparently has been compliant with his anticoagulation therapy, however we are not certain whether he is actually taking Xarelto at this point are not. I discussed his condition briefly with Dr. Armando, and at this point I believe the patient may or may have not failed Xarelto therapy, but considering his presentation and considering the overall picture, I believe the patient would be better off eventually discharged home on Lovenox. In the meantime patient is to continue present therapy for his metastatic renal cell carcinoma. Patient was reevaluated today on 03/07/2017, continues to do relatively well, less short of breath, remains on nasal cannula, remains on heparin. PTT today is 55.5. Basic metabolic profile is normal CBC is relatively normal hemoglobin is 10.3. Objective - Vital Signs Vital signs: Vital Signs Temp 97.6 F 03/07/17 08:00 Pulse 77 03/07/17 11:56 Resp 16 03/07/17 12:00 BP 157/91 03/07/17 11:56 Pulse Ox 99 03/07/17 11:56 Intake & Output 03/06/17 03/07/17 03/07/17 18:59 06:59 18:59 Intake Total 396.377 1011.638 120 Output Total 300 1370 300 Balance 387.935 277.638 -180 Weight 96.1 kg 96.1 kg Intake: IV 109.8 594 Heparin Sodium,Porcine/ 69.8 374 D5w Pmx 25,000 unit In Dextrose/Water 1 500ml. bag @ 18 UNITS/KG/HR 34. 94 mls/hr IV .[id number] DARRIN Rx#:[id number] Sodium Chloride 0.9% 1, 40 220 000 ml @ 20 mls/hr IV . Q24H DARRIN Rx#:[id number] Intake, IV Titration 378.135 453.638 Amount Heparin Sodium,Porcine/ 358.135 453.638 D5w Pmx 25,000 unit In Dextrose/Water 1 500ml. bag @ 18 UNITS/KG/HR 34. 94 mls/hr IV .[id number] DARRIN Rx#:[id number] Sodium Chloride 0.9% 1, 20 000 ml @ 20 mls/hr IV . Q24H DARRIN Rx#:[id number] Oral 200 600 120 Output: Urine 300 1370 300 Other: Voiding Method Urinal Urinal Urinal # Voids 1 1 - Exam Physical Exam: Revealed a 62-year-old white male in no distress. HEENT:[Neck is supple.] [No neck masses.] [No thyromegaly.] [No JVD.] Chest: [Diminished breath sounds at the bases, no crackles or rhonchi or wheezes , pigtail catheter noted in the right chest for recent pleural effusion. Cardiac Exam: [Normal S1 and S2, no S3 gallop, no murmur.] Abdomen: [Soft, nontender, no megaly, no rebound, no guarding, normal bowel sounds.] Extremities: [No clubbing, no edema, no cyanosis.] Neurological Exam: [No focal neurologic deficit.] - Labs CBC & Chem 7: 03/07/17 06:29 03/07/17 06:29 Labs: Abnormal Lab Results - Last 24 Hours (Table) 03/07/17 03/07/17 03/07/17 Range/Units 06:29 06:29 06:29 RBC 3.57 L (4.30-5.90) m/uL Hgb 10.3 L (13.0-17.5) gm/dL Hct 30.2 L (39.0-53.0) % Plt Count 108 L D (150-450) k/uL Lymphocytes # 0.6 L (1.0-4.8) k/uL APTT 55.5 H (22.0-30.0) sec Glucose 147 H (74-99) mg/dL AST 77 H (17-59) U/L Albumin 3.1 L (3.5-5.0) g/dL Assessment and Plan Plan: Impression: Acute on chronic hypoxic respiratory failure multifactorial, mostly secondary to acute pulmonary embolism, metastatic disease to the lungs, right- sided pleural effusion requiring pigtail catheter placement today recently, and the effusion was malignant in nature. Recommendation: Continue present treatment plan for pulmonary embolism utilizing heparin, patient could be switched to subcu Lovenox or could be placed on Xarelto, I really do not believe that this is a failure to therapy with Xarelto, not to mention the patient may have not been compliant with it to begin with. Reviewed all meds, and we'll continue to follow. Time with Patient: Less than 30
[2017-03-07] MEDS: DOCUSATE 100 MG CAP PO SCH (20:01)
[2017-03-07] MEDS ORDERED: RIVAROXABAN 10 MG TAB PO STA (20:48)
--- NOTE | 2017-03-08 00:20 | P.PN ---
Subjective Pt is less SOB, and has been transferred from the ICU. He is c/o abdominal discomfort and restless. He states he can't take his pills, due to the abdominal discomfort, though he has no actual difficulty in swallowing. No vomitting, diarrhea or bleeding Objective - Vital Signs Vital signs: Vital Signs Temp 98.8 F 03/07/17 21:00 Pulse 93 03/07/17 20:04 Resp 18 03/07/17 20:04 BP 136/80 03/07/17 20:04 Pulse Ox 96 03/07/17 20:04 Intake & Output 03/07/17 03/07/17 03/08/17 06:59 18:59 06:59 Intake Total 1647.638 730 200 Output Total 1370 300 Balance 277.638 430 200 Weight 96.1 kg 96.1 kg Intake: IV 594 250 80 Heparin Sodium,Porcine/ 374 250 D5w Pmx 25,000 unit In Dextrose/Water 1 500ml. bag @ 18 UNITS/KG/HR 34. 94 mls/hr IV .[id number] DARRIN Rx#:[id number] Sodium Chloride 0.9% 1, 220 80 000 ml @ 20 mls/hr IV . Q24H DARRIN Rx#:[id number] Intake, IV Titration 453.638 Amount Heparin Sodium,Porcine/ 453.638 D5w Pmx 25,000 unit In Dextrose/Water 1 500ml. bag @ 18 UNITS/KG/HR 34. 94 mls/hr IV .[id number] DARRIN Rx#:[id number] Oral 600 480 120 Output: Urine 1370 300 Other: Voiding Method Urinal Urinal # Voids 1 1 200 # Bowel Movements 0 - Constitutional General appearance: Present: mild distress - EENT Eyes: Present: PERRLA ENT: Present: hearing grossly normal, normal oropharynx - Respiratory Respiratory: bilateral: diminished - Cardiovascular Rhythm: regular Heart sounds: normal: S1, S2 - Gastrointestinal General gastrointestinal: Present: normal bowel sounds, soft - Integumentary Integumentary Comment(s): skin nodules on fforehead definitely smaller - Neurologic Neurologic: Present: CNII-XII intact - Musculoskeletal Musculoskeletal: Present: generalized weakness - Psychiatric Psychiatric: Present: A&O x's 3 - Labs CBC & Chem 7: 03/07/17 06:29 03/07/17 06:29 Labs: Abnormal Lab Results - Last 24 Hours (Table) 03/07/17 03/07/17 03/07/17 Range/Units 06:29 06:29 06:29 RBC 3.57 L (4.30-5.90) m/uL Hgb 10.3 L (13.0-17.5) gm/dL Hct 30.2 L (39.0-53.0) % Plt Count 108 L D (150-450) k/uL Lymphocytes # 0.6 L (1.0-4.8) k/uL APTT 55.5 H (22.0-30.0) sec Glucose 147 H (74-99) mg/dL AST 77 H (17-59) U/L Albumin 3.1 L (3.5-5.0) g/dL Assessment and Plan (1) Abdominal pain Narrative/Plan: This is of new onset. Abdominal exan is not indicative of an acute abdomen. CT AP from 03/06/17 did not show any etiology for the same, with no evidence of perforation or enteritis/gastritis. Clinically it is s/o gastritis. Current PO meds are not effective. I will start IV protonix. PO pepcid and protonix will be discontinued Status: Acute (2) Renal cell carcinoma Narrative/Plan: The pt is tolerating Votrient well so far. He is actually having a repsonse clinically, after only a few days. He was advised that it is imperative he continue his meds, as long as he is tolerating them ok. Status: Acute (3) Acute pulmonary embolism Narrative/Plan: Pulmonary recommendations reviewed. Discharge on Lovenox appears reasonable. I will have the office check for coverage Status: Acute
[2017-03-08] MEDS: SODIUM CHLORIDE 0.9% 1,000 ML IV SCH (06:27)
[2017-03-08 06:33] LABS: Basophils % (A) 0 %; CH 27.6; CHCM 31.8; Eosinophils # (A) 0.1 k/uL (0-0.7); Eosinophils % (A) 1 %; HCT 30.7 % (39.0-53.0); HDW 2.96; HGB 9.9 gm/dL (13.0-17.5); Hypochromasia Slight; Luc % (Auto) 1; Lymphocytes # (A) 0.6 k/uL (1.0-4.8); Lymphocytes % (A) 7 %; MCH 27.9 pg (25.0-35.0); MCHC 32.1 g/dL (31.0-37.0); Mean Platelet Volume 7.9; Monocytes # (A) 0.3 k/uL (0-1.0); Monocytes % (A) 4 %; Neutrophils # (A) 6.7 k/uL (1.3-7.7); Neutrophils % (A) 86 %; RBC 3.53 m/uL (4.30-5.90); WBC 7.8 k/uL (3.8-10.6); WBC (Perox) 8.65
[2017-03-08 06:46] LABS: ALT 69 U/L (21-72); AST 79 U/L (17-59); Alkaline Phosphatase 100 U/L (38-126); Anion Gap 6 mmol/L; Blood Urea Nitrogen 13 mg/dL (9-20); Calcium 8.4 mg/dL (8.4-10.2); Carbon Dioxide 30 mmol/L (22-30); Chloride 103 mmol/L (98-107); Glucose 128 mg/dL (74-99); Magnesium 2.1 mg/dL (1.6-2.3); Non-African American GFR(MDRD) >60 (>60 ml/min/1.73 sqM); Potassium 4.2 mmol/L (3.5-5.1); Sodium 139 mmol/L (137-145); Total Bilirubin 0.8 mg/dL (0.2-1.3); Total Protein 6.3 g/dL (6.3-8.2)
[2017-03-08] MEDS: VOTRIENT 200 MG PO SCH (07:04)
[2017-03-08] MEDS: RIVAROXABAN 10 MG TAB PO SCH (08:10)
[2017-03-08] MEDS: DOCUSATE 100 MG CAP PO SCH ×2 (08:11→20:38)
[2017-03-08] MEDS: PANTOPRAZOLE 40 MG/10 ML VIAL IVP SCH (08:11)
--- NOTE | 2017-03-08 09:28 | XR ---
2 view abdomen HISTORY: Abdominal pain 2 views of the abdomen on 3 images correlated to prior abdomen February, CT abdomen pelvis one March 2017 Pleural drainage catheter is noted on the right as on prior exam. Persistent right effusion and assoc iated increased density at the right lung base obscures the right hemidiaphragm. There is no bowel ob struction or pneumoperitoneum. No pathologic calcification. Lytic bone lesions not well seen on plain film. IMPRESSION: No significant change
[2017-03-08] MEDS: HYDROcodone/APAP 10-325MG 1 EACH TAB PO PRN ×2 (10:57→16:54)
--- NOTE | 2017-03-08 12:05 | P.PN ---
Subjective Patient is doing fairly well today. He is complaining of worsening right upper quadrant pain. He had a bowel movement today and yesterday. Significant. The patient was examined this morning by the meat and poultry inspector. Objective - Vital Signs Vital signs: Vital Signs Temp 97.9 F 03/08/17 08:00 Pulse 79 03/08/17 08:00 Resp 16 03/08/17 08:00 BP 138/86 03/08/17 08:00 Pulse Ox 99 03/08/17 08:00 Intake & Output 03/07/17 03/08/17 03/08/17 18:59 06:59 18:59 Intake Total 730 200 Output Total 300 500 Balance 430 -300 Weight 96.1 kg 96.4 kg Intake: IV 250 80 Heparin Sodium,Porcine/ 250 D5w Pmx 25,000 unit In Dextrose/Water 1 500ml. bag @ 18 UNITS/KG/HR 34. 94 mls/hr IV .[id number] DARRIN Rx#:[id number] Sodium Chloride 0.9% 1, 80 000 ml @ 20 mls/hr IV . Q24H DARRIN Rx#:[id number] Oral 480 120 Output: Urine 300 500 Other: Voiding Method Urinal Urinal # Voids 1 1 # Bowel Movements 0 - Exam General: The patient is awake and alert, in no distress Eye: there is normal conjunctiva bilaterally. Neck: The neck is supple, there is no JVD. Cardiovascular: Normal S1-S2, no S3-S4, no murmurs. Respiratory: Lungs clear to auscultation bilaterally Gastrointestinal: Abdomen is soft Musculoskeletal: There is no pedal edema. Neurological:. Speech is normal. Skin: Skin is warm and dry - Labs CBC & Chem 7: 03/08/17 06:06 03/08/17 06:06 Labs: Abnormal Lab Results - Last 24 Hours (Table) 03/08/17 03/08/17 Range/Units 06:06 06:06 RBC 3.53 L (4.30-5.90) m/uL Hgb 9.9 L (13.0-17.5) gm/dL Hct 30.7 L (39.0-53.0) % Plt Count 115 L (150-450) k/uL Lymphocytes # 0.6 L (1.0-4.8) k/uL Glucose 128 H (74-99) mg/dL AST 79 H (17-59) U/L Albumin 2.9 L (3.5-5.0) g/dL Assessment and Plan Plan: 1. Acute on chronic hypoxic respiratory failure 2. Pulmonary emboli most likely chronic on anticoagulation with Rivaroxaban as an outpatient 3. Renal cell carcinoma with diffuse metastatic disease/bony metastasis 4. Recurrent right malignant pleural effusion status post chronic pigtail to the right chest to be drained periodically as needed 5. Chronic pain syndrome secondary to metastatic disease 6. Worsening right upper quadrant pain with distended gallbladder noted on computed tomography scan of the abdomen. Obtain ultrasound for further evaluation. This is a 62-year-old gentleman with complex past medical history noted above who presented to the hospital with worsening shortness of breath and hypoxia. Findings on computed tomography scan of the chest suggests for a possible right upper lobe pulmonary emboli that patient is already on anticoagulation with Rivaroxaban. Pulmonology and oncology consulted, appreciate recommendations. Continue Votrient as recommended by oncology. We will continue current regimen otherwise. Repeat lab work in the morning. Today, we discussed options of anticoagulation including Lovenox. Patient does not want to do an injection at home. He said that he is not comfortable with needles. He would rather take Rivaroxaban daily. I would discuss with oncology further. Possible discharge home tomorrow.
--- NOTE | 2017-03-08 12:56 | P.PN ---
Subjective Principal diagnosis: Acute pulmonary embolism This is a 62-year-old white male with history of metastatic renal cell carcinoma with diffuse pulmonary and bony metastasis. Patient is receiving chemotherapy at present for his metastatic renal cell cancer. Over the last couple of days, patient has been experiencing bloating, and some abdominal distention. He was also complaining of shortness of breath. Patient is normally on 3 L nasal cannula, but since his shortness of breath was becoming more pronounced, patient presented to the ER, and he was noted to have abnormal CT of the chest suggestive of a right upper lobe pulmonary embolism. Patient has been on Xarelto for recently diagnosed right sided pulmonary embolism about a month ago. At any rate patient was also noted to have significant pulmonary nodules consistent with metastatic disease to the lungs. He was admitted, placed on heparin, and I was asked to see him on consultation. Patient apparently has been compliant with his anticoagulation therapy, however we are not certain whether he is actually taking Xarelto at this point are not. I discussed his condition briefly with Dr. Armando, and at this point I believe the patient may or may have not failed Xarelto therapy, but considering his presentation and considering the overall picture, I believe the patient would be better off eventually discharged home on Lovenox. In the meantime patient is to continue present therapy for his metastatic renal cell carcinoma. Patient was reevaluated today on 03/07/2017, continues to do relatively well, less short of breath, remains on nasal cannula, remains on heparin. PTT today is 55.5. Basic metabolic profile is normal CBC is relatively normal hemoglobin is 10.3. Patient was reevaluated today on 03/08/2017, doing well from the pulmonary perspective, however he seems to have significant amount of pain and tenderness in the right upper quadrant. the area of pain is below where the Pleurx catheter is placed, and it is mostly over the gallbladder and liver area. discussed that specifically with the admitting physician Davin and ultrasound of the gallbladder was ordered. again pulmonary-clarke patient could be cleared for discharge planning, but before any discharge planning I believe his right upper quadrant is a bit concerning although the patient may have liver metastasis from his renal cell carcinoma, and his CT of the abdomen on admission showed nonspecific abnormality in the gallbladder. labs showed normal CBC no evidence of leukocytosis hemoglobin is 9.9 electrolytes and basic metaboic profile are nomal. renal profile is also normal. Objective - Vital Signs Vital signs: Vital Signs Temp 97.9 F 03/08/17 08:00 Pulse 82 03/08/17 12:00 Resp 16 03/08/17 12:00 BP 114/72 03/08/17 12:00 Pulse Ox 98 03/08/17 12:00 Intake & Output 03/07/17 03/08/17 03/08/17 18:59 06:59 18:59 Intake Total 730 200 Output Total 300 500 Balance 430 -300 Weight 96.1 kg 96.4 kg Intake: IV 250 80 Heparin Sodium,Porcine/ 250 D5w Pmx 25,000 unit In Dextrose/Water 1 500ml. bag @ 18 UNITS/KG/HR 34. 94 mls/hr IV .[id number] DARRIN Rx#:[id number] Sodium Chloride 0.9% 1, 80 000 ml @ 20 mls/hr IV . Q24H DARRIN Rx#:[id number] Oral 480 120 Output: Urine 300 500 Other: Voiding Method Urinal Urinal # Voids 1 1 # Bowel Movements 0 - Exam Physical Exam: Revealed a 62-year-old white male in no distress. HEENT:[Neck is supple.] [No neck masses.] [No thyromegaly.] [No JVD.] Chest: [Diminished breath sounds at the bases, no crackles or rhonchi or wheezes , pigtail catheter noted in the right chest for recent pleural effusion. Cardiac Exam: [Normal S1 and S2, no S3 gallop, no murmur.] Abdomen: [Soft, tender right upper quadrant, no megaly, no rebound, no guarding, normal bowel sounds.] Extremities: [No clubbing, no edema, no cyanosis.] Neurological Exam: [No focal neurologic deficit.] - Labs CBC & Chem 7: 03/08/17 06:06 03/08/17 06:06 Labs: Abnormal Lab Results - Last 24 Hours (Table) 03/08/17 03/08/17 Range/Units 06:06 06:06 RBC 3.53 L (4.30-5.90) m/uL Hgb 9.9 L (13.0-17.5) gm/dL Hct 30.7 L (39.0-53.0) % Plt Count 115 L (150-450) k/uL Lymphocytes # 0.6 L (1.0-4.8) k/uL Glucose 128 H (74-99) mg/dL AST 79 H (17-59) U/L Albumin 2.9 L (3.5-5.0) g/dL Assessment and Plan Plan: Impression: Acute on chronic hypoxic respiratory failure multifactorial, mostly secondary to acute pulmonary embolism, metastatic disease to the lungs, right- sided pleural effusion requiring pigtail catheter placement today recently, and the effusion was malignant in nature. Recommendation: Continue present treatment plan for pulmonary embolism utilizing heparin, patient could be switched to subcu Lovenox or could be placed on Xarelto, I really do not believe that this is a failure to therapy with Xarelto, not to mention the patient may have not been compliant with it to begin with. Reviewed all meds, and we'll continue to follow. discussed his right upper quadrant findings with the admitting physician, ultrasound was ordered, results of which are pending. from the pulmonary perspective, patient will be cleared for discharge planning probably today or tomorrow. Time with Patient: Less than 30
--- NOTE | 2017-03-08 16:06 | US ---
"EXAMINATION TYPE: US gallbladder DATE OF EXAM: 03/08/2017 1:37 PM COMPARISON: US and CT 06 Mar 2017 CLINICAL HISTORY: Right upper quadrant pain. Renal masses, liver masses/ see CT EXAM MEASUREMENTS: Liver Length: 17.4 cm Gallbladder Wall: 0.2 cm CBD: 0.5 cm Right Kidney: 12.8 x 11.8 x 12.1 cm Small right pleural effusion is noted. Pancreas: limitedly seen as obscured by bowel gas Liver: multiple subcentimeter hypoechoic areas in right and left lobes, posterior right lobe shows a lesion measuring 2 cm x 1.4 cm. Grayscale and color Doppler imaging performed/the liver shows a some what coarse echotexture Gallbladder: no stones, sludge or polyps seen; appears compressed by right renal mass Evidence for sonographic Crabtree's sign: tender here at RUQ and RLQ CBD: wnl Right Kidney: has large complex mass as seen on US and CT [address] shows hypodense focus within the intrahepatic inferior vena cava extending fro m the right renal vein compatible with tumor thrombus IMPRESSION: Renal cell carcinoma, hepatic metastasis A Red message has been communicated to Berenice Sosa MD via the [employer] | Critical Result syst em on 03/08/2017 3:58 PM, Message ID [id number]."
--- NOTE | 2017-03-08 17:44 | P.GSCN ---
History of Present Illness Consult date: 03/08/17 Reason for Consult: Abdominal pain Requesting physician: Berenice Sosa History of present illness: Patient is a 62-year-old male, patient of Dr. Negrete in the outpatient setting, with a medical history significant for recent diagnosis of metastatic renal cell carcinoma with diffuse pulmonary and bony metastasis currently undergoing chemotherapy. Patient presented with chief complaint of shortness of breath and abdominal bloating and distention. Patient complains of right upper quadrant and right lower quadrant pain, described as constant, crampy at times. Patient states that over the last 2 days he's had small black hard stools. Patient states that his appetite has decreased over the last 5 days. Abdomen x-ray with no evidence of bowel obstruction or pneumoperitoneum. Ultrasound of gallbladder with evidence of multiple subcentimeter hypoechoic areas in the right and left lobes, posterior right side lobe shows a lesion measuring 2 cm 1.4 cm ; gallbladder without evidence of stones, sludge, or polyps; appears compressed by right renal mass. Common bile duct within normal limit. Right kidney has large complex masses seen on ultrasound and CAT scan. Past Medical History Past Medical History: Cancer Additional Past Medical History / Comment(s): recent diagnosis metastatic renal cell cancer History of Any Multi-Drug Resistant Organisms: None Reported Past Surgical History: Ear Surgery, Orthopedic Surgery, Tonsillectomy Past Anesthesia/Blood Transfusion Reactions: No Reported Reaction Past Psychological History: No Psychological Hx Reported Smoking Status: Former smoker Past Alcohol Use History: None Reported Past Drug Use History: Marijuana Additional Drug Use History / Comment(s): pt states still smokes marijuana - Past Family History Father Family Medical History: Cancer Additional Family Medical History / Comment(s): dad 2015 from leukemia Mother Family Medical History: COPD, CVA/TIA Medications and Allergies Home Medications Medication Instructions Recorded Confirmed Type fentaNYL 12MCG/HR PATCH [Duragesic 1 patch TRANSDERM Q72H 03/03/17 03/06/17 History 12MCG/HR] Pazopanib HCl [Votrient] 800 mg PO DAILY 03/06/17 03/06/17 History guaiFENesin [Mucinex] 600 mg PO Q12H 03/06/17 03/06/17 History Allergies Allergy/AdvReac Type Severity Reaction Status Date / Time No Known Allergies Allergy Verified 03/05/17 22:52 Surgical - Exam Vital Signs Temp Pulse Resp BP Pulse Ox 99.4 F 98 22 124/75 97 03/05/17 22:49 03/05/17 22:49 03/05/17 22:49 03/05/17 22:49 03/05/17 22:49 GENERAL: Pt awake and alert, in no acute distress. HEAD: Atraumatic, normocephalic. EYES: Pupils equal and round, sclera anicteric, conjunctiva are normal. ENT: Moist mucous membranes. LUNGS: Breath sounds diminished to auscultation bilaterally. No wheezes, rales , or rhonchi. HEART: Heart S1, S2, no S3 or S4. Regular rate and rhythm. No murmurs, rubs or gallops. ABDOMEN: Soft, right upper and lower quadrant tenderness, mildly distended, normoactive bowel sounds. No guarding, no rebound. NEUROLOGICAL: Pt oriented x 3. Results - Labs 03/08/17 06:06 03/08/17 06:06 Abnormal Lab Results - Last 24 Hours (Table) 03/08/17 03/08/17 Range/Units 06:06 06:06 RBC 3.53 L (4.30-5.90) m/uL Hgb 9.9 L (13.0-17.5) gm/dL Hct 30.7 L (39.0-53.0) % Plt Count 115 L (150-450) k/uL Lymphocytes # 0.6 L (1.0-4.8) k/uL Glucose 128 H (74-99) mg/dL AST 79 H (17-59) U/L Albumin 2.9 L (3.5-5.0) g/dL Diabetes panel 03/08/17 Range/Units 06:06 Sodium 139 (137-145) mmol/L Potassium 4.2 (3.5-5.1) mmol/L Chloride 103 (98-107) mmol/L Carbon Dioxide 30 (22-30) mmol/L BUN 13 (9-20) mg/dL Creatinine 0.90 (0.66-1.25) mg/dL Glucose 128 H (74-99) mg/dL Calcium 8.4 (8.4-10.2) mg/dL AST 79 H (17-59) U/L ALT 69 (21-72) U/L Alkaline Phosphatase 100 (38-126) U/L Total Protein 6.3 (6.3-8.2) g/dL Albumin 2.9 L (3.5-5.0) g/dL Calcium panel 03/08/17 Range/Units 06:06 Calcium 8.4 (8.4-10.2) mg/dL Albumin 2.9 L (3.5-5.0) g/dL Pituitary panel 03/08/17 Range/Units 06:06 Sodium 139 (137-145) mmol/L Potassium 4.2 (3.5-5.1) mmol/L Chloride 103 (98-107) mmol/L Carbon Dioxide 30 (22-30) mmol/L BUN 13 (9-20) mg/dL Creatinine 0.90 (0.66-1.25) mg/dL Glucose 128 H (74-99) mg/dL Calcium 8.4 (8.4-10.2) mg/dL Adrenal panel 03/08/17 Range/Units 06:06 Sodium 139 (137-145) mmol/L Potassium 4.2 (3.5-5.1) mmol/L Chloride 103 (98-107) mmol/L Carbon Dioxide 30 (22-30) mmol/L BUN 13 (9-20) mg/dL Creatinine 0.90 (0.66-1.25) mg/dL Glucose 128 H (74-99) mg/dL Calcium 8.4 (8.4-10.2) mg/dL Total Bilirubin 0.8 (0.2-1.3) mg/dL AST 79 H (17-59) U/L ALT 69 (21-72) U/L Alkaline Phosphatase 100 (38-126) U/L Total Protein 6.3 (6.3-8.2) g/dL Albumin 2.9 L (3.5-5.0) g/dL - Imaging Abdominal x-ray: report reviewed US - abdomen: report reviewed Assessment and Plan Plan: Impression: 1. Renal cell carcinoma with lung, hepatic, and bone metastasis. Plan: Continue current medical treatment. We'll continue to follow. The above impression and plan have been discussed and directed by Dr. Nichole. Chin TURK acting as scribe for Dr. Nichole.
[2017-03-08] MEDS: LORazepam 2 MG/ML SYRINGE IV PRN (19:59)
[2017-03-08] MEDS ORDERED: SODIUM CHLORIDE 0.65% NASAL SPRAY 44 ML BTL NASAL PRN (20:36)
[2017-03-09] MEDS: LORazepam 2 MG/ML SYRINGE IV PRN (03:06)
[2017-03-09] MEDS: SODIUM CHLORIDE 0.9% 1,000 ML IV SCH (03:10)
[2017-03-09] MEDS: VOTRIENT 200 MG PO SCH (06:12)
[2017-03-09 08:27] LABS: Basophils % (A) 0 %; CH 27.5; CHCM 32.2; Eosinophils # (A) 0.1 k/uL (0-0.7); Eosinophils % (A) 2 %; HCT 30.4 % (39.0-53.0); HDW 3.09; HGB 10.2 gm/dL (13.0-17.5); Hypochromasia Slight; Luc # (Auto) 0.11; Luc % (Auto) 1; Lymphocytes # (A) 0.7 k/uL (1.0-4.8); Lymphocytes % (A) 9 %; MCH 28.6 pg (25.0-35.0); MCHC 33.4 g/dL (31.0-37.0); MCV 85.6 fL (80.0-100.0); Mean Platelet Volume 8.1; Monocytes # (A) 0.4 k/uL (0-1.0); Monocytes % (A) 4 %; Neutrophils # (A) 6.8 k/uL (1.3-7.7); Neutrophils % (A) 83 %; RBC 3.55 m/uL (4.30-5.90); RDW 15.1 % (11.5-15.5); WBC 8.2 k/uL (3.8-10.6); WBC (Perox) 7.85
[2017-03-09 09:05] LABS: ALT 86 U/L (21-72); AST 85 U/L (17-59); Alkaline Phosphatase 122 U/L (38-126); Anion Gap 6 mmol/L; Blood Urea Nitrogen 16 mg/dL (9-20); Calcium 7.8 mg/dL (8.4-10.2); Carbon Dioxide 26 mmol/L (22-30); Chloride 103 mmol/L (98-107); Glucose 128 mg/dL (74-99); Non-African American GFR(MDRD) >60 (>60 ml/min/1.73 sqM); Sodium 135 mmol/L (137-145); Total Bilirubin 0.8 mg/dL (0.2-1.3)
[2017-03-09] MEDS: HYDROcodone/APAP 10-325MG 1 EACH TAB PO PRN ×2 (09:05→20:15)
[2017-03-09] MEDS: PANTOPRAZOLE 40 MG/10 ML VIAL IVP SCH (09:19)
[2017-03-09] MEDS: RIVAROXABAN 10 MG TAB PO SCH (09:19)
[2017-03-09] MEDS: DOCUSATE 100 MG CAP PO SCH ×2 (09:19→20:16)
--- NOTE | 2017-03-09 11:21 | P.PN ---
Subjective Principal diagnosis: Renal cell carcinoma with metastasis to lungs, bones, and liver. Patient is a 62-year-old male with a medical history significant for renal cell carcinoma with metastasis to lungs, bones, and liver. Patient continues to complain of right upper and lower quadrant pain. Patient denies nausea or vomiting. Patient is requesting regular food and states he is hungry. Patient states his is urinating less than normal and it started in color. Patient states he had a bowel movement this morning that was hard in consistency and black. T-max the last 24 hours 100.3. Vital signs stable. No evidence of leukocytosis. Hemoglobin stable at 10.2. AST 85 from 79 yesterday. ALT 86 from 69 yesterday. Alkaline phosphatase normal at 122. Objective - Vital Signs Vital signs: Vital Signs Temp 99.5 F 03/09/17 07:00 Pulse 97 03/09/17 07:00 Resp 16 03/09/17 07:00 BP 120/89 03/09/17 07:00 Pulse Ox 97 03/09/17 07:00 Intake & Output 03/08/17 03/09/17 03/09/17 18:59 06:59 18:59 Intake Total 1590 Output Total 400 800 250 Balance -400 790 -250 Intake: Oral 1590 Output: Urine 400 800 250 Other: Voiding Method Urinal # Voids 1 # Bowel Movements 0 1 - Exam GENERAL: Pt awake and alert, in no acute distress. HEAD: Atraumatic, normocephalic. EYES: Pupils equal and round, sclera anicteric, conjunctiva are normal. ENT: Moist mucous membranes. LUNGS: Breath sounds diminished to auscultation bilaterally. No wheezes, rales , or rhonchi. HEART: Heart S1, S2, no S3 or S4. Regular rate and rhythm. No murmurs, rubs or gallops. ABDOMEN: Soft, right upper and lower quadrant tenderness, mildly distended, normoactive bowel sounds. No guarding, no rebound. NEUROLOGICAL: Pt oriented x 3. - Labs CBC & Chem 7: 03/09/17 08:03 03/09/17 08:03 Labs: Abnormal Lab Results - Last 24 Hours (Table) 03/09/17 03/09/17 Range/Units 08:03 08:03 RBC 3.55 L (4.30-5.90) m/uL Hgb 10.2 L (13.0-17.5) gm/dL Hct 30.4 L (39.0-53.0) % Lymphocytes # 0.7 L (1.0-4.8) k/uL Sodium 135 L (137-145) mmol/L Glucose 128 H (74-99) mg/dL Calcium 7.8 L (8.4-10.2) mg/dL AST 85 H (17-59) U/L ALT 86 H (21-72) U/L Total Protein 6.0 L (6.3-8.2) g/dL Albumin 2.7 L (3.5-5.0) g/dL Assessment and Plan Plan: Impression: 1. Renal cell carcinoma with lung, hepatic, and bone metastasis. Plan: Continue current medical treatment. Advance diet to regular food. Continue to follow. The above impression and plan have been discussed and directed by Dr. Nichole. Chin TURK acting as scribe for Dr. Nichole.
--- NOTE | 2017-03-09 11:59 | P.PN ---
Subjective Patient continued to complain of abdominal pain worse in the right upper quadrant. Objective - Vital Signs Vital signs: Vital Signs Temp 99.5 F 03/09/17 07:00 Pulse 97 03/09/17 07:00 Resp 16 03/09/17 07:00 BP 120/89 03/09/17 07:00 Pulse Ox 97 03/09/17 07:00 Intake & Output 03/08/17 03/09/17 03/09/17 18:59 06:59 18:59 Intake Total 1590 Output Total 400 800 250 Balance -400 790 -250 Intake: Oral 1590 Output: Urine 400 800 250 Other: Voiding Method Urinal # Voids 1 # Bowel Movements 0 1 - Exam General: The patient is awake and alert, in no distress Eye: there is normal conjunctiva bilaterally. Neck: The neck is supple, there is no JVD. Cardiovascular: Normal S1-S2, no S3-S4, no murmurs. Respiratory: Lungs clear to auscultation bilaterally Gastrointestinal: Abdomen is soft. There is tenderness to palpation throughout the abdomen worse than the right upper quadrant. Musculoskeletal: There is no pedal edema. Neurological:. Speech is normal. Skin: Skin is warm and dry - Labs CBC & Chem 7: 03/09/17 08:03 03/09/17 08:03 Labs: Abnormal Lab Results - Last 24 Hours (Table) 03/09/17 03/09/17 Range/Units 08:03 08:03 RBC 3.55 L (4.30-5.90) m/uL Hgb 10.2 L (13.0-17.5) gm/dL Hct 30.4 L (39.0-53.0) % Lymphocytes # 0.7 L (1.0-4.8) k/uL Sodium 135 L (137-145) mmol/L Glucose 128 H (74-99) mg/dL Calcium 7.8 L (8.4-10.2) mg/dL AST 85 H (17-59) U/L ALT 86 H (21-72) U/L Total Protein 6.0 L (6.3-8.2) g/dL Albumin 2.7 L (3.5-5.0) g/dL Assessment and Plan Plan: 1. Acute on chronic hypoxic respiratory failure 2. Pulmonary emboli most likely chronic on anticoagulation with Rivaroxaban as an outpatient 3. Renal cell carcinoma with diffuse metastatic disease/bony metastasis 4. Recurrent right malignant pleural effusion status post chronic pigtail to the right chest to be drained periodically as needed 5. Chronic pain syndrome secondary to metastatic disease 6. Worsening right upper quadrant pain with distended gallbladder noted on computed tomography scan of the abdomen. Obtain ultrasound for further evaluation. This is a 62-year-old gentleman with complex past medical history noted above who presented to the hospital with worsening shortness of breath and hypoxia. Findings on computed tomography scan of the chest suggests for a possible right upper lobe pulmonary emboli that patient is already on anticoagulation with Rivaroxaban. Pulmonology and oncology consulted, appreciate recommendations. Continue Votrient as recommended by oncology. We will continue current regimen otherwise. Repeat lab work in the morning. Today, we discussed options of anticoagulation including Lovenox. Patient initially refused to do the subcutaneous injection given the ultrasound findings yesterday he is now agreeable. He said that his sister is an EMS personnel and with help him do the injection at home. I would switch his anticoagulation to subcutaneous Lovenox starting tomorrow morning. Discontinue Rivaroxaban. Continue supportive care otherwise. Patient and his daughter would like to discuss with pulmonology if the chest tube is still necessary and whether it be removed and there was no significant drainage within the recent week or 2.
--- NOTE | 2017-03-09 13:34 | P.PN ---
Subjective Principal diagnosis: Metastatic renal cell carcinoma, acute pulmonary embolism This is a 62-year-old white male with history of metastatic renal cell carcinoma with diffuse pulmonary and bony metastasis. Patient is receiving chemotherapy at present for his metastatic renal cell cancer. Over the last couple of days, patient has been experiencing bloating, and some abdominal distention. He was also complaining of shortness of breath. Patient is normally on 3 L nasal cannula, but since his shortness of breath was becoming more pronounced, patient presented to the ER, and he was noted to have abnormal CT of the chest suggestive of a right upper lobe pulmonary embolism. Patient has been on Xarelto for recently diagnosed right sided pulmonary embolism about a month ago. At any rate patient was also noted to have significant pulmonary nodules consistent with metastatic disease to the lungs. He was admitted, placed on heparin, and I was asked to see him on consultation. Patient apparently has been compliant with his anticoagulation therapy, however we are not certain whether he is actually taking Xarelto at this point are not. I discussed his condition briefly with Dr. Armando, and at this point I believe the patient may or may have not failed Xarelto therapy, but considering his presentation and considering the overall picture, I believe the patient would be better off eventually discharged home on Lovenox. In the meantime patient is to continue present therapy for his metastatic renal cell carcinoma. Patient was reevaluated today on 03/07/2017, continues to do relatively well, less short of breath, remains on nasal cannula, remains on heparin. PTT today is 55.5. Basic metabolic profile is normal CBC is relatively normal hemoglobin is 10.3. Patient was reevaluated today on 03/08/2017, doing well from the pulmonary perspective, however he seems to have significant amount of pain and tenderness in the right upper quadrant. the area of pain is below where the Pleurx catheter is placed, and it is mostly over the gallbladder and liver area. discussed that specifically with the admitting physician Davin and ultrasound of the gallbladder was ordered. again pulmonary-clarke patient could be cleared for discharge planning, but before any discharge planning I believe his right upper quadrant is a bit concerning although the patient may have liver metastasis from his renal cell carcinoma, and his CT of the abdomen on admission showed nonspecific abnormality in the gallbladder. labs showed normal CBC no evidence of leukocytosis hemoglobin is 9.9 electrolytes and basic metaboic profile are nomal. renal profile is also normal. The patient is seen again today 03/09/2017 on the regular medical floor. He is awake and alert in no acute distress. His pain is better controlled. 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 He is currently on Lovenox 100 mg every 12 hours. He denies any worsening shortness of breath, cough or congestion. He is maintaining O2 saturations in the mid 90s on room air. He did have a T-max of 100.3 the past 24 hours. Blood culture reveals no growth to date. Urine culture is negative. No leukocytosis. Hemoglobin is stable. Objective - Vital Signs Vital signs: Vital Signs Temp 99.5 F 03/09/17 07:00 Pulse 97 03/09/17 07:00 Resp 16 03/09/17 07:00 BP 120/89 03/09/17 07:00 Pulse Ox 97 03/09/17 07:00 Intake & Output 03/08/17 03/09/17 03/09/17 18:59 06:59 18:59 Intake Total 1590 Output Total 400 800 550 Balance -400 790 -550 Intake: Oral 1590 Output: Urine 400 800 550 Other: Voiding Method Urinal # Voids 1 # Bowel Movements 0 1 - Exam GENERAL EXAM: Alert, active, comfortable in no apparent distress. HEAD: Normocephalic. EYES: Normal reaction of pupils, equal size. NOSE: Clear with pink turbinates. THROAT: No erythema or exudates. NECK: No masses, no JVD. CHEST: No chest wall deformity. LUNGS: Equal air entry with echoes in the right posterior base. Rx catheter remains in place. CVS: S1 and S2 normal with no audible murmurs, regular rhythm. ABDOMEN: Soft, normal bowel sounds, no guarding or rigidity. SPINE: No scoliosis or deformity SKIN: No rashes CENTRAL NERVOUS SYSTEM: No focal deficits, tone is normal in all 4 extremities. Extremities: There is trace peripheral edema. No clubbing, no cyanosis. Peripheral pulses are intact. - Labs CBC & Chem 7: 03/09/17 08:03 03/09/17 08:03 Labs: Abnormal Lab Results - Last 24 Hours (Table) 03/09/17 03/09/17 Range/Units 08:03 08:03 RBC 3.55 L (4.30-5.90) m/uL Hgb 10.2 L (13.0-17.5) gm/dL Hct 30.4 L (39.0-53.0) % Lymphocytes # 0.7 L (1.0-4.8) k/uL Sodium 135 L (137-145) mmol/L Glucose 128 H (74-99) mg/dL Calcium 7.8 L (8.4-10.2) mg/dL AST 85 H (17-59) U/L ALT 86 H (21-72) U/L Total Protein 6.0 L (6.3-8.2) g/dL Albumin 2.7 L (3.5-5.0) g/dL Assessment and Plan Plan: Impression: #1 Acute on chronic hypoxic respiratory failure, multifactorial, secondary to acute pulmonary embolism, metastatic disease to lungs, right-sided pleural effusion. Pleurx catheter remains in place and was initially placed 02/04/2017. #2 Metastatic renal cell carcinoma. Receiving pazopanib. #3 Prior history of pulmonary embolism, on Xarelto in the outpatient setting. Plan: The patient was seen and evaluated by Dr. Washington. He is currently stable from the pulmonary and critical care standpoint. Continue with adequate pain control. He's been initiated on Lovenox and the plan is to continue this at home. We have requested cardiothoracic to see the patient in regards to possibly removing the Pleurx catheter. We will continue to follow and make further recommendations based on his clinical status.
[2017-03-09] MEDS ORDERED: LIDOCAINE 2% INJ 20 MG/ML (20 ML MDV) SQ STA (14:14)
[2017-03-10] MEDS: SODIUM CHLORIDE 0.9% 1,000 ML IV SCH (04:19)
[2017-03-10] MEDS: VOTRIENT 200 MG PO SCH (06:19)
[2017-03-10] MEDS: HYDROcodone/APAP 10-325MG 1 EACH TAB PO PRN ×4 (06:23→18:25)
[2017-03-10] MEDS: PANTOPRAZOLE 40 MG TABLET PO SCH (07:33)
[2017-03-10] MEDS: ENOXAPARIN 100 MG/ML SYRINGE SQ SCH ×2 (07:33→20:22)
[2017-03-10] MEDS: DOCUSATE 100 MG CAP PO SCH ×2 (07:33→20:23)
--- NOTE | 2017-03-10 07:52 | XR ---
EXAMINATION TYPE: XR chest 1V portable DATE OF EXAM: 03/10/2017 7:34 AM COMPARISON: Prior chest x-ray February HISTORY: Status post Pleurx catheter removal TECHNIQUE: Single frontal view of the chest is obtained. FINDINGS: Persistent pleural-parenchymal changes are present on the right compatible with loculated fluid and possibly tumor. Heart is prominent although the patient is rotated. No evident pneumothorax . IMPRESSION: No evident complication status post Pleurx tube removal.
--- NOTE | 2017-03-10 09:00 | P.PCN ---
Date of Procedure: 03/09/17 Preoperative Diagnosis: R PleurX Postoperative Diagnosis: SAME Procedure(s) Performed: removal of R PleurX Catheter Pathology: none sent Condition: stable Disposition: no change Indications for Procedure: R PleurX with minimal effluent Operative Findings: same Description of Procedure: Under aseptic technique and after securing L/A using lidocaine 1%, R pleurX catheter cuff was freed and the catheter withdrawn in totality without problems.
[2017-03-10 09:31] LABS: Basophils % (A) 0 %; CH 27.2; CHCM 31.7; Eosinophils # (A) 0.1 k/uL (0-0.7); Eosinophils % (A) 1 %; HGB 10.2 gm/dL (13.0-17.5); Hypochromasia Slight; Luc # (Auto) 0.13; Luc % (Auto) 2; Lymphocytes # (A) 0.9 k/uL (1.0-4.8); Lymphocytes % (A) 11 %; MCH 28.3 pg (25.0-35.0); MCV 85.9 fL (80.0-100.0); Mean Platelet Volume 7.4; Monocytes # (A) 0.3 k/uL (0-1.0); Monocytes % (A) 4 %; Neutrophils # (A) 6.7 k/uL (1.3-7.7); Neutrophils % (A) 82 %; RBC 3.61 m/uL (4.30-5.90); WBC 8.2 k/uL (3.8-10.6)
[2017-03-10 09:53] LABS: ALT 108 U/L (21-72); AST 86 U/L (17-59); Alkaline Phosphatase 156 U/L (38-126); Anion Gap 7 mmol/L; Blood Urea Nitrogen 14 mg/dL (9-20); Carbon Dioxide 26 mmol/L (22-30); Chloride 100 mmol/L (98-107); Glucose 128 mg/dL (74-99); Magnesium 1.9 mg/dL (1.6-2.3); Non-African American GFR(MDRD) >60 (>60 ml/min/1.73 sqM); Potassium 4.4 mmol/L (3.5-5.1); Sodium 133 mmol/L (137-145); Total Protein 6.2 g/dL (6.3-8.2)
--- NOTE | 2017-03-10 13:10 | P.PN ---
Subjective Principal diagnosis: Metastatic renal cell carcinoma, acute pulmonary embolism This is a 62-year-old white male with history of metastatic renal cell carcinoma with diffuse pulmonary and bony metastasis. Patient is receiving chemotherapy at present for his metastatic renal cell cancer. Over the last couple of days, patient has been experiencing bloating, and some abdominal distention. He was also complaining of shortness of breath. Patient is normally on 3 L nasal cannula, but since his shortness of breath was becoming more pronounced, patient presented to the ER, and he was noted to have abnormal CT of the chest suggestive of a right upper lobe pulmonary embolism. Patient has been on Xarelto for recently diagnosed right sided pulmonary embolism about a month ago. At any rate patient was also noted to have significant pulmonary nodules consistent with metastatic disease to the lungs. He was admitted, placed on heparin, and I was asked to see him on consultation. Patient apparently has been compliant with his anticoagulation therapy, however we are not certain whether he is actually taking Xarelto at this point are not. I discussed his condition briefly with Dr. Armando, and at this point I believe the patient may or may have not failed Xarelto therapy, but considering his presentation and considering the overall picture, I believe the patient would be better off eventually discharged home on Lovenox. In the meantime patient is to continue present therapy for his metastatic renal cell carcinoma. Patient was reevaluated today on 03/07/2017, continues to do relatively well, less short of breath, remains on nasal cannula, remains on heparin. PTT today is 55.5. Basic metabolic profile is normal CBC is relatively normal hemoglobin is 10.3. Patient was reevaluated today on 03/08/2017, doing well from the pulmonary perspective, however he seems to have significant amount of pain and tenderness in the right upper quadrant. the area of pain is below where the Pleurx catheter is placed, and it is mostly over the gallbladder and liver area. discussed that specifically with the admitting physician Davin and ultrasound of the gallbladder was ordered. again pulmonary-clarke patient could be cleared for discharge planning, but before any discharge planning I believe his right upper quadrant is a bit concerning although the patient may have liver metastasis from his renal cell carcinoma, and his CT of the abdomen on admission showed nonspecific abnormality in the gallbladder. labs showed normal CBC no evidence of leukocytosis hemoglobin is 9.9 electrolytes and basic metaboic profile are nomal. renal profile is also normal. The patient is seen again today 03/09/2017 on the regular medical floor. He is awake and alert in no acute distress. His pain is better controlled. 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 He is currently on Lovenox 100 mg every 12 hours. He denies any worsening shortness of breath, cough or congestion. He is maintaining O2 saturations in the mid 90s on room air. He did have a T-max of 100.3 the past 24 hours. Blood culture reveals no growth to date. Urine culture is negative. No leukocytosis. Hemoglobin is stable. The patient is seen again today 03/10/2017 in follow-up. He is resting comfortably in bed. The Pleurx catheter was removed this morning. Chest x-ray reveals loculated fluid in the right lung base. His Pleurx catheter was removed this morning. He is maintaining good O2 saturations in the low 90s on room air. No pulmonary complaints. Objective - Vital Signs Vital signs: Vital Signs Temp 98.8 F 03/10/17 07:00 Pulse 97 03/10/17 07:00 Resp 18 03/10/17 07:00 BP 135/90 03/10/17 07:00 Pulse Ox 92 L 03/10/17 07:00 Intake & Output 03/09/17 03/10/17 03/10/17 18:59 06:59 18:59 Intake Total 760 Output Total 1300 1250 700 Balance -540 -1250 -700 Intake: IV 160 Sodium Chloride 0.9% 1, 160 000 ml @ 20 mls/hr IV . Q24H [facility] Rx#:[id number] Oral 600 Output: Urine 1300 1250 700 Other: Voiding Method Urinal # Voids 3 3 # Bowel Movements 1 - Exam GENERAL EXAM: Alert, fairly comfortable in no apparent distress. HEAD: Normocephalic. EYES: Normal reaction of pupils, equal size. NOSE: Clear with pink turbinates. THROAT: No erythema or exudates. NECK: No masses, no JVD. CHEST: No chest wall deformity. LUNGS: Equal air entry with crackles in the right posterior base. CVS: S1 and S2 normal with no audible murmurs, regular rhythm. ABDOMEN: Soft, normal bowel sounds, no guarding or rigidity. SPINE: No scoliosis or deformity SKIN: No rashes CENTRAL NERVOUS SYSTEM: No focal deficits, tone is normal in all 4 extremities. Extremities: There is trace peripheral edema. No clubbing, no cyanosis. Peripheral pulses are intact. - Labs CBC & Chem 7: 03/10/17 09:08 03/10/17 09:08 Labs: Abnormal Lab Results - Last 24 Hours (Table) 03/10/17 03/10/17 Range/Units 09:08 09:08 RBC 3.61 L (4.30-5.90) m/uL Hgb 10.2 L (13.0-17.5) gm/dL Hct 31.0 L (39.0-53.0) % Lymphocytes # 0.9 L (1.0-4.8) k/uL Sodium 133 L (137-145) mmol/L Glucose 128 H (74-99) mg/dL Calcium 8.0 L (8.4-10.2) mg/dL AST 86 H (17-59) U/L ALT 108 H (21-72) U/L Alkaline Phosphatase 156 H (38-126) U/L Total Protein 6.2 L (6.3-8.2) g/dL Albumin 2.8 L (3.5-5.0) g/dL Assessment and Plan Plan: Impression: #1 Acute on chronic hypoxic respiratory failure, multifactorial, secondary to acute pulmonary embolism, metastatic disease to lungs, right-sided pleural effusion. Pleurx catheter remains in place and was initially placed 02/04/2017. #2 Metastatic renal cell carcinoma. Receiving pazopanib. #3 Prior history of pulmonary embolism, on Xarelto in the outpatient setting. Plan: The patient was seen and evaluated by Dr. Washington. He is currently stable from the pulmonary standpoint. X-ray was reviewed. He is maintaining good O2 saturations on room air. Pleurx catheter was removed. He remains on Lovenox 100 mg subcutaneous every 12 hours, the plan is for that to be continued at home. We will see the patient on as-needed basis.
--- NOTE | 2017-03-10 13:39 | P.PN ---
Subjective This is a 62-year-old gentleman with complex past medical history noted above who presented to the hospital with worsening shortness of breath and hypoxia. Findings on computed tomography scan of the chest suggests for a possible right upper lobe pulmonary emboli that patient is already on anticoagulation with Rivaroxaban. Pulmonology and oncology consulted, appreciate recommendations. Continue Votrient as recommended by oncology. We will continue current regimen otherwise. Repeat lab work in the morning. Patient had Pleurx catheter removed this morning. He's been having low-grade temps 100.4 history afternoon. He denies any chest pain or shortness of breath. Denies any cough. Denies any nausea or vomiting. Denies any bowel movement changes or urinary symptoms. Blood culture have been ordered Objective - Vital Signs Vital signs: Vital Signs Temp 98.8 F 03/10/17 07:00 Pulse 97 03/10/17 07:00 Resp 18 03/10/17 07:00 BP 135/90 03/10/17 07:00 Pulse Ox 92 L 03/10/17 07:00 Intake & Output 03/09/17 03/10/17 03/10/17 18:59 06:59 18:59 Intake Total 760 Output Total 1300 1250 900 Balance -540 -1250 -900 Intake: IV 160 Sodium Chloride 0.9% 1, 160 000 ml @ 20 mls/hr IV . Q24H [facility] Rx#:[id number] Oral 600 Output: Urine 1300 1250 900 Other: Voiding Method Urinal # Voids 3 3 # Bowel Movements 1 - Exam Head normocephalic Neck supple Lungs clear to auscultation bilaterally no wheezing or crackles Heart regular rate and rhythm S1-S2, no rub or gallop Abdomen is soft nontender nondistended positive bowel sounds no hepatosplenomegaly Extremities no edema Neuro alert and orientated to 3 - Labs CBC & Chem 7: 03/10/17 09:08 03/10/17 09:08 Labs: Abnormal Lab Results - Last 24 Hours (Table) 03/10/17 03/10/17 Range/Units 09:08 09:08 RBC 3.61 L (4.30-5.90) m/uL Hgb 10.2 L (13.0-17.5) gm/dL Hct 31.0 L (39.0-53.0) % Lymphocytes # 0.9 L (1.0-4.8) k/uL Sodium 133 L (137-145) mmol/L Glucose 128 H (74-99) mg/dL Calcium 8.0 L (8.4-10.2) mg/dL AST 86 H (17-59) U/L ALT 108 H (21-72) U/L Alkaline Phosphatase 156 H (38-126) U/L Total Protein 6.2 L (6.3-8.2) g/dL Albumin 2.8 L (3.5-5.0) g/dL Assessment and Plan Plan: 1. Acute on chronic hypoxic respiratory failure 2. Pulmonary emboli most likely chronic on anticoagulation with Rivaroxaban as an outpatient. He is currently on Lovenox 100 mg subcu every 12 hours and will be continuing this at home 3. Renal cell carcinoma with diffuse metastatic disease/bony metastasis 4. Recurrent right malignant pleural effusion status post chronic pigtail to the right chest to be drained periodically as needed 5. Chronic pain syndrome secondary to metastatic disease 6. Worsening right upper quadrant pain with distended gallbladder noted on computed tomography scan of the abdomen. Patient evaluated by surgical service. Likely symptoms are related to liver metastases as well as the Pleurx catheter tube. Tube was removed. We'll continue with current pain medications. Monitor for pain. 7. Continuous low-grade temps. Continue to monitor. Recheck blood culture and urinalysis I performed an examination of the patient and discussed their management with the physician Waste Reclaimer. I have reviewed the Physician Waste Reclaimer's notes and agree with the documented findings and plan of care
[2017-03-10 14:04] VITALS: BMI 31.4
[2017-03-10 15:25] LABS: Appearance,Urine Clear (Clear); Bilirubin,Urine Negative (Negative); Glucose,Urine (UA) Negative (Negative); Ketones,Urine Negative (Negative); Leukocyte Esterase,Urine Negative (Negative); Mucus,Urine Rare /hpf; Nitrite,Urine Negative (Negative); PH, Urine 5.5 (5.0-8.0); Particle Count 1378; Protein,Urine Trace (Negative); Specific Gravity,Urine 1.009 (1.001-1.035); UA Billing (MACRO vs. MICRO) MICRO; WBC,Urine <1 /hpf (0-5)
--- NOTE | 2017-03-10 17:14 | P.PN ---
Subjective Patient is a 62-year-old male with a medical history significant for renal cell carcinoma with metastasis to lungs, bones, and liver. Patient states pain to his right upper and lower quadrant has improved slightly from yesterday. Patient reports mild nausea without vomiting. Patient states his is urinating less than normal and it is brown in color. T-max the last 24 hours 100.4. Vital signs stable. No evidence of leukocytosis. Hemoglobin stable at 10.2. AST increased to 86, ALT increased to 108, alkaline phosphatase increased to 156. Objective - Vital Signs Vital signs: Vital Signs Temp 98.6 F 03/10/17 15:00 Pulse 92 03/10/17 15:00 Resp 18 03/10/17 15:00 BP 123/79 03/10/17 15:00 Pulse Ox 95 03/10/17 15:00 Intake & Output 03/09/17 03/10/17 03/10/17 18:59 06:59 18:59 Intake Total 760 Output Total 1300 1250 900 Balance -540 -1250 -900 Weight 96.4 kg Intake: IV 160 Sodium Chloride 0.9% 1, 160 000 ml @ 20 mls/hr IV . Q24H [facility] Rx#:[id number] Oral 600 Output: Urine 1300 1250 900 Other: Voiding Method Urinal # Voids 3 3 # Bowel Movements 1 - Exam GENERAL: Pt awake and alert, in no acute distress. HEAD: Atraumatic, normocephalic. EYES: Pupils equal and round, sclera anicteric, conjunctiva are normal. ENT: Moist mucous membranes. LUNGS: Breath sounds diminished to auscultation bilaterally. No wheezes, rales , or rhonchi. HEART: Heart S1, S2, no S3 or S4. Regular rate and rhythm. No murmurs, rubs or gallops. ABDOMEN: Soft, right upper and lower quadrant tenderness, mildly distended, normoactive bowel sounds. No guarding, no rebound. NEUROLOGICAL: Pt oriented x 3. - Labs CBC & Chem 7: 03/10/17 09:08 03/10/17 09:08 Labs: Abnormal Lab Results - Last 24 Hours (Table) 03/10/17 03/10/17 03/10/17 Range/Units 09:08 09:08 14:57 RBC 3.61 L (4.30-5.90) m/uL Hgb 10.2 L (13.0-17.5) gm/dL Hct 31.0 L (39.0-53.0) % Lymphocytes # 0.9 L (1.0-4.8) k/uL Sodium 133 L (137-145) mmol/L Glucose 128 H (74-99) mg/dL Calcium 8.0 L (8.4-10.2) mg/dL AST 86 H (17-59) U/L ALT 108 H (21-72) U/L Alkaline Phosphatase 156 H (38-126) U/L Total Protein 6.2 L (6.3-8.2) g/dL Albumin 2.8 L (3.5-5.0) g/dL Urine Protein Trace H (Negative) Urine Blood Small H (Negative) Urine Mucus Rare H (None) /hpf Assessment and Plan Plan: Impression: 1. Renal cell carcinoma with lung, hepatic, and bone metastasis. Plan: Continue current medical treatment. Advance diet to regular food. No surgical intervention planned at this time. We'll sign off service. Please reconsult services as needed. The above impression and plan have been discussed and directed by Dr. Nichole. Chin TURK acting as scribe for Dr. Nichole.
--- NOTE | 2017-03-10 18:00 | P.PN ---
Subjective Principal diagnosis: recurrent PE, metastatic renal cell carcinoma Objective - Vital Signs Vital signs: Vital Signs Temp 98.6 F 03/10/17 15:00 Pulse 92 03/10/17 15:00 Resp 18 03/10/17 15:00 BP 123/79 03/10/17 15:00 Pulse Ox 95 03/10/17 15:00 Intake & Output 03/09/17 03/10/17 03/10/17 18:59 06:59 18:59 Intake Total 760 Output Total 1300 1250 900 Balance -540 -1250 -900 Weight 96.4 kg Intake: IV 160 Sodium Chloride 0.9% 1, 160 000 ml @ 20 mls/hr IV . Q24H [facility] Rx#:[id number] Oral 600 Output: Urine 1300 1250 900 Other: Voiding Method Urinal # Voids 3 3 # Bowel Movements 1 - Constitutional General appearance: Present: cooperative, no acute distress, obese - EENT ENT: Present: normal oropharynx - Respiratory Respiratory: bilateral: CTA - Cardiovascular Heart sounds: normal: S1, S2 - Peripheral edema leg Peripheral Edema: bilateral: Trace - Gastrointestinal General gastrointestinal: Present: normal bowel sounds, soft - Integumentary Integumentary Comment(s): forehead nodules visually look smaller Integumentary: Present: pale - Neurologic Neurologic: Present: CNII-XII intact - Musculoskeletal Musculoskeletal: Present: strength equal bilaterally - Psychiatric Psychiatric: Present: A&O x's 3, appropriate affect, intact judgment & insight - Labs CBC & Chem 7: 03/10/17 09:08 03/10/17 09:08 Labs: Abnormal Lab Results - Last 24 Hours (Table) 03/10/17 03/10/17 03/10/17 Range/Units 09:08 09:08 14:57 RBC 3.61 L (4.30-5.90) m/uL Hgb 10.2 L (13.0-17.5) gm/dL Hct 31.0 L (39.0-53.0) % Lymphocytes # 0.9 L (1.0-4.8) k/uL Sodium 133 L (137-145) mmol/L Glucose 128 H (74-99) mg/dL Calcium 8.0 L (8.4-10.2) mg/dL AST 86 H (17-59) U/L ALT 108 H (21-72) U/L Alkaline Phosphatase 156 H (38-126) U/L Total Protein 6.2 L (6.3-8.2) g/dL Albumin 2.8 L (3.5-5.0) g/dL Urine Protein Trace H (Negative) Urine Blood Small H (Negative) Urine Mucus Rare H (None) /hpf - Imaging and Cardiology Chest x-ray: report reviewed Assessment and Plan (1) Metastatic carcinoma Status: Acute (2) Renal cell carcinoma Narrative/Plan: Patient has started Votrient and will continue on Votrient. Patient is having good objective response. Status: Acute (3) Dyspnea Narrative/Plan: Had Pleurx drain removed today without any complications Status: Acute Plan: Pulmonary embolism. Dr. Washington did review the patient's CT of the chest and discussed the findings with Dr. Armando. It is uncertain if the findings are associated with new PE or not so, recommendation is to change patient to a different anticoagulation. Patient has been prescribed Lovenox 100 mg subcu twice a day. This prescription was sent to [facility] outpatient pharmacy for co-pay verification. Patient has a $0 co-pay. Unfortunately the medication does have to be ordered and will not be available until Monday at 2 PM. Patient will continue on this lifelong. Information regarding patient's prescription, co-pay and availability was communicated with nursing. Patient is okay to be discharged to home from a hematology oncology standpoint once he has the appropriate medications.
[2017-03-11] MEDS: HYDROcodone/APAP 10-325MG 1 EACH TAB PO PRN ×4 (00:09→22:36)
[2017-03-11 07:57] LABS: Basophils % (A) 0 %; CH 27.5; CHCM 32.7; Eosinophils # (A) 0.1 k/uL (0-0.7); Eosinophils % (A) 1 %; HCT 30.7 % (39.0-53.0); HDW 3.09; HGB 9.9 gm/dL (13.0-17.5); Luc # (Auto) 0.13; Luc % (Auto) 2; Lymphocytes # (A) 0.8 k/uL (1.0-4.8); Lymphocytes % (A) 11 %; MCH 27.3 pg (25.0-35.0); MCHC 32.3 g/dL (31.0-37.0); MCV 84.4 fL (80.0-100.0); Mean Platelet Volume 7.7; Monocytes # (A) 0.4 k/uL (0-1.0); Monocytes % (A) 6 %; Neutrophils % (A) 80 %; RBC 3.64 m/uL (4.30-5.90); WBC 7.4 k/uL (3.8-10.6); WBC (Perox) 7.42
[2017-03-11] MEDS: VOTRIENT 200 MG PO SCH (08:14)
[2017-03-11 08:23] LABS: ALT 124 U/L (21-72); AST 91 U/L (17-59); Alkaline Phosphatase 197 U/L (38-126); Anion Gap 7 mmol/L; Blood Urea Nitrogen 13 mg/dL (9-20); Calcium 8.1 mg/dL (8.4-10.2); Carbon Dioxide 26 mmol/L (22-30); Chloride 99 mmol/L (98-107); Glucose 107 mg/dL (74-99); Magnesium 1.9 mg/dL (1.6-2.3); Non-African American GFR(MDRD) >60 (>60 ml/min/1.73 sqM); Potassium 4.4 mmol/L (3.5-5.1); Sodium 132 mmol/L (137-145); Total Bilirubin 0.9 mg/dL (0.2-1.3); Total Protein 6.4 g/dL (6.3-8.2)
[2017-03-11] MEDS: PANTOPRAZOLE 40 MG TABLET PO SCH (08:43)
[2017-03-11] MEDS: ENOXAPARIN 100 MG/ML SYRINGE SQ SCH ×2 (08:43→20:52)
[2017-03-11] MEDS: DOCUSATE 100 MG CAP PO SCH ×2 (08:43→20:52)
[2017-03-11] MEDS: SODIUM CHLORIDE 0.9% 1,000 ML IV SCH (11:27)
--- NOTE | 2017-03-11 15:05 | P.PN ---
Subjective This is a 62-year-old gentleman with complex past medical history noted above who presented to the hospital with worsening shortness of breath and hypoxia. Findings on computed tomography scan of the chest suggests for a possible right upper lobe pulmonary emboli that patient is already on anticoagulation with Rivaroxaban. Pulmonology and oncology consulted, appreciate recommendations. Continue Votrient as recommended by oncology. We will continue current regimen otherwise. Repeat lab work in the morning. Patient was switched to Lovenox 100 mg subcu twice daily as this may represent Xarelto failure Objective - Vital Signs Vital signs: Vital Signs Temp 98.1 F 03/11/17 07:00 Pulse 95 03/11/17 07:00 Resp 20 03/11/17 07:00 BP 119/74 03/11/17 07:00 Pulse Ox 94 L 03/11/17 07:00 Intake & Output 03/10/17 03/11/17 03/11/17 18:59 06:59 18:59 Intake Total 75 Output Total 900 450 Balance -900 75 -450 Weight 96.4 kg Intake: Oral 75 Output: Urine 900 450 Other: Voiding Method Urinal Urinal Urinal # Voids 3 - Exam GENERAL EXAM: Alert, fairly comfortable in no apparent distress. HEENT: Head Normocephalic and atraumatic NECK: Is supple no lymphadenopathy, no JVD. LUNGS: Equal air entry with crackles in the right posterior base. Cardiac exam S1 and S2 normal with no audible murmurs, regular rhythm. ABDOMEN: Soft, normal bowel sounds, no guarding or rigidity. SPINE: No scoliosis or deformity SKIN: No rashes NEURO: No focal deficit Extremities: There is trace peripheral edema. No clubbing, no cyanosis. - Labs CBC & Chem 7: 03/11/17 07:33 03/11/17 07:33 Labs: Abnormal Lab Results - Last 24 Hours (Table) 03/10/17 03/11/17 03/11/17 Range/Units 14:57 07:33 07:33 RBC 3.64 L (4.30-5.90) m/uL Hgb 9.9 L (13.0-17.5) gm/dL Hct 30.7 L (39.0-53.0) % Lymphocytes # 0.8 L (1.0-4.8) k/uL Sodium 132 L (137-145) mmol/L Glucose 107 H (74-99) mg/dL Calcium 8.1 L (8.4-10.2) mg/dL AST 91 H (17-59) U/L ALT 124 H (21-72) U/L Alkaline Phosphatase 197 H (38-126) U/L Albumin 2.8 L (3.5-5.0) g/dL Urine Protein Trace H (Negative) Urine Blood Small H (Negative) Urine Mucus Rare H (None) /hpf Assessment and Plan Plan: 1. Acute on chronic hypoxic respiratory failure 2. Pulmonary emboli most likely chronic on anticoagulation with Rivaroxaban as an outpatient. He is currently on Lovenox 100 mg subcu every 12 hours and will be continuing this at home 3. Renal cell carcinoma with diffuse metastatic disease/bony metastasis 4. Recurrent right malignant pleural effusion status post chronic pigtail to the right chest to be drained periodically as needed 5. Chronic pain syndrome secondary to metastatic disease 6. Worsening right upper quadrant pain with distended gallbladder noted on computed tomography scan of the abdomen. Patient evaluated by surgical service. Likely symptoms are related to liver metastases as well as the Pleurx catheter tube. Tube was removed. We'll continue with current pain medications. Monitor for pain. 7. Continuous low-grade temps. Continue to monitor. Recheck blood culture and urinalysis
[2017-03-11] MEDS: LORazepam 2 MG/ML SYRINGE IV PRN (23:58)
[2017-03-12] MEDS: SODIUM CHLORIDE 0.9% 1,000 ML IV SCH (04:25)
[2017-03-12] MEDS: VOTRIENT 200 MG PO SCH (07:08)
[2017-03-12 07:34] LABS: Basophils % (A) 0 %; CH 27.5; CHCM 31.5; Eosinophils # (A) 0.2 k/uL (0-0.7); Eosinophils % (A) 3 %; HCT 31.7 % (39.0-53.0); HDW 2.88; Hypochromasia Slight; Luc # (Auto) 0.17; Luc % (Auto) 2; Lymphocytes % (A) 13 %; MCH 27.5 pg (25.0-35.0); MCHC 31.4 g/dL (31.0-37.0); MCV 87.5 fL (80.0-100.0); Monocytes # (A) 0.3 k/uL (0-1.0); Monocytes % (A) 5 %; Neutrophils # (A) 5.8 k/uL (1.3-7.7); Neutrophils % (A) 78 %; RBC 3.62 m/uL (4.30-5.90); RDW 15.4 % (11.5-15.5); WBC 7.5 k/uL (3.8-10.6)
[2017-03-12] MEDS: ENOXAPARIN 100 MG/ML SYRINGE SQ SCH ×2 (09:10→20:10)
[2017-03-12] MEDS: DOCUSATE 100 MG CAP PO SCH ×2 (09:10→20:10)
[2017-03-12] MEDS: PANTOPRAZOLE 40 MG TABLET PO SCH (09:10)
[2017-03-12] MEDS: HYDROcodone/APAP 10-325MG 1 EACH TAB PO PRN ×2 (12:10→16:31)
--- NOTE | 2017-03-12 17:49 | P.PN ---
Subjective This is a 62-year-old gentleman with complex past medical history noted above who presented to the hospital with worsening shortness of breath and hypoxia. Findings on computed tomography scan of the chest suggests for a possible right upper lobe pulmonary emboli that patient is already on anticoagulation with Rivaroxaban. Pulmonology and oncology consulted, appreciate recommendations. Continue Votrient as recommended by oncology. We will continue current regimen otherwise. Repeat lab work in the morning. Patient was switched to Lovenox 100 mg subcu twice daily as this may represent Xarelto failure Objective - Vital Signs Vital signs: Vital Signs Temp 98.2 F 03/12/17 14:58 Pulse 66 03/12/17 14:58 Resp 18 03/12/17 14:58 BP 142/76 03/12/17 14:58 Pulse Ox 95 03/12/17 14:58 Intake & Output 03/11/17 03/12/17 03/12/17 18:59 06:59 18:59 Output Total 950 400 Balance -950 -400 Output: Urine 950 400 Other: Voiding Method Urinal Urinal Urinal # Voids 320 - Exam GENERAL EXAM: Alert, fairly comfortable in no apparent distress. HEENT: Head Normocephalic and atraumatic NECK: Is supple no lymphadenopathy, no JVD. LUNGS: Equal air entry with crackles in the right posterior base. Cardiac exam S1 and S2 normal with no audible murmurs, regular rhythm. ABDOMEN: Soft, normal bowel sounds, no guarding or rigidity. SPINE: No scoliosis or deformity SKIN: No rashes NEURO: No focal deficit Extremities: There is trace peripheral edema. No clubbing, no cyanosis. - Labs CBC & Chem 7: 03/12/17 07:18 03/11/17 07:33 Labs: Abnormal Lab Results - Last 24 Hours (Table) 03/12/17 Range/Units 07:18 RBC 3.62 L (4.30-5.90) m/uL Hgb 10.0 L (13.0-17.5) gm/dL Hct 31.7 L (39.0-53.0) % Microbiology - Last 24 Hours (Table) 03/10/17 14:13 Blood Culture - Preliminary Blood No Growth after 48 hours Assessment and Plan Plan: 1. Acute on chronic hypoxic respiratory failure 2. Pulmonary emboli most likely chronic on anticoagulation with Rivaroxaban as an outpatient. He is currently on Lovenox 100 mg subcu every 12 hours and will be continuing this at home 3. Renal cell carcinoma with diffuse metastatic disease/bony metastasis 4. Recurrent right malignant pleural effusion status post chronic pigtail to the right chest to be drained periodically as needed 5. Chronic pain syndrome secondary to metastatic disease 6. Worsening right upper quadrant pain with distended gallbladder noted on computed tomography scan of the abdomen. Patient evaluated by surgical service. Likely symptoms are related to liver metastases as well as the Pleurx catheter tube. Tube was removed. We'll continue with current pain medications. Monitor for pain. 7. Continuous low-grade temps. Continue to monitor. Recheck blood culture and urinalysis At this time patient is unable to stand or walk, he may need to go to a rehab unit Possible discharge tomorrow
[2017-03-12] MEDS: LORazepam 2 MG/ML SYRINGE IV PRN (23:37)
[2017-03-13 01:23] VITALS: RESP 16
[2017-03-13 07:40] LABS: Basophils % (A) 0 %; CH 27.3; CHCM 31.8; Eosinophils # (A) 0.1 k/uL (0-0.7); Eosinophils % (A) 2 %; HCT 31.6 % (39.0-53.0); HGB 9.9 gm/dL (13.0-17.5); Hypochromasia Slight; Luc # (Auto) 0.15; Luc % (Auto) 3; Lymphocytes # (A) 0.8 k/uL (1.0-4.8); Lymphocytes % (A) 14 %; MCH 27.1 pg (25.0-35.0); MCHC 31.4 g/dL (31.0-37.0); MCV 86.2 fL (80.0-100.0); Mean Platelet Volume 7.5; Monocytes # (A) 0.3 k/uL (0-1.0); Monocytes % (A) 5 %; Neutrophils # (A) 4.5 k/uL (1.3-7.7); Neutrophils % (A) 76 %; RBC 3.67 m/uL (4.30-5.90); RDW 15.6 % (11.5-15.5); WBC 5.9 k/uL (3.8-10.6); WBC (Perox) 6.25
[2017-03-13 08:03] LABS: ALT 155 U/L (21-72); AST 99 U/L (17-59); Alkaline Phosphatase 231 U/L (38-126); Anion Gap 9 mmol/L; Blood Urea Nitrogen 16 mg/dL (9-20); Calcium 8.1 mg/dL (8.4-10.2); Carbon Dioxide 25 mmol/L (22-30); Chloride 97 mmol/L (98-107); Glucose 142 mg/dL (74-99); Non-African American GFR(MDRD) >60 (>60 ml/min/1.73 sqM); Potassium 4.7 mmol/L (3.5-5.1); Sodium 131 mmol/L (137-145); Total Bilirubin 0.8 mg/dL (0.2-1.3); Total Protein 6.5 g/dL (6.3-8.2)
[2017-03-13 08:29] VITALS: BP 126/90; PULSE 92; TEMP 98.4
[2017-03-13] MEDS: PANTOPRAZOLE 40 MG TABLET PO SCH (08:39)
[2017-03-13] MEDS: DOCUSATE 100 MG CAP PO SCH (08:39)
[2017-03-13] MEDS: ENOXAPARIN 100 MG/ML SYRINGE SQ SCH (08:40)
[2017-03-13] MEDS: VOTRIENT 200 MG PO SCH (08:44)
[2017-03-13] MEDS: HYDROcodone/APAP 10-325MG 1 EACH TAB PO PRN (09:32)
[2017-03-13] MEDS ORDERED: oxyCODONE-APAP 10-325MG 1 EACH TAB PO PRN (12:46)
--- NOTE | 2017-03-13 13:20 | P.DS ---
Providers Date of admission: 03/06/17 01:59 Expected date of discharge: 03/13/17 Attending physician: Berenice Sosa Consults: 03/09/17 13:17 Consult Physician Routine Consulting Provider: Cale Zambrano Consult Reason/Comments: Pleurx catheter ? removal Do you want consulting provider notified?: Yes, Notify in am [facility] Course: 1. Acute on chronic hypoxic respiratory failure 2. Pulmonary emboli most likely chronic on anticoagulation with Rivaroxaban as an outpatient 3. Renal cell carcinoma with diffuse metastatic disease/bony metastasis 4. Recurrent right malignant pleural effusion status post chronic pigtail to the right chest. Catheter was removed during this admission 5. Chronic pain syndrome secondary to metastatic disease 6. Worsening right upper quadrant pain with distended gallbladder noted on computed tomography scan of the abdomen. 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 Prescription sent to his pharmacy. His pain regimen will be changed to oxycodone as patient believes he has had a reaction to Tylenol. He will be discharged home in a stable condition. Prognosis is very poor and guarded. Patient aware of hospice as an option. He will follow-up with his oncologist as directed. Please refer to the electronic chart for further details about this hospitalization. Patient Condition at Discharge: Poor Plan - Discharge Summary New Discharge Prescriptions: Docusate [Colace] 100 mg PO BID #30 cap Enoxaparin [Lovenox] 100 mg SQ Q12H #60 syr oxyCODONE HCL [OxyIR] 10 mg PO Q6H PRN #30 tab PRN Reason: Pain Discharge Medication List Hydrocodone/Acetaminophen [Scuddy 10-325] 1 tab PO Q4H PRN #60 tab 02/06/17 [Rx] fentaNYL 12MCG/HR PATCH [Duragesic 12MCG/HR] 1 patch TRANSDERM Q72H 03/03/17 [ History] Pazopanib HCl [Votrient] 800 mg PO DAILY 03/06/17 [History] guaiFENesin [Mucinex] 600 mg PO Q12H 03/06/17 [History] Enoxaparin [Lovenox] 100 mg SQ Q12H #60 syr 03/10/17 [Rx] Docusate [Colace] 100 mg PO BID #30 cap 03/13/17 [Rx] oxyCODONE HCL [OxyIR] 10 mg PO Q6H PRN #30 tab 03/13/17 [Rx] Follow up Appointment(s)/Referral(s): Kurt Armando MD [STAFF PHYSICIAN] - 03/16/17 11:45 am Evelyn Negrete MD [Primary Care Provider] - 1 Week [facility], [NON-STAFF] - 1 Week Patient Instructions/Handouts: Pulmonary Embolism (DC) Activity/Diet/Wound Care/Special Instructions: Regular diet as tolerated. LOVENOX PRESCRIPTION IS AT [facility]. [employer].
--- NOTE | 2017-03-20 14:56 | CDI ---
In responding to this query, please exercise your independent professional judgment. The [facility] Coding Staff and Clinical Documentation Specialists appreciate your assistance in clarifying documentation, maintaining compliance with coding guidelines, accurately documenting patients condition and capturing severity of illness. The fact that a question is asked does not imply that any particular answer is desired or expected. Communication forms are a method of clarifying documentation and are not made part of the Legal Health Record. Thank you in advance for your clarification. Last Revision, January 2016 Guicho Scott [address] [place] [address] Documentation Clarification Form Date: 03/20/2017 2:43:00 PM From: Vivien Graham Admit Date: 03/06/2017 1:59:00 AM Patient Name: Ever Givens Visit Number: [id number] Discharge Date: 03/20/17 Dr. Anna Devlin 62 year old male admitted in acute on chronic hypoxic respiratory failure. You stated in H&P and DS that the PE most likely chronic. The pulmonary merchandising consultant documented that the PE mostly likely acute. Added Heparin and switched to subcu Lovenox. Acute PE Chronic PE Acute on Chronic PE Other, please specifiy Clinically unable to determine Please document confirmation of the diagnosis in your discharge summary, along with its associated clinical indicators (i.e., signs, symptoms, findings, treatments, monitoring). If this condition was ruled out or documented in error, please indicate in your progress notes and/or discharge summary. FYI: Press F11 to launch patient chart Place X here if this finding has no clinical significance, is not applicable or if you are not able to provide any additional documentation. JEREMY Leong, CCS, AHIHI Certified I-10 Aerial Installer/[place]/Aerial Installer II If you have any questions or concerns please contact Ashia Marquez, [employer], Guicho Scott @ [phone] Chronic PE MTDD
== END 2017-03-13 18:00 | disposition home health service (06) | DRG 189 ==
LOC: EC 22:45 → 6ICU 03-06 01:59 → 6SEL 03-06 15:42 → 4MS4W 03-08 17:53 → 5ONC 03-10 21:30
PROVIDERS: ADMIT Internal Medicine; ATTEND Internal Medicine
PROC: 0BPQX0Z Removal of Drainage Device from Pleura, External Approach (ICD-10-PCS; principal; 2017-03-09)
DX: J96.21 Acute and chronic respiratory failure with hypoxia (principal); I82.0 Budd-Chiari syndrome; J91.0 Malignant pleural effusion; C78.00 Secondary malignant neoplasm of unspecified lung; C79.51 Secondary malignant neoplasm of bone; C78.7 Secondary malignant neoplasm of liver and intrahepatic bile duct; I27.82 Chronic pulmonary embolism; C64.1 Malignant neoplasm of right kidney, except renal pelvis; G89.3 Neoplasm related pain (acute) (chronic); G89.4 Chronic pain syndrome; K29.70 Gastritis, unspecified, without bleeding; F12.90 Cannabis use, unspecified, uncomplicated; Z99.81 Dependence on supplemental oxygen; Z92.3 Personal history of irradiation; Z92.21 Personal history of antineoplastic chemotherapy; Z79.01 Long term (current) use of anticoagulants; Z79.899 Other long term (current) drug therapy; Z87.891 Personal history of nicotine dependence
CPT/HCPCS: 36415; 71010; 71020; 71275; 74000; 74020; 74177; 76705; 80053; 81001; 81003; 82550; 82553; 83605; 83735; 83880; 84100; 84484; 85025; 85610; 85730; 87040; 87086; 93005; 96365; 96376; 99285

== ENCOUNTER 2017-04-28 19:03 | Emergency (ER) | payer OTHER ==
[2017-04-28] MEDS ORDERED: SODIUM CHLORIDE 0.9% 500 ML IV STA (19:27)
--- NOTE | 2017-04-28 19:30 | ED ---
General Adult HPI - General Chief complaint: Urogenital Stated complaint: blood in urine Time Seen by Provider: 04/28/17 19:16 Source: patient, RN notes reviewed Mode of arrival: wheelchair Limitations: no limitations - History of Present Illness Initial comments: 62-year-old male presents to the emergency department with a chief complaint of gross hematuria. Patient is currently on Lovenox due to the fact that he has renal cancer and they do not know if he had clot or if he has cancer cilia covering him with blood thinner. Patient states today he just started to have bright red blood per urine. Patient states he has no pain. Patient states actually his cancer pain has improved over the Last 2 days. Patient states there is no falls traumas or injuries. Patient states she was concerned due to taking recently. Patient. Patient denies any lightheadedness or dizziness. Patient denies any dark stools. Patient denies any recent fever, chills, shortness of breath, chest pain, back pain, abdominal pain, nausea vomiting, numbness or tingling, dysuria, constipation or diarrhea, headaches or visual changes, or any other current symptoms. - Related Data Home Medications Medication Instructions Recorded Confirmed fentaNYL 12MCG/HR PATCH [Duragesic 1 patch TRANSDERM Q72H 03/03/17 04/28/17 12MCG/HR] Pazopanib HCl [Votrient] 800 mg PO DAILY 03/06/17 04/28/17 guaiFENesin [Mucinex] 600 mg PO Q12H 03/06/17 04/28/17 Docusate [Colace] 100 mg PO HS 04/28/17 04/28/17 LORazepam [Ativan] 0.5 mg PO Q6H 04/28/17 04/28/17 Multivitamins, Thera [Multivitamin 1 tab PO DAILY 04/28/17 04/28/17 (formulary)] Scott Bar-3 Fatty Acids [Scott Bar-3] 1,000 mg PO DAILY 04/28/17 04/28/17 Vitamin B-17 1 tab PO DAILY 04/28/17 04/28/17 Xgeva 1 dose SQ Q30D 04/28/17 04/28/17 Previous Rx's Medication Instructions Recorded Enoxaparin [Lovenox] 100 mg SQ Q12H #60 syr 03/10/17 oxyCODONE HCL [OxyIR] 10 mg PO Q6H PRN #30 tab 03/13/17 Allergies Allergy/AdvReac Type Severity Reaction Status Date / Time adhesive tape AdvReac Itching Verified 04/28/17 19:36 Review of Systems ROS Statement: Those systems with pertinent positive or pertinent negative responses have been documented in the HPI. ROS Other: All systems not noted in ROS Statement are negative. Past Medical History Past Medical History: Cancer Additional Past Medical History / Comment(s): recent diagnosis metastatic renal cell cancer History of Any Multi-Drug Resistant Organisms: None Reported Past Surgical History: Ear Surgery, Orthopedic Surgery, Tonsillectomy Past Anesthesia/Blood Transfusion Reactions: No Reported Reaction Past Psychological History: No Psychological Hx Reported Smoking Status: Former smoker - Past Family History Father Family Medical History: Cancer Additional Family Medical History / Comment(s): dad 2015 from leukemia Mother Family Medical History: COPD, CVA/TIA General Exam Limitations: no limitations General appearance: alert, in no apparent distress Head exam: Present: atraumatic, normocephalic, normal inspection Eye exam: Present: normal appearance, PERRL, EOMI. Absent: scleral icterus, conjunctival injection, periorbital swelling ENT exam: Present: normal exam, mucous membranes moist Respiratory exam: Present: normal lung sounds bilaterally. Absent: respiratory distress, wheezes, rales, rhonchi, stridor Cardiovascular Exam: Present: regular rate, normal rhythm, normal heart sounds. Absent: systolic murmur, diastolic murmur, rubs, gallop, clicks GI/Abdominal exam: Present: soft, normal bowel sounds. Absent: distended, tenderness, guarding, rebound, rigid Neurological exam: Present: alert, oriented X3 Psychiatric exam: Present: normal affect, normal mood Skin exam: Present: warm, dry, intact, normal color. Absent: rash Course Vital Signs 04/28/17 04/28/17 04/28/17 19:12 20:42 21:24 Temperature 100.2 F H 98.2 F Pulse Rate 116 H 99 64 Respiratory 20 18 16 Rate Blood Pressure 141/78 127/93 128/78 O2 Sat by Pulse 95 98 97 Oximetry Medical Decision Making - Medical Decision Making 62-year-old male presents emergency Department chief complaint of hematuria. At this time lab work is reviewed as well as ultrasounds. We did contact Dr. choi for the patient would like the patient to continue his current medications including blood thinners to follow-up with him in the office. We discussed the hematuria is most likely due to the carcinoma. He did discuss return parameters with ostomy were informed patient. All the questions have been answered. They will be discharged home at this time. Patient continues to have no pain. - Lab Data Result diagrams: 04/28/17 19:45 04/28/17 19:45 Lab Results 04/28/17 04/28/17 04/28/17 Range/Units 17:20 19:45 19:45 WBC 5.6 (3.8-10.6) k/uL RBC 4.37 (4.30-5.90) m/uL Hgb 13.0 D (13.0-17.5) gm/dL Hct 39.8 (39.0-53.0) % MCV 91.0 (80.0-100.0) fL MCH 29.6 (25.0-35.0) pg MCHC 32.6 (31.0-37.0) g/dL RDW 18.8 H (11.5-15.5) % Plt Count 270 (150-450) k/uL Neutrophils % 63 % Lymphocytes % 28 % Monocytes % 5 % Eosinophils % 2 % Basophils % 0 % Neutrophils # 3.5 (1.3-7.7) k/uL Lymphocytes # 1.6 (1.0-4.8) k/uL Monocytes # 0.3 (0-1.0) k/uL Eosinophils # 0.1 (0-0.7) k/uL Basophils # 0.0 (0-0.2) k/uL Anisocytosis Slight PT (9.0-12.0) sec INR (<1.1) APTT (22.0-30.0) sec Sodium 137 (137-145) mmol/L Potassium 4.4 (3.5-5.1) mmol/L Chloride 104 (98-107) mmol/L Carbon Dioxide 24 (22-30) mmol/L Anion Gap 9 mmol/L BUN 16 (9-20) mg/dL Creatinine 0.76 (0.66-1.25) mg/dL Est GFR (MDRD) Af Amer >60 (>60 ml/min/1.73 sqM) Est GFR (MDRD) Non-Af >60 (>60 ml/min/1.73 sqM) Glucose 104 H (74-99) mg/dL Calcium 8.2 L (8.4-10.2) mg/dL Total Bilirubin 0.5 (0.2-1.3) mg/dL AST 22 (17-59) U/L ALT 33 (21-72) U/L Alkaline Phosphatase 91 (38-126) U/L Total Protein 6.3 (6.3-8.2) g/dL Albumin 3.2 L (3.5-5.0) g/dL Urine Color Dark Red Urine Appearance Bloody (Clear) Urine RBC >182 H (0-5) /hpf Urine WBC 12 H (0-5) /hpf 04/28/17 Range/Units 19:45 WBC (3.8-10.6) k/uL RBC (4.30-5.90) m/uL Hgb (13.0-17.5) gm/dL Hct (39.0-53.0) % MCV (80.0-100.0) fL MCH (25.0-35.0) pg MCHC (31.0-37.0) g/dL RDW (11.5-15.5) % Plt Count (150-450) k/uL Neutrophils % % Lymphocytes % % Monocytes % % Eosinophils % % Basophils % % Neutrophils # (1.3-7.7) k/uL Lymphocytes # (1.0-4.8) k/uL Monocytes # (0-1.0) k/uL Eosinophils # (0-0.7) k/uL Basophils # (0-0.2) k/uL Anisocytosis PT 10.3 (9.0-12.0) sec INR 1.0 (<1.1) APTT 27.4 (22.0-30.0) sec Sodium (137-145) mmol/L Potassium (3.5-5.1) mmol/L Chloride (98-107) mmol/L Carbon Dioxide (22-30) mmol/L Anion Gap mmol/L BUN (9-20) mg/dL Creatinine (0.66-1.25) mg/dL Est GFR (MDRD) Af Amer (>60 ml/min/1.73 sqM) Est GFR (MDRD) Non-Af (>60 ml/min/1.73 sqM) Glucose (74-99) mg/dL Calcium (8.4-10.2) mg/dL Total Bilirubin (0.2-1.3) mg/dL AST (17-59) U/L ALT (21-72) U/L Alkaline Phosphatase (38-126) U/L Total Protein (6.3-8.2) g/dL Albumin (3.5-5.0) g/dL Urine Color Urine Appearance (Clear) Urine RBC (0-5) /hpf Urine WBC (0-5) /hpf - Radiology Data Radiology results: report reviewed, image reviewed Disposition Clinical Impression: Hematuria Disposition: HOME SELF-CARE Condition: Stable Instructions: Hematuria (ED) Additional Instructions: Please use medication as discussed. Please follow up with family doctor if symptoms have not improved over the next two days. Please return to the emergency room if your symptoms increase or worsen or for any other concerns. Referrals: Kamari Gomez MD [Primary Care Provider] - 1-2 days Time of Disposition: 21:44
[2017-04-28 20:22] LABS: Anisocytosis Slight; Basophils % (A) 0 %; CH 29.5; CHCM 32.5; Eosinophils # (A) 0.1 k/uL (0-0.7); Eosinophils % (A) 2 %; HCT 39.8 % (39.0-53.0); HDW 3.01; Luc # (Auto) 0.12; Luc % (Auto) 2; Lymphocytes # (A) 1.6 k/uL (1.0-4.8); Lymphocytes % (A) 28 %; MCH 29.6 pg (25.0-35.0); MCHC 32.6 g/dL (31.0-37.0); Monocytes # (A) 0.3 k/uL (0-1.0); Monocytes % (A) 5 %; Neutrophils # (A) 3.5 k/uL (1.3-7.7); Neutrophils % (A) 63 %; RBC 4.37 m/uL (4.30-5.90); RDW 18.8 % (11.5-15.5); WBC 5.6 k/uL (3.8-10.6); WBC (Perox) 5.56
[2017-04-28 20:28] LABS: Particle Count 46780; RBC,Urine >182 /hpf (0-5); WBC,Urine 12 /hpf (0-5)
[2017-04-28 20:29] LABS: Appearance,Urine Bloody (Clear); UA Billing (MACRO vs. MICRO) MICRO
[2017-04-28 20:30] LABS: ALT 33 U/L (21-72); AST 22 U/L (17-59); Alkaline Phosphatase 91 U/L (38-126); Anion Gap 9 mmol/L; Blood Urea Nitrogen 16 mg/dL (9-20); Calcium 8.2 mg/dL (8.4-10.2); Carbon Dioxide 24 mmol/L (22-30); Chloride 104 mmol/L (98-107); Glucose 104 mg/dL (74-99); Non-African American GFR(MDRD) >60 (>60 ml/min/1.73 sqM); Potassium 4.4 mmol/L (3.5-5.1); Sodium 137 mmol/L (137-145); Total Bilirubin 0.5 mg/dL (0.2-1.3); Total Protein 6.3 g/dL (6.3-8.2)
[2017-04-28 20:37] LABS: Partial Thromboplastin Time 27.4 sec (22.0-30.0); Prothrombin Time 10.3 sec (9.0-12.0)
--- NOTE | 2017-04-28 20:45 | US ---
EXAMINATION TYPE: US kidneys/renal and bladder DATE OF EXAM: 04/28/2017 COMPARISON: US & CT CLINICAL HISTORY: Pain. Hematuria EXAM MEASUREMENTS: Right Kidney: 13.8 x 6.9 x 7.0 cm Left Kidney: 12.8 x 6.8 x 6.1 cm Right Kidney: 12.0 x 10.1 x 11.9cm heterogeneous vascular mass Left Kidney: 1.4cm cystic area medial superior pole Bladder: not fully distended, wnl as seen Bilateral Jets seen: yes IMPRESSION: There is a large predominantly solid mass with vascular flow involving the anterior aspect of the rig ht kidney is consistent with renal tumor. This appears unchanged compared to the CT scan of 12/27/2016 . No renal obstruction.
[2017-04-28 22:08] VITALS: BP 130/76; PULSE 66; RESP 18; TEMP 98.3
== END 2017-04-28 22:05 | disposition home or self-care (01) ==
LOC: EC 19:03
DX: R31.9 Hematuria, unspecified (principal); Z87.891 Personal history of nicotine dependence; Z79.899 Other long term (current) drug therapy; Z91.048 Other nonmedicinal substance allergy status; Z85.528 Personal history of other malignant neoplasm of kidney
CPT/HCPCS: 36415; 76770; 80053; 81001; 85025; 85610; 85730; 87086; 99284

== ENCOUNTER → 2017-05-19 | Outpatient (CLI) | payer OTHER ==
[2017-05-19 15:19] LABS: Blood Urea Nitrogen 17 mg/dL (9-20); Non-African American GFR(MDRD) >60 (>60 ml/min/1.73 sqM)
--- NOTE | 2017-05-19 15:55 | CT ---
EXAMINATION TYPE: CT brain w con DATE OF EXAM: 05/19/2017 COMPARISON: 02/09/2017 HISTORY: Blurred vision. History of renal cell cancer. CT DLP: 1121.00 mGycm Automated exposure control for dose reduction was used. CONTRAST: CT scan of the head is performed with IV Contrast, patient injected with 100 mL of Omnipaque 300. FINDINGS: There are destructive lesions involving the frontal bone bilaterally which are also noted on the prev ious exam. There also is a hyperdense lesion within the posterior right occipital parietal junction m easuring 8 mm. This likely represents a enhancing lesion rather than hemorrhage however noncontrast i maging was not performed. Changes of chronic sinusitis noted. IMPRESSION: 1. There now is a 8 mm hyperdense lesion in the posterior right occipital parietal junction. This lik дмитрий represents enhancing area of metastasis rather than a hemorrhage or hemorrhagic metastases but co uld be correlated with MRI or noncontrast CT. 2. Stable destructive lesions involving the frontal calvarium bilaterally unchanged from the previous exam extending into the right supraorbital region.
--- NOTE | 2017-05-19 18:43 | CT ---
EXAMINATION TYPE: CT brain wo con DATE OF EXAM: 05/19/2017 COMPARISON: NONE HISTORY: History of renal cancer, vision changes. CT DLP: 1004.00 mGycm Automated exposure control for dose reduction was used. FINDINGS: This noncontrast CT was obtained to further characterize the 8 mm right occipital lesion se en on the contrast CT earlier today. On the present study the lesion is not hyperdense, and therefore the finding represents contrast enhancement with interruption of the blood brain barrier - rather th an focal hemorrhage or calcification. Previously seen destructive skeletal lesions are redemonstrated. IMPRESSION: 1. NEGATIVE FOR HEMORRHAGE. 2. METASTATIC NEOPLASTIC CHANGES REDEMONSTRATED.
== END | disposition home or self-care (01) ==
LOC: RADCTMAIN 14:39
PROVIDERS: ATTEND Internal Medicine Hematology & Oncology
DX: G93.89 Other specified disorders of brain (principal); C64.1 Malignant neoplasm of right kidney, except renal pelvis; H53.10 Unspecified subjective visual disturbances
CPT/HCPCS: 82565; 84520; 70470; 36415; Q9967; 70450; 70460

== ENCOUNTER → 2017-05-22 | Outpatient (CLI) | payer OTHER ==
--- NOTE | 2017-05-22 20:56 | MR ---
EXAMINATION TYPE: MR brain wo/w con DATE OF EXAM: 05/22/2017 7:18 PM COMPARISON: NONE HISTORY: Renal ca Dec 2016, abn CT brain CONTRAST: Patient received 20 mL intravenous MultiHance gadolinium contrast. Multiplanar and multispin-echo imaging of the brain was performed . Pre and post contrast enhanced i mages are obtained. The ventricles, basal cisterns and sulci overlying the cerebral convexities are mildly enlarged. There is evidence of mild periventricular white matter ischemic demyelination. 2 mm enhancing lesion left temporal lobe image 29 of 80, 8 mm right occipital enhancing lesion image 35 and 4.4 mm focal enhancing lesion right frontal lobe all compatible with metastatic disease. Bifro ntal metastatic lesions are noted to the calvarium with epidural extension and mild enhancement. Ther e is also metastatic lesion to the right supraorbital calvarium. Remote deep white matter insults are also noted. Diffusion-weighted imaging demonstrates mildly intense focus of increased signal within the left cent rum semioval bilaterally as well as the right salgado radiata anteriorly. These foci may reflect relat ively recent deep white matter ischemic insults versus areas of nonenhancing metastatic disease. There is no evidence for midline shift or mass effect. Chronic ethmoidal sinusitis. Mastoid air cells are well-aerated. IMPRESSION: 1. Metastatic disease as discussed with 3 enhancing lesions identified. 2. Bony calvarial metastases with epidural extension and mild enhancement. 3.Diffusion-weighted imaging demonstrates mildly intense focus of increased signal within the left ce ntrum semioval bilaterally as well as the right salgado radiata anteriorly. These foci may reflect rel atively recent deep white matter ischemic insults versus areas of nonenhancing metastatic disease.
== END ==
LOC: RADMRIMAIN 18:22
PROVIDERS: ATTEND Radiology Radiation Oncology
DX: C79.51 Secondary malignant neoplasm of bone (principal)
CPT/HCPCS: 70553; A9577

== ENCOUNTER 2017-05-25 20:55 | Inpatient (IN) | payer OTHER ==
[2017-05-25] MEDS ORDERED: HYDROmorphone 1 MG/ML 1 ML SYRINGE IVP STA (21:17)
[2017-05-25] MEDS ORDERED: ONDANSETRON 4 MG/2 ML VIAL IVP STA (21:17)
[2017-05-25] MEDS ORDERED: RX INFO: IV CONTRAST WAS GIVEN 1 EACH MISC MISCELLANE PRN (21:17)
[2017-05-25] MEDS ORDERED: SODIUM CHLORIDE 0.9% 1,000 ML IV STA (21:17)
--- NOTE | 2017-05-25 21:20 | ED ---
General Adult HPI - General Chief complaint: Abdominal Pain Stated complaint: right side abdominal pain/cancer patient Time Seen by Provider: 05/25/17 21:12 Source: patient, RN notes reviewed Mode of arrival: wheelchair Limitations: no limitations - History of Present Illness Initial comments: 62-year-old male presents to the emergency room chief complaint of right-sided abdominal pain. Patient states that he's had this pain for the last day. Patient states he had vomiting yesterday with some diarrhea. Patient states he has had this pain before but they never found a cause for her. Patient states he often contributed to anxiety due to the recent passing of his mother. Patient states that increased in intensity to a 10 out of 10 and minimal left symptoms about a 6 out of 10. Patient states he was concerned due to his pains without that he should be evaluated. Patient does admit to history of renal cell cancer. Patient denies any surgeries on the abdomen. Patient denies any recent fever, chills, shortness of breath, chest pain, back pain, numbness or tingling, dysuria or hematuria, constipation or diarrhea, headaches or visual changes, or any other current symptoms. - Related Data Home Medications Medication Instructions Recorded Confirmed Pazopanib HCl [Votrient] 800 mg PO DAILY 03/06/17 05/25/17 guaiFENesin [Mucinex] 600 mg PO Q12H 03/06/17 05/25/17 Docusate [Colace] 100 mg PO DAILY PRN 04/28/17 05/25/17 LORazepam [Ativan] 0.5 mg PO Q6H 04/28/17 05/25/17 Vitamin B-17 1 tab PO DAILY 04/28/17 05/25/17 Xgeva 1 dose SQ Q30D 04/28/17 05/25/17 Calcium Carbonate [Calcium] 600 mg PO DAILY 05/25/17 05/25/17 Cholecalciferol [Vitamin D3] 1,000 unit PO DAILY 05/25/17 05/25/17 Dexamethasone [Hexadrol] See Taper PO DAILY 05/25/17 05/25/17 Enoxaparin [Lovenox] 100 mg SQ BID@0800,2000 05/25/17 05/25/17 Loperamide [Imodium] 2 mg PO QID PRN 05/25/17 05/25/17 Magnesium 200 mg PO DAILY 05/25/17 05/25/17 Simethicone [Gas-X] 125 mg PO ACHS PRN 05/25/17 05/25/17 fentaNYL 50MCG/HR PATCH [Duragesic 1 patch TRANSDERM Q72H 05/25/17 05/25/17 50MCG/HR] oxyCODONE HCL 10 mg PO Q6H PRN 05/25/17 05/25/17 Allergies Allergy/AdvReac Type Severity Reaction Status Date / Time adhesive tape AdvReac Itching Verified 05/25/17 22:05 Review of Systems ROS Statement: Those systems with pertinent positive or pertinent negative responses have been documented in the HPI. ROS Other: All systems not noted in ROS Statement are negative. Past Medical History Past Medical History: Cancer Additional Past Medical History / Comment(s): recent diagnosis metastatic renal cell cancer History of Any Multi-Drug Resistant Organisms: None Reported Past Surgical History: Ear Surgery, Orthopedic Surgery, Tonsillectomy Past Anesthesia/Blood Transfusion Reactions: No Reported Reaction Past Psychological History: No Psychological Hx Reported Smoking Status: Former smoker Past Alcohol Use History: None Reported Past Drug Use History: Marijuana - Past Family History Father Family Medical History: Cancer Additional Family Medical History / Comment(s): dad 2016 from leukemia Mother Family Medical History: COPD, CVA/TIA General Exam - General Exam Comments Initial Comments: General: The patient is awake and alert, in no distress, and does not appear acutely ill. Eye: Pupils are equal, round and reactive to light, extra-ocular movements are intact; there is normal conjunctiva bilaterally. No signs of icterus. Ears, nose, mouth and throat: There are moist mucous membranes. Neck: The neck is supple, there is no tenderness. Cardiovascular: There is a regular rate and rhythm. No murmur, rub or gallop is appreciated. Respiratory: Lungs are clear to auscultation, respirations are non-labored, breath sounds are equal. No wheezes, stridor, rales, or rhonchi. Gastrointestinal: Soft, non-distended, mildly tender in the right side of the abdomen without masses or organomegaly noted. There is no rebound or guarding present. No CVA tenderness. Bowel sounds are unremarkable. Back: There is no tenderness to palpation in the midline. There is no obvious deformity. No rashes noted. Musculoskeletal: Normal ROM, no tenderness, There is no pedal edema. There is no calf tenderness or swelling. Sensation intact. Pulses equal bilaterally 2+. Neurological: CN II-XII intact, There are no obvious motor or sensory deficits. Coordination appears grossly intact. Speech is normal. Skin: Skin is warm and dry and no rashes or lesions are noted. Psychiatric: Cooperative, appropriate mood & affect, normal judgment. Limitations: no limitations Course Vital Signs 05/25/17 20:57 Temperature 97.1 F L Pulse Rate 120 H Respiratory 18 Rate Blood Pressure 150/92 O2 Sat by Pulse 98 Oximetry - Reevaluation(s) Reevaluation #1: 05/26/17 00:04 was ordered however the family would like us to hold off until he speaks with the doctors due to the fact the patient was told not any blood thinners due to an upcoming brain procedures. EKG Findings - EKG Comments: EKG Findings:: sinus tachycardia 114 bpm, normal axis, no atopy, no S-T depressions or elevations, Medical Decision Making - Medical Decision Making 62-year-old male presents to the emergency Department chief complaint abdominal pain.at this time CAT scan and ultrasound are reviewed. At this to be a femoral DVT. At this time we did start patient on high intensity heparin. We will admit to Dr. Pires's group for Dr. Torres. The patient is in agreement with this plan all questions have been answered. - Lab Data Result diagrams: 05/25/17 21:43 05/25/17 21:43 Lab Results 05/25/17 05/25/17 05/25/17 Range/Units 20:30 21:43 21:43 WBC 13.7 H (3.8-10.6) k/uL RBC 4.69 (4.30-5.90) m/uL Hgb 14.3 (13.0-17.5) gm/dL Hct 42.3 (39.0-53.0) % MCV 90.2 (80.0-100.0) fL MCH 30.5 (25.0-35.0) pg MCHC 33.9 (31.0-37.0) g/dL RDW 18.8 H (11.5-15.5) % Plt Count 293 (150-450) k/uL Neutrophils % 86 % Lymphocytes % 9 % Monocytes % 5 % Eosinophils % 1 % Basophils % 0 % Neutrophils # 11.7 H (1.3-7.7) k/uL Lymphocytes # 1.2 (1.0-4.8) k/uL Monocytes # 0.7 (0-1.0) k/uL Eosinophils # 0.1 (0-0.7) k/uL Basophils # 0.0 (0-0.2) k/uL Anisocytosis Slight PT (9.0-12.0) sec INR (<1.2) APTT (22.0-30.0) sec Sodium 133 L (137-145) mmol/L Potassium 4.4 (3.5-5.1) mmol/L Chloride 99 (98-107) mmol/L Carbon Dioxide 23 (22-30) mmol/L Anion Gap 11 mmol/L BUN 19 (9-20) mg/dL Creatinine 0.70 (0.66-1.25) mg/dL Est GFR (MDRD) Af Amer >60 (>60 ml/min/1.73 sqM) Est GFR (MDRD) Non-Af >60 (>60 ml/min/1.73 sqM) Glucose 118 H (74-99) mg/dL Calcium 8.9 (8.4-10.2) mg/dL Total Bilirubin 0.5 (0.2-1.3) mg/dL AST 19 (17-59) U/L ALT 35 (21-72) U/L Alkaline Phosphatase 104 (38-126) U/L Total Protein 6.4 (6.3-8.2) g/dL Albumin 3.5 (3.5-5.0) g/dL Amylase 61 (30-110) U/L Lipase 230 (23-300) U/L Urine Color Yellow Urine Appearance Clear (Clear) Urine pH 7.0 (5.0-8.0) Ur Specific [place] 1.013 (1.001-1.035) Urine Protein 2+ H (Negative) Urine Glucose (UA) Negative (Negative) Urine Ketones Negative (Negative) Urine Blood Moderate H (Negative) Urine Nitrite Negative (Negative) Urine Bilirubin Negative (Negative) Urine Urobilinogen <2.0 (<2.0) mg/dL Ur Leukocyte Esterase Negative (Negative) Urine RBC 10 H (0-5) /hpf Urine WBC 2 (0-5) /hpf Urine Mucus Rare H (None) /hpf 05/25/17 Range/Units 21:43 WBC (3.8-10.6) k/uL RBC (4.30-5.90) m/uL Hgb (13.0-17.5) gm/dL Hct (39.0-53.0) % MCV (80.0-100.0) fL MCH (25.0-35.0) pg MCHC (31.0-37.0) g/dL RDW (11.5-15.5) % Plt Count (150-450) k/uL Neutrophils % % Lymphocytes % % Monocytes % % Eosinophils % % Basophils % % Neutrophils # (1.3-7.7) k/uL Lymphocytes # (1.0-4.8) k/uL Monocytes # (0-1.0) k/uL Eosinophils # (0-0.7) k/uL Basophils # (0-0.2) k/uL Anisocytosis PT 10.1 (9.0-12.0) sec INR 1.0 (<1.2) APTT 23.2 (22.0-30.0) sec Sodium (137-145) mmol/L Potassium (3.5-5.1) mmol/L Chloride (98-107) mmol/L Carbon Dioxide (22-30) mmol/L Anion Gap mmol/L BUN (9-20) mg/dL Creatinine (0.66-1.25) mg/dL Est GFR (MDRD) Af Amer (>60 ml/min/1.73 sqM) Est GFR (MDRD) Non-Af (>60 ml/min/1.73 sqM) Glucose (74-99) mg/dL Calcium (8.4-10.2) mg/dL Total Bilirubin (0.2-1.3) mg/dL AST (17-59) U/L ALT (21-72) U/L Alkaline Phosphatase (38-126) U/L Total Protein (6.3-8.2) g/dL Albumin (3.5-5.0) g/dL Amylase (30-110) U/L Lipase (23-300) U/L Urine Color Urine Appearance (Clear) Urine pH (5.0-8.0) Ur Specific [place] (1.001-1.035) Urine Protein (Negative) Urine Glucose (UA) (Negative) Urine Ketones (Negative) Urine Blood (Negative) Urine Nitrite (Negative) Urine Bilirubin (Negative) Urine Urobilinogen (<2.0) mg/dL Ur Leukocyte Esterase (Negative) Urine RBC (0-5) /hpf Urine WBC (0-5) /hpf Urine Mucus (None) /hpf - Radiology Data Radiology results: report reviewed, image reviewed Disposition Clinical Impression: Right sided abdominal pain, Renal cell carcinoma, Metastatic carcinoma, Hematuria, Left femoral vein DVT Disposition: ADMITTED IP TO THIS [facility] Condition: Stable Referrals: Kamari Gomez MD [Primary Care Provider] - 1-2 days Time of Disposition: 01:18 Decision Date: 05/26/17 Decision Time: 01:18
[2017-05-25 21:58] LABS: Anisocytosis Slight; Basophils % (A) 0 %; CHCM 33.3; Eosinophils # (A) 0.1 k/uL (0-0.7); Eosinophils % (A) 1 %; HCT 42.3 % (39.0-53.0); HGB 14.3 gm/dL (13.0-17.5); Luc # (Auto) 0.05; Luc % (Auto) 0; Lymphocytes # (A) 1.2 k/uL (1.0-4.8); Lymphocytes % (A) 9 %; MCH 30.5 pg (25.0-35.0); MCHC 33.9 g/dL (31.0-37.0); MCV 90.2 fL (80.0-100.0); Mean Platelet Volume 7.3; Monocytes # (A) 0.7 k/uL (0-1.0); Monocytes % (A) 5 %; Neutrophils # (A) 11.7 k/uL (1.3-7.7); Neutrophils % (A) 86 %; RBC 4.69 m/uL (4.30-5.90); RDW 18.8 % (11.5-15.5); WBC 13.7 k/uL (3.8-10.6); WBC (Perox) 13.83
[2017-05-25 22:06] LABS: ALT 35 U/L (21-72); AST 19 U/L (17-59); Alkaline Phosphatase 104 U/L (38-126); Amylase 61 U/L (30-110); Anion Gap 11 mmol/L; Blood Urea Nitrogen 19 mg/dL (9-20); Calcium 8.9 mg/dL (8.4-10.2); Carbon Dioxide 23 mmol/L (22-30); Chloride 99 mmol/L (98-107); Glucose 118 mg/dL (74-99); Non-African American GFR(MDRD) >60 (>60 ml/min/1.73 sqM); Potassium 4.4 mmol/L (3.5-5.1); Sodium 133 mmol/L (137-145); Total Bilirubin 0.5 mg/dL (0.2-1.3); Total Protein 6.4 g/dL (6.3-8.2)
[2017-05-25 22:10] LABS: Partial Thromboplastin Time 23.2 sec (22.0-30.0); Prothrombin Time 10.1 sec (9.0-12.0)
[2017-05-25 22:55] LABS: Appearance,Urine Clear (Clear); Bilirubin,Urine Negative (Negative); Glucose,Urine (UA) Negative (Negative); Ketones,Urine Negative (Negative); Leukocyte Esterase,Urine Negative (Negative); Mucus,Urine Rare /hpf; Nitrite,Urine Negative (Negative); Particle Count 1064; Protein,Urine 2+ (Negative); RBC,Urine 10 /hpf (0-5); Specific Gravity,Urine 1.013 (1.001-1.035); UA Billing (MACRO vs. MICRO) MICRO; Urobilinogen,Urine <2.0 mg/dL (<2.0); WBC,Urine 2 /hpf (0-5)
--- NOTE | 2017-05-25 23:39 | CT ---
EXAM: CT Abdomen and Pelvis With Intravenous Contrast CLINICAL HISTORY: Reason: Pain TECHNIQUE: Axial computed tomography images of the abdomen and pelvis with intravenous contrast. CTDI is 14.6, 14.6 mGy and DLP is 1314.5 mGy-cm. This CT exam was performed using one or more of the following dose reduction techniques: automated exposure control, adjustment of the mA and/or kV according to patient size, and/or use of iterative reconstruction technique. COMPARISON: 03/06/2017 FINDINGS: Lower thorax: Scattered bibasilar pulmonary nodules concerning for metastases are grossly stable in size and number. Stable moderate partially loculated right pleural effusion. ABDOMEN: Liver: Scattered small foci of hypoattenuation in the liver concerning for metastatic disease appear slightly prominent as compared to prior examination. For example, lesion in the caudate lobe now measures 1.6 cm, previously 2.3 cm on 03/06/2017. Gallbladder and bile ducts: Unremarkable. No calcified stones. Pancreas: Unremarkable. Spleen: Unremarkable. Adrenals: New left adrenal nodule is concerning for a metastasis and measures 2.3 x 1.3 cm. Interval decrease in size of a right adrenal nodule concerning for a metastasis. Kidneys and ureters: Slight interval decrease in size of a complex right renal mass, now measuring 13.5 x 6 cm (previously 14.3 x 7.2 cm on 03/06/2017). Decreased enhancement of the right kidney is nonspecific. Persistent right perinephric stranding. Subcentimeter foci of hypoattenuation in the left kidney are too small to characterize. Stomach and bowel: Unremarkable. Bowel is nondilated. Appendix: No findings to suggest acute appendicitis. PELVIS: Bladder: Unremarkable. Reproductive: Unremarkable as visualized. ABDOMEN and PELVIS: Intraperitoneal space: Unremarkable. No free air. Bones/joints: Stable scattered lytic metastases with associated soft tissue masses in the pelvis, right proximal femur, right sacrum, and L4 and L5. Soft tissues: Small fat-containing left inguinal hernia. Vasculature: Stable nonocclusive filling defect in the inferior vena cava concerning for tumor thrombus. Filling defect in the left common and internal iliac veins is concerning for thrombus. Inhomogeneous enhancement of the left common iliac vein may represent admixture artifact or thrombus. Atherosclerosis of the abdominal aorta without evidence of aneurysm. Lymph nodes: Unremarkable. No enlarged lymph nodes. IMPRESSION: Mixed response to treatment with decrease in size of a large complex right renal mass and hepatic and right adrenal metastases. Decreased enhancement of the right kidney is nonspecific and may be related to infarction, infection, or tumor infiltration. Consider correlation with urinalysis. New suspected left adrenal metastasis. Stable pulmonary and osseous metastatic disease. Filling defect in the left common and internal iliac veins is concerning for thrombus. Inhomogeneous enhancement of the left common iliac vein may represent admixture artifact or thrombus. Duplex venous ultrasound may be considered for further characterization.
[2017-05-25] MEDS ORDERED: HEPARIN SODIUM,PORCINE 5,000 UNIT/ML 1 ML VIAL IV ONE (23:49)
[2017-05-25] MEDS ORDERED: HEPARIN SODIUM,PORCINE 5,000 UNIT/ML 1 ML VIAL IV PRN (23:49)
[2017-05-25] MEDS ORDERED: HEPARIN SODIUM,PORCINE/D5W PMX 25,000 UNIT in DEXTROSE/WATER 1 500ML.BAG IV SCH (23:49)
--- NOTE | 2017-05-26 00:58 | US ---
EXAM: US Duplex Left Lower Extremity Veins CLINICAL HISTORY: Reason: Pain TECHNIQUE: The lower extremity deep venous system is examined utilizing real time linear array sonography with graded compression, doppler sonography and color-flow sonography. COMPARISON: 01/30/2017 FINDINGS: Deep veins: Non-occluding thrombus is present in the left proximal femoral vein and deep femoral vein. No evidence of thrombus in the left external iliac, common femoral, and popliteal veins. Superficial veins: Unremarkable as visualized. Soft tissues: No acute findings. IMPRESSION: Non-occluding thrombus is present in the left proximal femoral and deep femoral veins. [employer] 05/26/17 01:03 Verify Receipt Verified receipt with ELLYN Berry on 05/26 01: 03 (-04:00)
[2017-05-26] MEDS ORDERED: NALOXONE 0.4 MG/ML 1 ML VIAL IV PRN (01:18)
[2017-05-26] MEDS ORDERED: ONDANSETRON 4 MG/2 ML VIAL IVP PRN (01:18)
[2017-05-26] MEDS ORDERED: ACETAMINOPHEN TAB 325 MG TAB PO PRN (01:18)
[2017-05-26] MEDS ORDERED: SIMETHICONE 80 MG CHEWABLE PO PRN (01:20)
[2017-05-26] MEDS ORDERED: LOPERAMIDE 2 MG CAP PO PRN (01:20)
[2017-05-26] MEDS ORDERED: DOCUSATE 100 MG CAP PO PRN (01:20)
[2017-05-26] MEDS ORDERED: guaiFENesin 600 MG TABLET.ER PO SCH (01:30)
[2017-05-26] MEDS ORDERED: SODIUM CHLORIDE 0.9% 1,000 ML IV SCH (01:30)
[2017-05-26] MEDS: HYDROmorphone 1 MG/ML 1 ML SYRINGE IV PRN ×2 (02:29→07:12)
[2017-05-26 04:30] VITALS: BMI 30.5
[2017-05-26] MEDS: LORazepam 0.5 MG TAB PO SCH ×2 (05:46→08:49)
[2017-05-26] MEDS ORDERED: ENOXAPARIN 100 MG/ML SYRINGE SQ SCH (08:00)
[2017-05-26 08:09] VITALS: BP 146/93; PULSE 109; TEMP 98.4
[2017-05-26] MEDS ORDERED: MAGNESIUM OXIDE 400 MG TAB PO SCH (09:00)
[2017-05-26] MEDS ORDERED: B COMPLEX-VIT C-VIT E-ZINC 1 EACH TAB PO SCH (09:00)
[2017-05-26] MEDS ORDERED: CALCIUM CARBONATE 500 MG CHEWABLE PO SCH (09:00)
[2017-05-26] MEDS ORDERED: PAZOPANIB HCL 800 MG PO SCH (09:00)
[2017-05-26] MEDS ORDERED: DEXAMETHASONE 4 MG TAB PO SCH (09:00)
[2017-05-26] MEDS ORDERED: CHOLECALCIFEROL 1,000 UNIT TAB PO SCH (09:00)
[2017-05-26] MEDS ORDERED: LORazepam 0.5 MG TAB PO PRN (09:05)
[2017-05-26 09:30] VITALS: RESP 16
--- NOTE | 2017-05-26 11:35 | P.HPIM ---
History of Present Illness 62-year-old male presents to the emergency room chief complaint of right-sided abdominal pain, had an abdominopelvic CT which did show metastatic disease and renal cancer which is contributing to his pain and patient's pain is better controlled with opiate analgesia. Patient is also found to have left femoral DVT extending up to the left inferior vena cava. Patient is on Lovenox which he can he missed a few doses which we believe it has contributed to his acute DVT. Patient was a valid by oncology and hematology and they cleared him for discharge and his abdominal pain improved patient is supposed to attend his mother's and insisting on discharge and patient was subsequently discharged.. Patient states that he's had this pain for the last day. Patient states he had vomiting diarrhea couple days ago which resolved. Patient states he has had this pain before but they never found a cause for her. Patient states he often contributed to anxiety due to the recent passing of his mother. Review of Systems REVIEW OF SYSTEMS: CONSTITUTIONAL: No fever, no malaise, no fatigue. HEENT: No recent visual problems or hearing problems. Denied any sore throat. CARDIOVASCULAR: No chest pain, orthopnea, PND, no palpitations, no syncope. PULMONARY: No shortness of breath, no cough, no hemoptysis. GASTROINTESTINAL: As described in HPI NEUROLOGICAL: No headaches, no weakness, no numbness. HEMATOLOGICAL: Denies any bleeding or petechiae. GENITOURINARY: Denies any burning micturition, frequency, or urgency. MUSCULOSKELETAL/RHEUMATOLOGICAL: Denies any joint pain, swelling, or any muscle pain. ENDOCRINE: Denies any polyuria or polydipsia. The rest of the 14-point review of systems is negative. Past Medical History Past Medical History: Cancer Additional Past Medical History / Comment(s): recent diagnosis metastatic renal cell cancer History of Any Multi-Drug Resistant Organisms: None Reported Past Surgical History: Ear Surgery, Orthopedic Surgery, Tonsillectomy Past Anesthesia/Blood Transfusion Reactions: No Reported Reaction Past Psychological History: No Psychological Hx Reported Smoking Status: Former smoker Past Alcohol Use History: None Reported Past Drug Use History: Marijuana Additional Drug Use History / Comment(s): pt states still smokes marijuana - Past Family History Father Family Medical History: Cancer Additional Family Medical History / Comment(s): dad 2016 from leukemia Mother Family Medical History: COPD, CVA/TIA Medications and Allergies Home Medications Medication Instructions Recorded Confirmed Type Pazopanib HCl [Votrient] 800 mg PO DAILY 03/06/17 05/25/17 History guaiFENesin [Mucinex] 600 mg PO Q12H 03/06/17 05/25/17 History Docusate [Colace] 100 mg PO DAILY PRN 04/28/17 05/25/17 History LORazepam [Ativan] 0.5 mg PO Q6H 04/28/17 05/25/17 History Vitamin B-17 1 tab PO DAILY 04/28/17 05/25/17 History Xgeva 1 dose SQ Q30D 04/28/17 05/25/17 History Calcium Carbonate [Calcium] 600 mg PO DAILY 05/25/17 05/25/17 History Cholecalciferol [Vitamin D3] 1,000 unit PO DAILY 05/25/17 05/25/17 History Dexamethasone [Hexadrol] See Taper PO DAILY 05/25/17 05/25/17 History Enoxaparin [Lovenox] 100 mg SQ BID@0800,2000 05/25/17 05/25/17 History Loperamide [Imodium] 2 mg PO QID PRN 05/25/17 05/25/17 History Magnesium 200 mg PO DAILY 05/25/17 05/25/17 History Simethicone [Gas-X] 125 mg PO ACHS PRN 05/25/17 05/25/17 History fentaNYL 50MCG/HR PATCH [Duragesic 1 patch TRANSDERM Q72H 05/25/17 05/25/17 History 50MCG/HR] oxyCODONE HCL 10 mg PO Q6H PRN 05/25/17 05/25/17 History Allergies Allergy/AdvReac Type Severity Reaction Status Date / Time adhesive tape AdvReac Itching Verified 05/25/17 22:05 Physical Exam Vitals: Vital Signs Temp Pulse Pulse Resp BP BP Pulse Ox 05/26/17 08:00 16 05/26/17 07:00 98.4 F 109 H 18 146/93 96 05/26/17 04:24 97.0 F L 110 H 16 136/92 96 05/26/17 02:49 97 20 160/78 98 05/26/17 01:37 118 H 20 148/99 96 05/26/17 01:35 108 H 20 148/99 96 05/26/17 00:05 104 H 20 156/103 97 05/25/17 23:10 112 H 156/94 96 05/25/17 22:10 92 20 154/89 97 05/25/17 20:57 97.1 F L 120 H 18 150/92 98 Intake and Output 05/25/17 05/26/17 05/26/17 22:59 06:59 14:59 Intake Total 590 450 Balance 590 450 Intake: Oral 590 450 Other: Weight 91.172 kg 91.172 kg PHYSICAL EXAMINATION: GENERAL: The patient is alert and oriented x3, not in any acute distress. Well developed, well nourished. HEENT: Pupils are round and equally reacting to light. EOMI. No scleral icterus. No conjunctival pallor. Normocephalic, atraumatic. No pharyngeal erythema. No thyromegaly. CARDIOVASCULAR: S1 and S2 present. No murmurs, rubs, or gallops. PULMONARY: Chest is clear to auscultation, no wheezing or crackles. ABDOMEN: Soft, nontender, nondistended, normoactive bowel sounds. No palpable organomegaly. MUSCULOSKELETAL: No joint swelling or deformity. EXTREMITIES: No cyanosis, clubbing, or pedal edema. NEUROLOGICAL: Gross neurological examination did not reveal any focal deficits. SKIN: No rashes. Results CBC & Chem 7: 05/25/17 21:43 05/25/17 21:43 Labs: Abnormal Lab Results - Last 24 Hours (Table) 05/25/17 05/25/17 05/25/17 Range/Units 20:30 21:43 21:43 WBC 13.7 H (3.8-10.6) k/uL RDW 18.8 H (11.5-15.5) % Neutrophils # 11.7 H (1.3-7.7) k/uL APTT (22.0-30.0) sec Sodium 133 L (137-145) mmol/L Glucose 118 H (74-99) mg/dL Urine Protein 2+ H (Negative) Urine Blood Moderate H (Negative) Urine RBC 10 H (0-5) /hpf Urine Mucus Rare H (None) /hpf 05/26/17 Range/Units 07:38 WBC (3.8-10.6) k/uL RDW (11.5-15.5) % Neutrophils # (1.3-7.7) k/uL APTT 54.5 H (22.0-30.0) sec Sodium (137-145) mmol/L Glucose (74-99) mg/dL Urine Protein (Negative) Urine Blood (Negative) Urine RBC (0-5) /hpf Urine Mucus (None) /hpf Thrombosis Risk Factor Assmnt - Choose All That Apply Any of the Below Risk Factors Present?: Yes Each Factor Represents 1 point: Age 41-60 years, Obesity (BMI >25) Other Risk Factors: Yes Each Risk Factor Represents 2 Points: Malignancy Each Risk Factor Represents 3 Points: History of DVT/PE Thrombosis Risk Factor Assessment Total Risk Factor Score: 7 Thrombosis Risk Factor Assessment Level: High Risk Assessment and Plan Plan: #1 diffuse abdominal pain: Secondary to metastatic renal cell cancer, patient's pain is well controlled now on present regimen and patient was discharged on the same regimen. #2 left lower limb DVT acute, patient is on Lovenox which she will continue at home. Patient was evaluated by hematology and oncology. #3 metastatic renal cell cancer #4 anxiety and normal bereavement and depression
--- NOTE | 2017-05-26 11:36 | P.DS ---
Providers Date of admission: 05/26/17 02:38 Attending physician: Lon Melendrez Consults: 05/26/17 01:19 Consult Physician Routine Consulting Provider: Matteo Torres Consult Reason/Comments: DVT Do you want consulting provider notified?: Yes Primary care physician: Kamari Gomez [facility] Course: As per HPI Patient Condition at Discharge: Stable Plan - Discharge Summary New Discharge Prescriptions: Continue Pazopanib HCl [Votrient] 800 mg PO DAILY guaiFENesin [Mucinex] 600 mg PO Q12H LORazepam [Ativan] 0.5 mg PO Q6H Vitamin B-17 1 tab PO DAILY Docusate [Colace] 100 mg PO DAILY PRN PRN Reason: Constipation Xgeva 1 dose SQ Q30D Calcium Carbonate [Calcium] 600 mg PO DAILY Cholecalciferol [Vitamin D3] 1,000 unit PO DAILY Dexamethasone [Hexadrol] See Taper PO DAILY Enoxaparin [Lovenox] 100 mg SQ BID@0800,1999 fentaNYL 50MCG/HR PATCH [Duragesic 50MCG/HR] 1 patch TRANSDERM Q72H Loperamide [Imodium] 2 mg PO QID PRN PRN Reason: Loose Stool Magnesium 200 mg PO DAILY oxyCODONE HCL 10 mg PO Q6H PRN PRN Reason: Pain Simethicone [Gas-X] 125 mg PO ACHS PRN PRN Reason: GAS Discharge Medication List Pazopanib HCl [Votrient] 800 mg PO DAILY 03/06/17 [History] guaiFENesin [Mucinex] 600 mg PO Q12H 03/06/17 [History] Docusate [Colace] 100 mg PO DAILY PRN 04/28/17 [History] LORazepam [Ativan] 0.5 mg PO Q6H 04/28/17 [History] Vitamin B-17 1 tab PO DAILY 04/28/17 [History] Xgeva 1 dose SQ Q30D 04/28/17 [History] Calcium Carbonate [Calcium] 600 mg PO DAILY 05/25/17 [History] Cholecalciferol [Vitamin D3] 1,000 unit PO DAILY 05/25/17 [History] Dexamethasone [Hexadrol] See Taper PO DAILY 05/25/17 [History] Enoxaparin [Lovenox] 100 mg SQ BID@0800,199905/25/17 [History] Loperamide [Imodium] 2 mg PO QID PRN 05/25/17 [History] Magnesium 200 mg PO DAILY 05/25/17 [History] Simethicone [Gas-X] 125 mg PO ACHS PRN 05/25/17 [History] fentaNYL 50MCG/HR PATCH [Duragesic 50MCG/HR] 1 patch TRANSDERM Q72H 05/25/17 [ History] oxyCODONE HCL 10 mg PO Q6H PRN 05/25/17 [History] Follow up Appointment(s)/Referral(s): Ayla Hays NPC [Nurse Practitioner] - 05/29/17 10:45 am Kamari Gomez MD [Primary Care Provider] - 05/31/17 11:30 am Patient Instructions/Handouts: Deep Venous Thrombosis (DC) Activity/Diet/Wound Care/Special Instructions: Case discussed with oncology, patient to resume and be discharged home on Lovenox as previously ordered and will follow with oncology next week. ( Patient 's mothers is today at 11:00.) Diet: Cardiac Activity: Limited until follow up Discharge Disposition: HOME SELF-CARE
== END 2017-05-26 10:23 | disposition home or self-care (01) | DRG 948 ==
LOC: EC 20:55 → 5ONC 05-26 02:38
PROVIDERS: ADMIT Internal Medicine; ATTEND Internal Medicine
DX: G89.3 Neoplasm related pain (acute) (chronic) (principal); I82.412 Acute embolism and thrombosis of left femoral vein; C64.9 Malignant neoplasm of unspecified kidney, except renal pelvis; C79.89 Secondary malignant neoplasm of other specified sites; F32.9 Major depressive disorder, single episode, unspecified; F12.90 Cannabis use, unspecified, uncomplicated; R10.84 Generalized abdominal pain; F41.9 Anxiety disorder, unspecified; Z63.4 Disappearance and death of family member; Z79.899 Other long term (current) drug therapy; Z87.891 Personal history of nicotine dependence
CPT/HCPCS: 36415; 74177; 80053; 81001; 82150; 83690; 85025; 85610; 85730; 87040; 87086; 93005

== ENCOUNTER 2017-06-24 13:09 | Inpatient (IN) | payer OTHER ==
[2017-06-24] MEDS ORDERED: SODIUM CHLORIDE 0.9% 500 ML IV STA (13:34)
[2017-06-24] MEDS ORDERED: KETOROLAC 60 MG/2 ML VIAL IVP STA (13:35)
[2017-06-24] MEDS ORDERED: HYDROmorphone 1 MG/ML 1 ML SYRINGE IVP STA (13:35)
--- NOTE | 2017-06-24 13:39 | ED ---
General Adult HPI - General Chief complaint: Back Pain/Injury Stated complaint: CHEST PAIN Time Seen by Provider: 06/24/17 13:10 Source: RN notes reviewed - History of Present Illness Initial comments: This is a 62-year-old male who presents emergency Department complaining of having metastatic cancer unsure of where the cancer began. Patient states the cancer is in his liver kidneys and his bones. Patient is a DO NOT RESUSCITATE. Patient states the pain is back at considerably worse today is in the lower back. Patient denies any injury or trauma. Patient also is experiencing some chest pain which she believes to be related to be metastatic disease. Patient denies any shortness of breath patient denies any diaphoresis patient denies any nausea vomiting diarrhea. The caregiver for the week and came with him and stated that he has got his OxyContin and a patch but this has not been sufficient to control his pain. Patient denies any fever or chills. Patient states movement makes the pain in his back significantly worse. - Related Data Home Medications Medication Instructions Recorded Confirmed Pazopanib HCl [Votrient] 800 mg PO DAILY@0600 03/06/17 06/24/17 Docusate [Colace] 100 mg PO DAILY@1999 PRN 04/28/17 06/24/17 LORazepam [Ativan] 0.5 mg PO BID@0000,0604/28/17 06/24/17 Vitamin B-17 1 tab PO DAILY@1200,199904/28/17 06/24/17 Calcium Carbonate [Calcium] 600 mg PO DAILY@0000 05/25/17 06/24/17 Dexamethasone [Hexadrol] 4 mg PO DAILY@0805/25/17 06/24/17 Enoxaparin [Lovenox] 100 mg SQ BID@08,199905/25/17 06/24/17 Magnesium 200 mg PO DAILY@0000 05/25/17 06/24/17 Simethicone [Gas-X] 125 mg PO DAILY@199905/25/17 06/24/17 oxyCODONE HCL 10 mg PO Q6H PRN 05/25/17 06/24/17 DULoxetine HCL [Cymbalta] 30 mg PO DAILY@199906/24/17 06/24/17 Dexamethasone [Hexadrol] 2 mg PO DAILY@199906/24/17 06/24/17 Sami Stress Otc 1 tab PO DAILY@199906/24/17 06/24/17 Milk Thistle 150 mg PO BID@1199,199906/24/17 06/24/17 fentaNYL 75MCG/HR PATCH [Duragesic 1 patch TRANSDERM Q72H 06/24/17 06/24/17 75MCG/HR] Allergies Allergy/AdvReac Type Severity Reaction Status Date / Time adhesive tape Allergy Itching Verified 06/24/17 14:05 Review of Systems ROS Statement: Those systems with pertinent positive or pertinent negative responses have been documented in the HPI. ROS Other: All systems not noted in ROS Statement are negative. Past Medical History Past Medical History: Cancer Additional Past Medical History / Comment(s): recent diagnosis metastatic renal cell cancer History of Any Multi-Drug Resistant Organisms: None Reported Past Surgical History: Ear Surgery, Orthopedic Surgery, Tonsillectomy Past Anesthesia/Blood Transfusion Reactions: No Reported Reaction Smoking Status: Former smoker - Past Family History Father Family Medical History: Cancer Additional Family Medical History / Comment(s): dad 2016 from leukemia Mother Family Medical History: COPD, CVA/TIA General Exam - General Exam Comments Initial Comments: GENERAL: Patient is well-developed and well-nourished. Patient is nontoxic and well- hydrated and is in moderate distress. ENT: Neck is soft and supple. No significant lymphadenopathy is noted. Oropharynx is clear. Moist mucous membranes. Neck has full range of motion without eliciting any pain. EYES: The sclera were anicteric and conjunctiva were pink and moist. Extraocular movements were intact and pupils were equal round and reactive to light. Eyelids were unremarkable. PULMONARY: Unlabored respirations. Good breath sounds bilaterally. No audible rales rhonchi or wheezing was noted. CARDIOVASCULAR: There is a regular rate and rhythm without any murmurs gallops or rubs. ABDOMEN: Soft and nontender with normal bowel sounds. No palpable organomegaly was noted. There is no palpable pulsatile mass. SKIN: Skin is clear with no lesions or rashes and otherwise unremarkable. NEUROLOGIC: Patient is alert and oriented x3. Cranial nerves II through XII are grossly intact. Motor and sensory are also intact. Normal speech, volume and content. Symmetrical smile. MUSCULOSKELETAL: Normal extremities with adequate strength and full range of motion. No lower extremity swelling or edema. No calf tenderness. LYMPHATICS: No significant lymphadenopathy is noted PSYCHIATRIC: Normal psychiatric evaluation. Normal interpersonal interactions appears functionally intact in deals appropriately with others. No signs of depression. No signs of anxiety. Course Vital Signs 06/24/17 13:32 Temperature 98.5 F Pulse Rate 75 Respiratory 22 Rate Blood Pressure 152/89 O2 Sat by Pulse 98 Oximetry Medical Decision Making - Medical Decision Making EKG shows sinus rhythm with 70 bpm NH interval 210 dresses 82 QT interval 366 QTC is 417. Patient EKG shows no ST segment depression however lead 2 does show some mild ST segment elevation. Patient's potassium was 7.0 I'm repeating the potassium came back at 4.8 within normal range. Patient's troponin came back elevated 3.9 I spoke with cardiology Dr. Padron and he wanted me to treat the patient medically. Patient is already on Lovenox and no heparin will be started. After patient received pain medication she was feeling considerably better - Lab Data Result diagrams: 06/24/17 13:23 06/24/17 14:45 Lab Results 06/24/17 06/24/17 06/24/17 Range/Units 13:23 13:23 13:23 WBC 19.8 H (3.8-10.6) k/uL RBC 3.78 L (4.30-5.90) m/uL Hgb 11.7 L (13.0-17.5) gm/dL Hct 36.8 L (39.0-53.0) % MCV 97.4 D (80.0-100.0) fL MCH 31.1 (25.0-35.0) pg MCHC 31.9 (31.0-37.0) g/dL RDW 19.4 H (11.5-15.5) % Plt Count 98 L D (150-450) k/uL Neutrophils % (Manual) 68 % Band Neutrophils % 16 % Lymphocytes % (Manual) 10 % Monocytes % (Manual) 4 % Metamyelocytes % 2 % Myelocytes % 2 % Neutrophils # (Manual) 16.60 H (1.3-7.7) k/uL Lymphocytes # (Manual) 1.98 (1.0-4.8) k/uL Monocytes # (Manual) 0.79 (0-1.0) k/uL Metamyelocytes # (Man) 0.40 H (0) k/uL Myelocytes # (Manual) 0.40 H (0) k/uL Nucleated RBCs 1 H (0-0) /100 WBC Manual Slide Review Performed Large Platelets Present Polychromasia Present Hypochromasia Slight Anisocytosis Slight Macrocytosis Slight PT (9.0-12.0) sec INR (<1.2) APTT (22.0-30.0) sec Sodium 136 L (137-145) mmol/L Potassium 7.0 H* (3.5-5.1) mmol/L Chloride 103 (98-107) mmol/L Carbon Dioxide 24 (22-30) mmol/L Anion Gap 9 mmol/L BUN 33 H (9-20) mg/dL Creatinine 0.68 (0.66-1.25) mg/dL Est GFR (MDRD) Af Amer >60 (>60 ml/min/1.73 sqM) Est GFR (MDRD) Non-Af >60 (>60 ml/min/1.73 sqM) Glucose 85 (74-99) mg/dL Calcium 9.0 (8.4-10.2) mg/dL Magnesium 1.9 (1.6-2.3) mg/dL Total Bilirubin 1.2 (0.2-1.3) mg/dL AST 131 H (17-59) U/L ALT 59 (21-72) U/L Alkaline Phosphatase 127 H (38-126) U/L Total Creatine Kinase 75 (55-170) U/L CK-MB (CK-2) 8.3 H* (0.0-2.4) ng/mL CK-MB (CK-2) Rel Index 11.1 Troponin I 3.970 H* (0.000-0.034) ng/mL Total Protein 6.7 (6.3-8.2) g/dL Albumin 3.2 L (3.5-5.0) g/dL 06/24/17 06/24/17 Range/Units 13:23 14:45 WBC (3.8-10.6) k/uL RBC (4.30-5.90) m/uL Hgb (13.0-17.5) gm/dL Hct (39.0-53.0) % MCV (80.0-100.0) fL MCH (25.0-35.0) pg MCHC (31.0-37.0) g/dL RDW (11.5-15.5) % Plt Count (150-450) k/uL Neutrophils % (Manual) % Band Neutrophils % % Lymphocytes % (Manual) % Monocytes % (Manual) % Metamyelocytes % % Myelocytes % % Neutrophils # (Manual) (1.3-7.7) k/uL Lymphocytes # (Manual) (1.0-4.8) k/uL Monocytes # (Manual) (0-1.0) k/uL Metamyelocytes # (Man) (0) k/uL Myelocytes # (Manual) (0) k/uL Nucleated RBCs (0-0) /100 WBC Manual Slide Review Large Platelets Polychromasia Hypochromasia Anisocytosis Macrocytosis PT 12.3 H (9.0-12.0) sec INR 1.2 H (<1.2) APTT 30.0 (22.0-30.0) sec Sodium (137-145) mmol/L Potassium 4.8 (3.5-5.1) mmol/L Chloride (98-107) mmol/L Carbon Dioxide (22-30) mmol/L Anion Gap mmol/L BUN (9-20) mg/dL Creatinine (0.66-1.25) mg/dL Est GFR (MDRD) Af Amer (>60 ml/min/1.73 sqM) Est GFR (MDRD) Non-Af (>60 ml/min/1.73 sqM) Glucose (74-99) mg/dL Calcium (8.4-10.2) mg/dL Magnesium (1.6-2.3) mg/dL Total Bilirubin (0.2-1.3) mg/dL AST (17-59) U/L ALT (21-72) U/L Alkaline Phosphatase (38-126) U/L Total Creatine Kinase (55-170) U/L CK-MB (CK-2) (0.0-2.4) ng/mL CK-MB (CK-2) Rel Index Troponin I (0.000-0.034) ng/mL Total Protein (6.3-8.2) g/dL Albumin (3.5-5.0) g/dL Critical Care Time Critical Care Time: Yes Total Critical Care Time: 35 Disposition Clinical Impression: Intractable back pain, Chest pain, Non-STEMI (non-ST elevated myocardial infarction) Disposition: ADMITTED IP TO THIS HOSP Referrals: Kamari Gomez MD [Primary Care Provider] - 1-2 days Time of Disposition: 15:39
[2017-06-24 14:22] LABS: Anisocytosis Slight; CH 30.9; CHCM 31.9; HCT 36.8 % (39.0-53.0); HDW 3.19; HGB 11.7 gm/dL (13.0-17.5); Hypochromasia Slight; Immature Gran Flag Moderate; MCH 31.1 pg (25.0-35.0); MCHC 31.9 g/dL (31.0-37.0); Macrocytosis Slight; Mean Platelet Volume 10.4; RBC 3.78 m/uL (4.30-5.90); RDW 19.4 % (11.5-15.5); WBC (Perox) 20.63
[2017-06-24 14:32] LABS: ALT 59 U/L (21-72); AST 131 U/L (17-59); Alkaline Phosphatase 127 U/L (38-126); Anion Gap 9 mmol/L; Blood Urea Nitrogen 33 mg/dL (9-20); Carbon Dioxide 24 mmol/L (22-30); Chloride 103 mmol/L (98-107); Glucose 85 mg/dL (74-99); Magnesium 1.9 mg/dL (1.6-2.3); Non-African American GFR(MDRD) >60 (>60 ml/min/1.73 sqM); Sodium 136 mmol/L (137-145); Total Bilirubin 1.2 mg/dL (0.2-1.3); Total Protein 6.7 g/dL (6.3-8.2)
[2017-06-24 14:35] LABS: MCV 97.4 fL (80.0-100.0)
[2017-06-24] MEDS ORDERED: CALCIUM CHLORIDE 100 MG/ML 10 ML SYRINGE IVP STA (14:36)
--- NOTE | 2017-06-24 14:50 | XR ---
EXAMINATION TYPE: XR chest 2V DATE OF EXAM: 06/24/2017 COMPARISON: 03/10/2017 HISTORY: Confusion TECHNIQUE: Frontal and lateral views of the chest are obtained. FINDINGS: Heart is normal. Thoracic aorta is atheromatous. There is some pleural thickening on the r ight posterior and lateral chest wall. There is mild nodular pulmonary infiltrate in the left midlung . There is no heart failure. There is slight blunting of the costophrenic angles. IMPRESSION: There is chronic right-sided pleural thickening without change compared to old exam. The re is some new nodular infiltrate in the left midlung compared to old exam.
[2017-06-24 14:56] LABS: INR 1.2 (<1.2); Prothrombin Time 12.3 sec (9.0-12.0)
[2017-06-24 14:57] LABS: Creatine Kinase MB 8.3 ng/mL (0.0-2.4); Troponin I 3.97 ng/mL (0.000-0.034)
[2017-06-24 15:05] LABS: Add Differential Manual Differential
[2017-06-24 15:08] LABS: Band Neutrophils % 16 %; Metamyelocytes % 2 %; Myelocytes % 2 %; Nucleated Red Blood Cells 1 /100 WBC (0-0); Total Cells Counted 200
[2017-06-24 15:09] LABS: WBC 19.8 k/uL (3.8-10.6)
[2017-06-24 15:11] LABS: Manual Review Performed; Polychromasia Present
[2017-06-24 15:13] LABS: Large Platelets Present
[2017-06-24] MEDS ORDERED: CALCIUM CHLORIDE 1,000 MG in SODIUM CHLORIDE 0.9% 100 ML IV ONE (15:21)
[2017-06-24] MEDS ORDERED: NITROGLYCERIN SL TABS 0.4 MG TAB SUBLINGUAL PRN (15:41)
[2017-06-24 20:04] LABS: Creatine Kinase MB 36.9 ng/mL (0.0-2.4); Troponin I 10.1 ng/mL (0.000-0.034)
[2017-06-24] MEDS: HYDROmorphone 1 MG/ML 1 ML SYRINGE IVP PRN (21:25)
[2017-06-25 02:11] LABS: Cholesterol 175 mg/dL (<200); HDL Cholesterol 26 mg/dL (40-60)
[2017-06-25 02:32] LABS: Creatine Kinase MB 46.3 ng/mL (0.0-2.4); Troponin I 17.5 ng/mL (0.000-0.034)
[2017-06-25] MEDS: HYDROmorphone 1 MG/ML 1 ML SYRINGE IVP PRN (03:28)
[2017-06-25] MEDS ORDERED: HYDROmorphone 1 MG/ML 1 ML SYRINGE IVP STA (08:06)
[2017-06-25] MEDS ORDERED: HYDROmorphone 2 MG/ML 1 ML SYRINGE IVP PRN (08:07)
[2017-06-25 08:31] VITALS: BP 131/79; PULSE 127; TEMP 97.8
--- NOTE | 2017-06-25 08:39 | P.CRDCN ---
History of Present Illness History of present illness: Consulted for abnormal cardiac enzymes and non-Q wave myocardial infarction in this gentleman who has metastatic cancer involving liver and kidneys and bones. He is also under considerable back pain and does not onset any questions. His LV lead EKG does not show any ST elevations Labs are reviewed white count is elevated, initially his potassium was 7.0 now it is 4.8 AST 131 alkaline phosphatase 127 Cardiac enzymes including troponins significantly elevated and consistent with an acute myocardial infarction 12 Lead ECG does not show any ST elevations On examination he is afebrile 98F pulse rate is about 180 beats a minute Blood pressure 137/90 mmHg Impression Metastatic cancer spread to several organ systems, advanced, poor overall medical condition, poor prognosis , in a lot of pain acute myocardial infarction non-Q-wave [place] based upon troponins that were sent from the emergency room Suggest Hospice care, comfort care no other interventions/testing please. Dr. Vee Past Medical History Past Medical History: Cancer Additional Past Medical History / Comment(s): recent diagnosis metastatic renal cell cancer History of Any Multi-Drug Resistant Organisms: None Reported Past Surgical History: Ear Surgery, Orthopedic Surgery, Tonsillectomy Past Anesthesia/Blood Transfusion Reactions: No Reported Reaction Smoking Status: Former smoker - Past Family History Father Family Medical History: Cancer Additional Family Medical History / Comment(s): dad 2015 from leukemia Mother Family Medical History: COPD, CVA/TIA Medications and Allergies Home Medications Medication Instructions Recorded Confirmed Type Pazopanib HCl [Votrient] 800 mg PO DAILY@0600 03/06/17 06/24/17 History Docusate [Colace] 100 mg PO DAILY@1999 PRN 04/28/17 06/24/17 History LORazepam [Ativan] 0.5 mg PO BID@0000,0600 04/28/17 06/24/17 History Vitamin B-17 1 tab PO DAILY@1200,199904/28/17 06/24/17 History Calcium Carbonate [Calcium] 600 mg PO DAILY@0000 05/25/17 06/24/17 History Dexamethasone [Hexadrol] 4 mg PO DAILY@0800 05/25/17 06/24/17 History Enoxaparin [Lovenox] 100 mg SQ BID@08,199905/25/17 06/24/17 History Magnesium 200 mg PO DAILY@0000 05/25/17 06/24/17 History Simethicone [Gas-X] 125 mg PO DAILY@199905/25/17 06/24/17 History oxyCODONE HCL 10 mg PO Q6H PRN 05/25/17 06/24/17 History DULoxetine HCL [Cymbalta] 30 mg PO DAILY@199906/24/17 06/24/17 History Dexamethasone [Hexadrol] 2 mg PO DAILY@199906/24/17 06/24/17 History Sami Stress Otc 1 tab PO DAILY@199906/24/17 06/24/17 History Milk Thistle 150 mg PO BID@1200,199906/24/17 06/24/17 History fentaNYL 75MCG/HR PATCH [Duragesic 1 patch TRANSDERM Q72H 06/24/17 06/24/17 History 75MCG/HR] Allergies Allergy/AdvReac Type Severity Reaction Status Date / Time adhesive tape Allergy Itching Verified 06/24/17 14:05 Physical Exam Vitals: Vital Signs Temp Pulse Pulse Resp BP BP Pulse Ox 06/25/17 08:26 97.8 F 127 H 18 131/79 95 06/25/17 04:32 98 F 108 H 19 137/90 96 06/25/17 00:00 99 128/86 06/24/17 21:00 96.1 F L 89 18 138/82 100 06/24/17 16:53 97.1 F L 71 18 149/88 99 06/24/17 16:12 97.1 F L 100 20 147/90 06/24/17 13:32 98.5 F 75 22 152/89 98 Intake and Output 06/24/17 06/25/17 06/25/17 22:59 06:59 14:59 Output Total 0 750 Balance 0 -750 Output: Urine 0 750 Other: Voiding Method Diaper Diaper Diaper # Voids 5 Results 06/24/17 13:23 06/24/17 14:45 Cardiac Enzymes 06/24/17 06/24/17 06/24/17 Range/Units 13:23 13:23 19:03 AST 131 H (17-59) U/L CK-MB (CK-2) 8.3 H* 36.9 H* (0.0-2.4) ng/mL Troponin I 3.970 H* 10.100 H* (0.000-0.034) ng/mL 06/25/17 Range/Units 01:40 AST (17-59) U/L CK-MB (CK-2) 46.3 H* (0.0-2.4) ng/mL Troponin I 17.500 H* (0.000-0.034) ng/mL Coagulation 06/24/17 Range/Units 13:23 PT 12.3 H (9.0-12.0) sec APTT 30.0 (22.0-30.0) sec Lipids 06/25/17 Range/Units 01:40 Triglycerides 214 H (<150) mg/dL Cholesterol 175 (<200) mg/dL HDL Cholesterol 26 L (40-60) mg/dL CBC 06/24/17 Range/Units 13:23 WBC 19.8 H (3.8-10.6) k/uL RBC 3.78 L (4.30-5.90) m/uL Hgb 11.7 L (13.0-17.5) gm/dL Hct 36.8 L (39.0-53.0) % Plt Count 98 L D (150-450) k/uL Comprehensive Metabolic Panel 06/24/17 06/24/17 Range/Units 13:23 14:45 Sodium 136 L (137-145) mmol/L Potassium 7.0 H* 4.8 (3.5-5.1) mmol/L Chloride 103 (98-107) mmol/L Carbon Dioxide 24 (22-30) mmol/L BUN 33 H (9-20) mg/dL Creatinine 0.68 (0.66-1.25) mg/dL Glucose 85 (74-99) mg/dL Calcium 9.0 (8.4-10.2) mg/dL AST 131 H (17-59) U/L ALT 59 (21-72) U/L Alkaline Phosphatase 127 H (38-126) U/L Total Protein 6.7 (6.3-8.2) g/dL Albumin 3.2 L (3.5-5.0) g/dL Current Medications Generic Name Dose Route Start Last Admin Trade Name Freq PRN Reason Stop Dose Admin Aspirin 325 mg 06/25/17 09:00 Aspirin PO DAILY DARRIN Hydromorphone HCl 1.5 mg 06/25/17 08:07 Dilaudid IVP Q4HR PRN Severe Pain Nitroglycerin 0.4 mg 06/24/17 15:41 Nitrostat SUBLINGUAL Q5M PRN Chest Pain Intake and Output 06/24/17 06/25/17 06/25/17 22:59 06:59 14:59 Output Total 0 750 Balance 0 -750 Output: Urine 0 750 Other: Voiding Method Diaper Diaper Diaper # Voids 5 06/24/17 13:23 06/24/17 14:45
[2017-06-25] MEDS ORDERED: ASPIRIN 325 MG TAB PO SCH (09:00)
[2017-06-25 11:43] VITALS: BMI 31.7
[2017-06-25] MEDS ORDERED: MORPHINE SULFATE 4 MG/ML SYRINGE IVP STA (13:09)
[2017-06-25] MEDS ORDERED: SCOPOLAMINE 1.5MG/72HR PATCH TRANSDERM SCH (14:00)
[2017-06-25] MEDS: MORPHINE SULFATE (100 MG/2 ML) 100 MG in SODIUM CHLORIDE 0.9% 100 ML IV SCH ×2 (14:46→22:45)
[2017-06-25] MEDS: LORazepam 2 MG/ML SYRINGE IV PRN ×4 (16:44→23:41)
--- NOTE | 2017-06-25 16:50 | P.HPIM ---
History of Present Illness H&P Date: 06/25/17 Is a 62-year-old gentleman with metastatic renal cell cancer. Patient apparently has progressive worsening of disease in the recent times with lesions in his skull and his right lower x-ray. Patient comes in the hospital with change in mental status Patient apparently has been having some chest pain. Was noted to have an elevated troponin in the emergency room unsure why this troponin was done in a patient with the terminal diagnosis However patient was brought into the hospital. This morning patient was nonresponsive lethargic. Patient's exercise to rule out was at bedside who verbalized understanding his poor prognosis apparently they have had a discussion with the entire family in the past patient has not accepted his diagnosis to about 8-10 days ago and he stated that he knew he was dying Patient has not given any history is moaning currently. I did direct to give 2 mg of Dilaudid however patient appears to be refractory to the pain Patient's DPOAE who is his brother was not at bedside during my evaluation and a direct the conversation to be informed to the brother for further recommendations in goals of care. Review of Systems ROS unobtainable: due to mental status Past Medical History Past Medical History: Cancer Additional Past Medical History / Comment(s): recent diagnosis metastatic renal cell cancer History of Any Multi-Drug Resistant Organisms: None Reported Past Surgical History: Ear Surgery, Orthopedic Surgery, Tonsillectomy Past Anesthesia/Blood Transfusion Reactions: No Reported Reaction Past Psychological History: No Psychological Hx Reported Smoking Status: Former smoker Past Alcohol Use History: Occasional Past Drug Use History: None Reported Additional Drug Use History / Comment(s): pt states still smokes marijuana - Past Family History Father Family Medical History: Cancer Additional Family Medical History / Comment(s): dad 2016 from leukemia Mother Family Medical History: COPD, CVA/TIA Medications and Allergies Home Medications Medication Instructions Recorded Confirmed Type Pazopanib HCl [Votrient] 800 mg PO DAILY@0600 03/06/17 06/24/17 History Docusate [Colace] 100 mg PO DAILY@1999 PRN 04/28/17 06/24/17 History LORazepam [Ativan] 0.5 mg PO BID@0000,0600 04/28/17 06/24/17 History Vitamin B-17 1 tab PO DAILY@1200,2000 04/28/17 06/24/17 History Calcium Carbonate [Calcium] 600 mg PO DAILY@05/25/17 06/24/17 History Dexamethasone [Hexadrol] 4 mg PO DAILY@79905/25/17 06/24/17 History Enoxaparin [Lovenox] 100 mg SQ BID@799,199905/25/17 06/24/17 History Magnesium 200 mg PO DAILY@05/25/17 06/24/17 History Simethicone [Gas-X] 125 mg PO DAILY@199905/25/17 06/24/17 History oxyCODONE HCL 10 mg PO Q6H PRN 05/25/17 06/24/17 History DULoxetine HCL [Cymbalta] 30 mg PO DAILY@199906/24/17 06/24/17 History Dexamethasone [Hexadrol] 2 mg PO DAILY@199906/24/17 06/24/17 History Sami Stress Otc 1 tab PO DAILY@199906/24/17 06/24/17 History Milk Thistle 150 mg PO BID@1199,199906/24/17 06/24/17 History fentaNYL 75MCG/HR PATCH [Duragesic 1 patch TRANSDERM Q72H 06/24/17 06/24/17 History 75MCG/HR] Allergies Allergy/AdvReac Type Severity Reaction Status Date / Time adhesive tape Allergy Itching Verified 06/24/17 14:05 Physical Exam Vitals: Vital Signs Temp Pulse Resp BP Pulse Ox 06/25/17 08:47 95 06/25/17 08:26 97.8 F 127 H 18 131/79 95 06/25/17 04:32 98 F 108 H 19 137/90 96 06/25/17 00:00 99 128/86 06/24/17 21:00 96.1 F L 89 18 138/82 100 06/24/17 16:53 97.1 F L 71 18 149/88 99 Intake and Output 06/25/17 06/25/17 06/25/17 06:59 14:59 22:59 Intake Total 3.067 Output Total 750 Balance -750 3.067 Intake: Intake, IV Titration 3.067 Amount Morphine Sulfate (100 mg/ 3.067 2 ml) 100 mg In Sodium Chloride 0.9% 100 ml @ Titrate IV .Q0M [facility] Rx#: [id number] Output: Urine 750 Other: Voiding Method Diaper Diaper # Voids 5 2 Weight 97.522 kg Patient Weight 06/26/17 06:59 Weight 97.522 kg Gen. appearance lethargic Lungs diminished breath sounds Heart S1-S2 heard no murmurs or patient Abdomen is distended Lower ext. is no edema noted Neuro is deferred Results CBC & Chem 7: 06/24/17 13:23 06/24/17 14:45 Labs: Abnormal Lab Results - Last 24 Hours (Table) 06/24/17 06/25/17 06/25/17 Range/Units 19:03 01:40 01:40 Total Creatine Kinase 213 H 303 H (55-170) U/L CK-MB (CK-2) 36.9 H* 46.3 H* (0.0-2.4) ng/mL Troponin I 10.100 H* 17.500 H* (0.000-0.034) ng/mL Triglycerides 214 H (<150) mg/dL LDL Cholesterol, Calc 106 H (0-99) mg/dL HDL Cholesterol 26 L (40-60) mg/dL Thrombosis Risk Factor Assmnt - Choose All That Apply Each Factor Represents 1 point: Acute MO, Age 41-60 years Each Risk Factor Represents 3 Points: History of DVT/PE Thrombosis Risk Factor Assessment Total Risk Factor Score: 5 Thrombosis Risk Factor Assessment Level: High Risk Assessment and Plan Plan: #1 metastatic renal cell cancer #2 acute metabolic encephalopathy Plan Patient's prognosis is extremely poor. Patient's family verbalizes to understand that his quality of life is more important. They do understand no amount of therapy would increase his lifespan. Patient did receive radiation to the head palliative Patient was started on an oral chemotherapeutic agent as a palliative measure as well This is goals of care changed to comfort measures only patient will have a hospice consultation patient was started on a morphine drip and Ativan infusion when necessary Scopolamine patch will be initiated This was discussed with the family
[2017-06-26 01:17] VITALS: RESP 16
== END 2017-06-26 01:19 | disposition still patient (30) | DRG 686 ==
LOC: EC 13:09 → 6SEL 15:42 → 5ONC 06-25 12:15
PROVIDERS: ADMIT Internal Medicine; ATTEND Internal Medicine
DX: C64.9 Malignant neoplasm of unspecified kidney, except renal pelvis (principal); G93.41 Metabolic encephalopathy; I21.4 Non-ST elevation (NSTEMI) myocardial infarction; C78.7 Secondary malignant neoplasm of liver and intrahepatic bile duct; C79.51 Secondary malignant neoplasm of bone; Z51.5 Encounter for palliative care; Z66 Do not resuscitate; M54.9 Dorsalgia, unspecified; F12.90 Cannabis use, unspecified, uncomplicated; Z87.891 Personal history of nicotine dependence; Z80.6 Family history of leukemia; Z82.5 Family history of asthma and other chronic lower respiratory diseases; Z82.3 Family history of stroke; Z79.899 Other long term (current) drug therapy; Z79.891 Long term (current) use of opiate analgesic; Z79.02 Long term (current) use of antithrombotics/antiplatelets; Z91.048 Other nonmedicinal substance allergy status; Z90.49 Acquired absence of other specified parts of digestive tract; Z86.69 Personal history of other diseases of the nervous system and sense organs; Z87.39 Personal history of other diseases of the musculoskeletal system and connective tissue; Z92.21 Personal history of antineoplastic chemotherapy; Z92.3 Personal history of irradiation
CPT/HCPCS: 36415; 71020; 80053; 80061; 82550; 82553; 83735; 84132; 84484; 85025; 85610; 85730; 93005; 94760; 96361; 96374; 96375; 99291

== ENCOUNTER 2017-06-26 01:23 | Inpatient (IN) | payer MEDICAID ==
[2017-06-26] MEDS ORDERED: ARTIFICIAL TEARS-HYPROMELLOSE DROPS 15 ML BTL BOTH EYES PRN (01:27)
[2017-06-26] MEDS ORDERED: SCOPOLAMINE 1.5MG/72HR PATCH TRANSDERM PRN (01:27)
[2017-06-26] MEDS ORDERED: ACETAMINOPHEN SUPPOSITORY 650 MG SUPP RECTAL PRN (01:27)
[2017-06-26] MEDS ORDERED: LORazepam 2 MG/ML SYRINGE IV PRN (01:27)
[2017-06-26 01:41] VITALS: RESP 16
[2017-06-26] MEDS: MORPHINE SULFATE (100 MG/2 ML) 100 MG in SODIUM CHLORIDE 0.9% 100 ML IV SCH ×2 (02:13→07:28)
[2017-06-26 04:34] VITALS: TEMP 98.4
[2017-06-26] MEDS ORDERED: HYOSCYAMINE ORAL DROPS 1.875 MG/15 ML BOTTLE PO PRN (07:30)
--- NOTE | 2017-06-26 16:04 | P.HPIM ---
History of Present Illness H&P Date: 06/26/17 (Discharge summary as well) This is a 62-year-old with advanced renal cell cancer was initially admitted with change in mental status after discussion with the family comfort measures were answered patient is admitted to hospice this is a history of physical and discharge summary for that During my evaluation today patient appeared to be lethargic no symptoms that are uncontrollable were reported by the nursing staff Past Medical History Past Medical History: Cancer Additional Past Medical History / Comment(s): recent diagnosis metastatic renal cell cancer History of Any Multi-Drug Resistant Organisms: None Reported Past Surgical History: Ear Surgery, Orthopedic Surgery, Tonsillectomy Past Anesthesia/Blood Transfusion Reactions: No Reported Reaction Past Psychological History: No Psychological Hx Reported Smoking Status: Former smoker Past Alcohol Use History: Occasional Past Drug Use History: None Reported Additional Drug Use History / Comment(s): pt states still smokes marijuana - Past Family History Father Family Medical History: Cancer Additional Family Medical History / Comment(s): dad 2015 from leukemia Mother Family Medical History: COPD, CVA/TIA Medications and Allergies Home Medications Medication Instructions Recorded Confirmed Type Pazopanib HCl [Votrient] 800 mg PO DAILY@0600 03/06/17 06/26/17 History Docusate [Colace] 100 mg PO DAILY@1999 PRN 04/28/17 06/26/17 History LORazepam [Ativan] 0.5 mg PO BID@0000,0600 04/28/17 06/26/17 History Vitamin B-17 1 tab PO DAILY@1200,199904/28/17 06/26/17 History Calcium Carbonate [Calcium] 600 mg PO DAILY@0000 05/25/17 06/26/17 History Dexamethasone [Hexadrol] 4 mg PO DAILY@0800 05/25/17 06/26/17 History Enoxaparin [Lovenox] 100 mg SQ BID@08,199905/25/17 06/26/17 History Magnesium 200 mg PO DAILY@0000 05/25/17 06/26/17 History Simethicone [Gas-X] 125 mg PO DAILY@199905/25/17 06/26/17 History oxyCODONE HCL 10 mg PO Q6H PRN 05/25/17 06/26/17 History DULoxetine HCL [Cymbalta] 30 mg PO DAILY@199906/24/17 06/26/17 History Dexamethasone [Hexadrol] 2 mg PO DAILY@199906/24/17 06/26/17 History Sami Stress Otc 1 tab PO DAILY@199906/24/17 06/26/17 History Milk Thistle 150 mg PO BID@1200,199906/24/17 06/26/17 History fentaNYL 75MCG/HR PATCH [Duragesic 1 patch TRANSDERM Q72H 06/24/17 06/26/17 History 75MCG/HR] Allergies Allergy/AdvReac Type Severity Reaction Status Date / Time adhesive tape Allergy Itching Verified 06/26/17 07:21 Physical Exam Vitals: Vital Signs Temp Resp 06/26/17 08:00 16 06/26/17 04:34 98.4 F 06/26/17 02:17 101 F H 06/26/17 01:36 16 Intake and Output 06/26/17 06/26/17 06/26/17 06:59 14:59 22:59 Intake Total 34.850 24.8 Output Total 100 Balance -65.150 24.8 Intake: Intake, IV Titration 34.850 24.8 Amount Morphine Sulfate (100 mg/ 34.850 24.8 2 ml) 100 mg In Sodium Chloride 0.9% 100 ml @ 1 MG/HR 1.02 mls/hr IV . Q24H [facility] Rx#:[id number] Output: Urine 100 Other: Voiding Method Indwelling Catheter Indwelling Catheter Weight 97.52 kg Gen. appearance lethargic Lungs coarse breath sounds Heart bradycardic Abdomen soft. Assessment and Plan Plan: #1 metastatic RCC Plan Comfort measures were ensured We'll give the patient additional bolus of morphine as patient does appear to have intermittent episodes of tachypnea.
== END 2017-06-26 14:15 | disposition expired | DRG 844 ==
LOC: 5ONC 01:23
PROVIDERS: ADMIT Internal Medicine; ATTEND Internal Medicine
DX: C79.9 Secondary malignant neoplasm of unspecified site (principal); C64.9 Malignant neoplasm of unspecified kidney, except renal pelvis; Z66 Do not resuscitate; Z51.5 Encounter for palliative care; R41.82 Altered mental status, unspecified; F12.90 Cannabis use, unspecified, uncomplicated; Z79.899 Other long term (current) drug therapy; Z87.891 Personal history of nicotine dependence; Z82.5 Family history of asthma and other chronic lower respiratory diseases; Z80.6 Family history of leukemia